=== PATIENT | male | born 1955 | race Caucasian/White ===

== ENCOUNTER → 2024-06-14 08:42 | Outpatient (BNVA) | payer MEDICARE, SELFPAY | PROVIDERS: PCP Nurse Practitioner Family; Visit Provider Nurse Practitioner Family | DX: Z13.6 Encounter for screening for cardiovascular disorders (principal); Z12.5 Encounter for screening for malignant neoplasm of prostate; E55.9 Vitamin D deficiency, unspecified; Z79.899 Other long term (current) drug therapy | CPT/HCPCS: 80053; 80061; 81003; 82306; 83036; 84443; 85025; G0103 ==

== ENCOUNTER → 2024-12-07 09:17 | Outpatient (BNVA) | payer MEDICARE, SELFPAY | PROVIDERS: PCP Nurse Practitioner Family; Visit Provider Nurse Practitioner Family | DX: L20.89 Other atopic dermatitis (principal); D22.39 Melanocytic nevi of other parts of face; D22.5 Melanocytic nevi of trunk; L57.8 Other skin changes due to chronic exposure to nonionizing radiation; L57.0 Actinic keratosis; X32.XXXA Exposure to sunlight, initial encounter; Z08 Encounter for follow-up examination after completed treatment for malignant neoplasm; Z85.820 Personal history of malignant melanoma of skin | CPT/HCPCS: 99204 ==

== ENCOUNTER 2025-02-22 12:14 | Emergency (ER) | payer MEDICARE, SELFPAY ==
--- OUTSIDE RECORDS SUMMARY | 2025-02-15 06:16 | XMS_ITS | Encounter Summary ---
Author Organization [facility] Address 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 Emergency Medicine [address] [facility] [address] [place] [address] Flako Bryant MD [address] [place] [phone] Billy Merritt MD [address] [place] [address] [place] [address] Acute bronchitis, unspecified organism (Primary Dx); Dysuria; Leukocytosis, unspecified type Discharge Disposition: Home or Self Care Social History Tobacco Use Types Packs/Day Years Used Date Smoking Tobacco: Never Smokeless Tobacco: Former Alcohol Use Standard Drinks/Week Comments Not Currently 0 (1 standard drink = 0.6 oz pure alcohol) Patient says he quit alcohol completely November 2022 Food Insecurity Answer Date Recorded Do you find you are eating l ess than you should because you can t pay for food? No 02/15/2025 Transportation Needs Answer Date Record ed Have you gone without health care because you didn t have a way to get there? Or worry about transportation for future doctor visits, knot picker cloth medication, etc.? No 2024 Housing Stability Answer Date Recorded Do you worry you won t have a steady place to sleep or struggle to pay rent or mortgage? No 02/15/2025 Utility Needs Answer Date Recorded Do you have difficulty payin g for utility costs (electric, water or gas bills)? No 02/15/2025 Medication Needs Answer Date Recorded Have you skipped taking medi cation due to cost or worry you can t afford new medications? No 02/15/2025 Feeling Safe Answer Date Recorded Are you in a relationship wi th someone who hurts you emotionally and/or physically? 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 Gender Identity Not on file Sexual Orientation Not on file documented as of this encounter Last Filed Vital Signs Vital Sign Reading Time Taken Comments Blood Pressure 113/64 02/15/2025 8:30 AM CDT Pulse 70 02/15/2025 8:30 AM CDT Temperature 36.1 C (97 F) 02/15/2025 6:20 AM CDT Respiratory Rate 15 02/15/2025 8:30 AM CDT Oxygen Saturation 99% 02/15/2025 8:30 AM CDT Inhaled Oxygen Concentration - - Weight 76.5 kg (168 lb 9.6 oz) 02/15/2025 6:20 A M CDT Height 182.9 cm (6') 02/15/2025 6:20 AM CDT Body Mass Index 22.87 02/15/2025 6:20 AM CDT documented in this encounter Discharge Instructions * Attachments The following attachments cannot be sent through Care Everywhere. * WBC: Elevated: General Info (Citizen Of [place]) * Dysuria ([place]izen [place]) * Bronchitis ([place]izen [place]) * Levofloxacin (Citizen [place]) documented in this encounter Medications at Time of Discharge omeprazole (PriLOSEC) 10 mg Capsule, Delayed Release(E.C.) Take 20 mg by mouth daily. levoFLOXacin (LEVAQUIN) 500 mg tablet Take 1 Tablet (500 mg) by mouth daily for 7 days. 7 Tablet 02/15/2025 02/22/2025 prednisoLONE 5 mg tablet Take 10 mg by mouth daily. ALPRAZolam (XANAX) 1 mg tablet Take 1 mg by mouth 3 times daily as needed. 10/27/2022 lovastatin (MEVACOR) 40 mg tablet Take 40 mg by mouth daily. 10/13/2022 famotidine (PEPCID) 20 mg tablet Take 20 mg by mouth daily. 10/27/2022 clonazePAM (KlonoPIN) 1 mg tabletIndications :MIGUEL A (generalized anxiety disorder) Take 1 Tablet (1 mg) by mouth 2 times daily as needed for Anxiety. 60 Tablet 5 07/15/2017 documented as of this encounter ED Notes * Elicia Phillips RN - 02/15/2025 6:27 AM CDT Srini Garcia is a 69 y.o. male who arrives to the Emergency Department by private car. Chief Complaint Patient presents with general weakness Cough Shortness of Breath Urinary Pain Patient states he feels like his blood levels are low again . Patient states he is having the samesymptoms as previously when he needed a blood transfusion. Patient is having general weakness, shortness of breath and dry cough. Patient also complains of burning with urination. Pain is 0/10. VSS, aaox4, behavior appropriate to circumstance, no acute distress at this time. Airway patent, self-maintained with even, non-labored respirations. Perfusion within normal limits for age. Skin color normal for ethnicity, warm, dry and intact. ID band present. Patient in bed in low position with wheels locked. Patient informed of plan of care. Patient verbalized understanding and in agreement with plan of care, all questions answered. Comfort measures offered. Monitors on and audible. Patient placed on continuous pulse ox and blood pressure monitoring. Call light at bedside. Patient encouraged to call with needs. Will continue to monitor. Weapons assessment performed. Education provided regarding facility weapon storage and securement policy. Srini Garcia denied possession of any weapons or firearms at this time * Billy Merritt MD - 02/15/2025 6:11 AM CDT 02/15/25 6:45 AM HISTORY OF PRESENT ILLNESS History of Present Illness This is a 69-year-old male with a history of watermelon stomach presenting to the ER feeling likehe is anemic. The patient reports feeling weak and fatigued for the past 3 days, similar to his condition 3 to 4 weeks ago when he experienced blood loss. He has not noticed any coffee ground stools, vomiting blood, or passing blood by rectum. He also reports no fevers or chills. He has been experiencing a dry cough for the past 3 to 4 days, which had previously subsided. He maintains hydration by consuming Sprite and water but experiences extreme thirst at night. He was diagnosed with watermelon stomach following 3 biopsies and was prescribed Prilosec, which has been effective in managing his stomach pain. He has been mindful of his diet, avoiding overeating and consuming Yakut yogurt. He occasionally takes Mylanta. He reports no current abdominal pain. The patient reports a burning sensation during urination but has no concerns about sexually transmitted diseases as he has had the same partner for a long time. PAST MEDICAL HISTORY REVIEWED MEDICAL: Patient has a past medical history of Anxiety, Hypercholesterolemia, Inflammatory arthritis, Joint pain, Malignant neoplasm of skin, and Prostatitis. SURGICAL: Patient has a past surgical history that includes pr colonoscopy flx dx w/collj spec when pfrmd (N/A, 03/04/2016); vasectomy; circumcision revision; skin cancer excision; and colonoscopy (N/A, 01/23/2023). ALLERGIES Patient has no known allergies. PHYSICAL EXAM INITIAL VS BP: 101/70 (02/15/25619), Heart Rate: 76 bpm (02/15/25619), Resp: 15 (02/15/25619), Pulse: 76(02/15/25619), Temp: 97 ??F (36.1 ??C) (02/15/25619), Temp src: Tympanic (02/15/25619), SpO2:96 % (02/15/25619), Height: 6' (182.9 cm) (02/15/25619), Weight: 76.5 kg (168 lb 9.6 oz) (02/15/25619), BMI (Calculated): 22.87 (02/15/25619) No LMP for male patient. Blood pressure 113/64, pulse 70, temperature 97 ??F (36.1 ??C), temperature source Tympanic, resp. rate 15, height 6' (1.829 m), weight 76.5 kg (168 lb 9.6 oz), SpO2 99%. Physical Exam Constitutional: General: He is not in acute distress. Appearance: He is well-developed and normal weight. He is not ill-appearing, toxic-appearing or diaphoretic. Cardiovascular: Rate and Rhythm: Normal rate and regular rhythm. Heart sounds: No murmur heard. No friction rub. No gallop. Pulmonary: Effort: Pulmonary effort is normal. Breath sounds: Normal breath sounds. No decreased breath sounds, wheezing, rhonchi or rales. Abdominal: Palpations: Abdomen is soft. There is no mass. Tenderness: There is no abdominal tenderness. There is no guarding or rebound. Musculoskeletal: General: Normal range of motion. Cervical back: Normal range of motion. Skin: General: Skin is warm and dry. Capillary Refill: Capillary refill takes less than 2 seconds. Neurological: General: No focal deficit present. Mental Status: He is alert and oriented to person, place, and time. Psychiatric: Mood and Affect: Mood normal. Behavior: Behavior normal. Physical Exam Constitutional: No acute distress Respiratory: Dry cough noted Gastrointestinal: No abdominal pain Genitourinary: Burning sensation during urination DIAGNOSTICS LAB: CBC WITH DIFFERENTIAL - Abnormal Result Value WBC 34.1 (*) RBC 2.53 (*) HEMOGLOBIN 9.0 (*) HEMATOCRIT 26.7 (*) MCV 105.5 (*) MCH 35.6 (*) MCHC 33.7 RDW 17.2 (*) RDW-STDEV 66.1 (*) PLATELETS 136 MPV 9.7 (*) NEUTROPHILS 28 (*) LYMPHOCYTES 20 (*) MONOCYTES 52 (*) EOSINOPHILS 0 (*) BASOPHILS 0 IMMATURE GRANULOCYTES 0 NEUTROPHIL ABSOLUTE 9.50 (*) LYMPHOCYTE ABSOLUTE 6.83 (*) MONOCYTE ABSOLUTE 17.54 (*) EOSINOPHIL ABSOLUTE 0.14 BASOPHILS ABSOLUTE 0.07 IMMATURE GRANULOCYTES ABSOLUTE 0.00 COMPREHENSIVE METABOLIC PANEL - Abnormal SODIUM 138 POTASSIUM 3.8 CHLORIDE 102 CO2 24 CALCIUM 8.8 BUN 16 CREATININE 1.13 GLUCOSE 109 (*) TOTAL PROTEIN 7.2 ALBUMIN 3.7 BILIRUBIN TOTAL 0.6 ALKALINE PHOSPHATASE 67 AST 15 ALT 12 GFR >60 ANION GAP 12 URINALYSIS WITH REFLEX MICROSCOPIC - Abnormal COLOR UA Yellow CLARITY UA Slightly Cloudy (*) SPECIFIC GRAVITY UA 1.015 PH UA 5.5 LEUKOCYTE ESTERASE UA Trace (*) NITRITE UA Negative PROTEIN UA Trace (*) GLUCOSE UA Negative KETONES UA Trace (*) UROBILINOGEN UA 0.2 BILIRUBIN UA Negative BLOOD UA Negative PROTIME-INR - Abnormal PROTIME 15.4 (*) INR 1.2 (*) INFLUENZA VIRUS A AND B, ANTIGEN DETECTION - Normal INFLUENZA A AG Not Detected INFLUENZA B AG Not Detected COVID-19 ANTIGEN - Normal COVID-19 ANTIGEN Presumptive Negative LACTIC ACID - Normal LACTIC ACID 1.1 BLOOD CULTURE BLOOD CULTURE BLOOD CULTURE BLOOD CULTURE MANUAL DIFFERENTIAL PLATELET EST. Consistent w Count RBC MORPHOLOGY Normal RADIOLOGY: XR CHEST PA OR AP 1 VW Radiologist Impression IMPRESSION: Please see below. Exam: XR CHEST PA OR AP 1 VW Date/Time of Exam: 02/15/2025 8:17 AM REASON FOR EXAM: Cough. DIAGNOSIS: See Reason for Exam. Findings: Comparison is made to the prior examination from 07/14/2017. There is some minimal infrahilar peribronchial thickening seen bilaterally. There is no peripheral consolidation, pneumothorax, or pleural effusion. The cardiac mediastinal silhouette is stable in appearance. Old healed left-sided rib fractures are again noted. There is a central mixed densities lesion in the proximal left humerus which is unchanged since 2018, likely representing a benign process such as bone infarct or enchondroma. IMPRESSION: Minimal infrahilar peribronchial thickening which could indicate bronchitis in the proper clinical setting. EKG: Results Laboratory Studies Hemoglobin is 8.9. Results independently interpreted by Billy Merritt MD PROCEDURES Procedures MEDICAL DECISION MAKING AND PLAN OF CARE Assessment & Plan Initial Assessment: 69-year-old male with a history of watermelon stomach presenting with symptoms of fatigue and weakness, suspecting anemia. Differential Diagnosis: - Anemia: Hemoglobin level 8.9, previously 6.5. Positive response to Prilosec. Fatigue likely not due to anemia. Administer liter of fluid. - Urinary Tract Infection (UTI): Reports burning during urination. Urine test to check for bacterial infection. ED Course: - Hemoglobin level obtained, 8.9 - Liter of fluid administered Final Assessment: Hemoglobin level increased to 8.9, indicating improvement. Fatigue likely not due to anemia. Administered liter of fluid. Urine test to check for UTI due to burning during urination. Clinical Impression: - Anemia - Urinary Tract Infection (UTI) Disposition: - Follow-Up: Urine test results pending Medical Decision Making I assumed care of this patient at shift change. Some of the labs were pending. I did interview and examine the patient. Patient has been fatigued for the past 3 days with a nonproductive cough as well. Some dysuria. No fever. He is not having any abdominal pain. Has not noticed any blood in his stools. States he had an EGD done with biopsies 2 weeks ago and has been diagnosed with watermelon stomach. His white count today is 34.1. Hemoglobin 9.0. CMP was normal. Urinalysis within normal limits. Lactic acid 1.1. Influenza and COVID-negative. Chest x-ray did not reveal any infiltrates. I discussed patient's lab results with him. He is somewhat anemic but not to the point where he needs another blood transfusion. He does have significant leukocytosis. Discussed whether or not he is currently on steroids. He had been prescribed prednisolone but he states he never did start taking that. Was alsoprescribed an antibiotic for bronchitis but had not started taking that either. At this point not sure what is causing that severe leukocytosis but he does not appear to be septic or toxic. I did place him on Levaquin to treat bronchitis as well as possible mild urinary tract and infection and/or prostatitis with the dysuria he is having. That should cover both. Recommended he follow-up with his primary care provider in 1 week for recheck of his CBC. If he continues to have a severe leukocytosis will need referral to hematology for further workup. He was discharged in stable condition. Amount and/or Complexity of Data Reviewed Labs: ordered. Radiology: ordered. Risk Prescription drug management. Clinical Scoring & Consults Medications Administered During the ED Stay from 02/15/2025 0611 to 02/16/2025 1038 Date/Time Order Dose Route Action 02/15/2025 0807 CDT sodium chloride 0.9 % bolus solution 1,000 mL 0 mL IV Stopped 02/15/2025 0737 CDT sodium chloride 0.9 % bolus solution 1,000 mL 1,000 mL IV New Bag Discharge Medication List as of 02/15/2025 8:41 AM START taking these medications Details levoFLOXacin (LEVAQUIN) 500 mg tablet Take 1 Tablet (500 mg) by mouth daily for 7 days., Disp-7 Tablet, R-0 CONTINUE these medications which have NOT CHANGED Details omeprazole (PriLOSEC) 10 mg Capsule, Delayed Release(E.C.) Take 20 mg by mouth daily. prednisoLONE 5 mg tablet Take 10 mg by mouth daily. ALPRAZolam (XANAX) 1 mg tablet Take 1 mg by mouth 3 times daily as needed. lovastatin (MEVACOR) 40 mg tablet Take 40 mg by mouth daily. famotidine (PEPCID) 20 mg tablet Take 20 mg by mouth daily. clonazePAM (KlonoPIN) 1 mg tablet Take 1 Tablet (1 mg) by mouth 2 times daily as needed for Anxiety., Disp-60 Tablet, R-5 STOP taking these medications meloxicam (MOBIC) 15 mg tablet Comments: Reason for Stopping: LAST VS BP: 113/64 (02/15/25829), Heart Rate: 76 bpm (02/15/25619), Resp: 15 (02/15/25829), Pulse: 70(02/15/25829), Temp: 97 ??F (36.1 ??C) (02/15/25619), Temp src: Tympanic (02/15/25619), SpO2:99 % (02/15/25829) CLINICAL IMPRESSION Diagnoses Diagnosis Comment Added By Time Added Acute bronchitis, unspecified organism [J20.9] Billy Merritt MD 02/15/2025 8:38 AM Dysuria [R30.0] Billy Merritt MD 02/15/2025 8:38 AM Leukocytosis, unspecified type [D72.829] Billy Merritt MD 02/15/2025 8:38 AM DISPOSITION, EDUCATION AND MEDICATION RECONCILIATION Medications reconciled. See after visit summary for patient education on discharged patients. ED Disposition ED Disposition Discharge Condition Stable User Billy Merritt MD Date/Time ThuFeb 15, 2025 8:37 AM Comment -- documented in this encounter Miscellaneous Notes * Gen AI YNOI - GENERATIVE AI HANDOFF NOTE - 02/16/2025 11:43 PM CDT ## ER_course: ## # DIAGNOSIS: Acute bronchitis, dysuria, and leukocytosis. # Srini Garcia, a 69-year-old male with a history of watermelon stomach, presented to the ER with symptoms of general weakness, shortness of breath, dry cough, and burning sensation during urination. He suspected anemia due to similar symptoms experienced previously when he required a blood transfusion. # Abnormal findings included a hemoglobin level of 8.9, indicating mild anemia, and significant leukocytosis with a white blood cell count of 34.1. The chest X-ray showed minimal infrahilar peribronchial thickening, suggestive of bronchitis. Urinalysis showed trace leukocyte esterase and protein, with slightly cloudy urine. # During the ER visit, the patient received a liter of IV fluid. Levofloxacin (Levaquin) was administered to treat suspected bronchitis and possible mild urinary tract infection or prostatitis. The patient was not in acute distress and was discharged in stable condition. ## Follow_up_orders: ## # The patient was started on a new prescription of levofloxacin (Levaquin) 500 mg daily for 7 days. # The patient is advised to follow up with his primary care provider in one week for a recheck of his CBC. If severe leukocytosis persists, a referral to hematology for further workup is recommended. # Urine test results are pending at discharge. # The patient was instructed to stop taking meloxicam (Mobic). ## Home_Situation: ## # No specific factors potentially impairing follow-up care were noted in the ER notes. documented in this encounter Plan of Treatment Not on file documented as of this encounter Procedures Procedure Name Priority Date/Time Associated Diagnosis Comments XR CHEST PA OR AP 1 VW Stat 8:17 AM CDT URINALYSIS W/REFLEX MICROSCOPIC Stat 02/15/2025 7:40 AM CDT COVID-19 ANTIGEN Stat 02/15/2025 7:38 AM CDT INFLUENZA VIRUS A AND B, ANTIGEN DETECTION Stat 02/15/2025 7:38 AM CDT BLOOD CULTURE Stat 02/15/2025 7:35 AM CDT BLOOD CULTURE Stat 02/15/2025 7:35 AM CDT BLOOD CULTURE Stat 02/15/2025 7:30 AM CDT BLOOD CULTURE Stat 02/15/2025 7:30 AM CDT DIFFERENTIAL, MANUAL Stat 02/15/2025 6:28 AM CDT LACTIC ACID Stat 02/15/2025 6:28 AM CDT CBC WITH DIFFERENTIAL Stat 02/15/2025 6:28 AM CDT PROTIME-INR Stat 02/15/2025 6:28 AM CDT COMPREHENSIVE METABOLIC PANEL Stat 02/15/2025 6:28 AM CDT documented in this encounter Results * XR CHEST PA OR AP 1 VW (02/15/2025 8:17 AM CDT) Anatomical Region Laterality Modality Chest Computed Radiogr aphy 02/15/2025 8:17 AM CDT Impressions 02/15/2025 8:31 AM CDT IMPRESSION: Please see below. Exam: XR CHEST PA OR AP 1 VW Date/Time of Exam: 02/15/2025 8:17 AM REASON FOR EXAM: Cough. DIAGNOSIS: See Reason for Exam. Findings: Comparison is made to the prior examination from 07/14/2017. There is some minimal infrahilar peribronchial thickening seen bilaterally. There is no peripheral consolidation, pneumothorax, or pleural effusion. The cardiac mediastinal silhouette is stable in appearance. Old healed left-sided rib fractures are again noted. There is a central mixed densities lesion in the proximal left humerus which is unchanged since 2018, likely representing a benign process such as bone infarct or enchondroma. IMPRESSION: Minimal infrahilar peribronchial thickening which could indicate bronchitis in the proper clinical setting. Narrative Procedure Note Gus Sargent MD - 02/15/2025 IMPRESSION: Please see below. Exam: XR CHEST PA OR AP 1 VW Date/Time of Exam: 02/15/2025 8:17 AM REASON FOR EXAM: Cough. DIAGNOSIS: See Reason for Exam. Findings: Comparison is made to the prior examination from 07/14/2017. There is some minimal infrahilar peribronchial thickening seen bilaterally. There is no peripheral consolidation, pneumothorax, or pleural effusion. The cardiac mediastinal silhouette is stable in appearance. Old healed left-sided rib fractures are again noted. There is a central mixed densities lesion in the proximal left humerus which is unchanged since 2018, likely representing a benign process such as bone infarct or enchondroma. IMPRESSION: Minimal infrahilar peribronchial thickening which could indicate bronchitis in the proper clinical setting. us Billy Merritt MD DIAGNOSTIC IMAGING ORDER LUIS E Final Result * (ABNORMAL) URINALYSIS WITH REFLEX MICROSCOPIC (02/15/2025 7:40 AM CDT) COLOR UA Yellow Pale to Dark Yellow 02/15/2025 7:51 AM [facility] CLARITY UA Slightly Cloudy(A) Clear 02/15/2025 7:51 AM [facility] SPECIFIC GRAVITY UA 1.015 1.003 - 1.035 02/15/2025 7:51 AM T [facility] PH UA 5.5 5.0 - 8.0 02/15/2025 7:51 AM [facility] LEUKOCYTE ESTERASE UA Trace(A) Negative 02/15/2025 7:51 AM T [facility] NITRITE UA Negative Negative 02/15/2025 7:51 AM T [facility] PROTEIN UA Trace(A) Negative 02/15/2025 7:51 AM T [facility] GLUCOSE UA Negative Negative 02/15/2025 7:51 AM T [facility] KETONES UA Trace(A) Negative 02/15/2025 7:51 AM CDT [facility] UROBILINOGEN UA 0.2 <2.0 mg/dL 7:51 AM CDT [facility] BILIRUBIN UA Negative Negative 02/15/2025 7:51 AM CDT [facility] BLOOD UA Negative Negative 02/15/2025 7:51 AM CDT [facility] Urine URINE SPECIMEN OBTAINED BY CLEAN CATCH PROCEDURE / Unknown Collection / Unknown 02/15/2025 7:40 AM CDT 02/15/2025 7:47 AM CDT us Flako Bryant MD URINE ORDERABLES Carmela l Result Performing Organization Address City/[facility]/ZIP Co de Phone Number [facility] CLIA # [id number] [address] [place] [id number] * INFLUENZA VIRUS A AND B, ANTIGEN DETECTION (02/15/2025 7:38 AM CDT) Pathologist [facility] INFLUENZA A AG NOT DETECTED Not Detected 02/15/2025 8:08 AM CDT [facility] INFLUENZA B AG NOT DETECTED Not Detected 02/15/2025 8:08 AM CDT [facility] Upper Respiratory ENTIRE NASOPHARYNX / Unknown Collection / Unknown 02/15/2025 7:38 AM CDT 02/15/2025 7:47 AM CDT Narrative [facility] - 02/15/2025 8:08 AM CDT Negative results do not rule out infection. If clinically indicated, consider PCR testing which is more sensitive than antigen testing. If PCR testing is desired, consult with your local laboratory as sample recollection may be required. us Billy Merritt MD MICROBIOLOGY - GENERAL O RDERABLES Final Result Performing Organization Address City/[facility]/ZIP Co de Phone Number [facility] CLIA # [id number] [address] [place] [id number] * COVID-19 ANTIGEN (02/15/2025 7:38 AM CDT) COVID-19 ANTIGEN Presumptive Negative Presumptive Negative 02/15/2025 8:08 AM CDT [facility] Upper Respiratory ANTERIOR NARES SWAB / Unknown Collection / Unknown 02/15/2025 7:38 AM CDT 02/15/2025 7:47 AM CDT Narrative [facility] - 02/15/2025 8:08 AM CDT Jaida SARS antigen test has been authorized by FDA under an emergency use authorization (EUA) and has been authorized only for the detection of proteins from SARS-CoV-2 and influenza, not for any other viruses or pathogens. Jaida SARS Antigen JES is intended for the simultaneous qualitative detection and differentiation of nucleocapsid protein antigen from SARS-CoV-2 directly from nasopharyngeal (SALES OPERATIONS MANAGER) and nasal (NS) swab specimens collected from individuals who are suspected of respiratory viral infection consistent with COVID-19 by their healthcare provider within the first five (5) days of symptom onset when tested at least twice over three days with at least 48 hours between tests, or from individuals without symptoms or other epidemiological reasons to suspect COVID-19 when tested at least three times over five days with at least 48 hours between tests. This test is only authorized for the duration of the declaration that circumstances exist justifying the authorization of emergency use of in vitro diagnostics for detection and/or diagnosis of the virus that causes COVID-19 under Section 564(b)(1) of the Act, 21 U.S.C. 360bbb-3(b)(1), unless the authorization is terminated or revoked sooner. Negative results should be treated as presumptive and confirmed with a molecular assay, if necessary for patient care. Serial testing should be performed in individuals with negative results at least twice over three days (with 48 hours between tests) for symptomatic individuals or from individuals without symptoms or other epidemiological reasons to suspect COVID-19 when tested at least three times over five days with at least 48 hours between tests. Billy Merritt MD MICROBIOLOGY - GENERAL O RDERABLES Final Result [facility] CLIA # [id number] [address] [address] * BLOOD CULTURE (02/15/2025 7:35 AM CDT) BLOOD CULTURE No growth 02/20/2025 5:57 PM CDT [facility] Blood (Peripheral) Collection / Unknown 02/15/2025 7:35 AM CDT 02/15/2025 8:09 AM CDT Billy Merritt MD MICROBIOLOGY - GENERAL O RDERABLES Final Result [facility] CLIA # [id number] [facility] [address] * BLOOD CULTURE (02/15/2025 7:30 AM CDT) BLOOD CULTURE No growth 02/20/2025 5:57 PM CDT [facility] Blood (Peripheral) Collection / Unknown 02/15/2025 7:30 AM CDT 02/15/2025 8:09 AM CDT Billy Merritt MD MICROBIOLOGY - GENERAL O RDERABLES Final Result [facility] CLIA # [id number] [address] [place] [address] * LACTIC ACID (02/15/2025 6:28 AM CDT) LACTIC ACID 1.1 <=2.0 mmol/L 02/15/2025 8:18 AM CDT [facility] Blood BLOOD SPECIMEN / Unknown Collection / Unknown 02/15/2025 6:28 AM CDT 02/15/2025 7:59 AM CDT Billy Merritt MD CHEMISTRY ORDERABLES Fin al Result Performing Organization Address [facility]/ZIP Co de Phone Number [id number] [address] [place] [phone] * MANUAL DIFFERENTIAL (02/15/2025 6:28 AM CDT) [facility] PLATELET EST. Consistent w Count 02/15/2025 6:52 AM CDT [facility] RBC MORPHOLOGY Normal 02/15/2025 6:52 AM CDT [facility] Blood BLOOD SPECIMEN / Unknown Collection / Unknown 02/15/2025 6:28 AM CDT 02/15/2025 6:44 AM CDT Flako Bryant MD HEMATOLOGY ORDERABLES COM Final Result Performing Organization Address [facility] Co de Phone Number [facility] [id number] [address] [place] [address] * (ABNORMAL) PROTIME-INR (02/15/2025 6:28 AM CDT) [facility] PROTIME 15.4(H) 12.1 - 14.3 Seconds 02/15/2025 7:02 AM CDT [facility] INR 1.2(H) 0.9 - 1.1 02/15/2025 7:02 AM CDT [facility] Blood BLOOD SPECIMEN / Unknown Collection / Unknown 02/15/2025 6:28 AM CDT 02/15/2025 6:54 AM CDT us Flako Bryant MD HEMATOLOGY ORDERABLES Final Result Performing Organization Address [facility]/ZIP Co de Phone Number [facility] [id number] [address] [place] [address] * (ABNORMAL) COMPREHENSIVE METABOLIC PANEL (02/15/2025 6:28 AM CDT) [facility] SODIUM 138 136 - 145 mmol/L 02/15/2025 6:59 AM [facility] POTASSIUM 3.8 3.5 - 5.1 mmol/L 02/15/2025 6:59 AM [facility] CHLORIDE 102 98 - 107 mmol/L 02/15/2025 6:59 AM [facility] CO2 24 22 - 29 mmol/L 02/15/2025 6:59 AM [facility] CALCIUM 8.8 8.8 - 10.2 mg/dL 02/15/2025 6:59 AM [facility] BUN 16 8 - 23 mg/dL 02/15/2025 6:59 AM [facility] CREATININE 1.13 0.67 - 1.17 mg/dL 02/15/2025 6:59 AM [facility] GLUCOSE 109(H) 74 - 99 mg/dL 02/15/2025 6:59 AM [facility] TOTAL PROTEIN 7.2 6.6 - 8.7 g/dL 02/15/2025 6:59 AM [facility] ALBUMIN 3.7 3.5 - 5.2 g/dL 02/15/2025 6:59 AM [facility] BILIRUBIN TOTAL 0.6 0.0 - 1.2 mg/dL 02/15/2025 6:59 AM [facility] ALKALINE PHOSPHATASE 67 40 - 129 U/L 02/15/2025 6:59 AM [facility] AST 15 0 - 50 U/L 02/15/2025 6:59 AM [facility] ALT 12 0 - 50 U/L 02/15/2025 6:59 AM [facility] GFR >60 >=60 mL/min/1.7 3 sq meter 02/15/2025 6:59 AM [facility] Comment:eGFR calculated with 2020 CKD-EPI equation. Vegetarian diet, extremely high or low muscle mass, and may affect results. Cystatin C with Glomerular Filtration Rate is a suitable alternative for these patients. ANION GAP 12 5 - 20 mmol/L 02/15/2025 6:59 AM [facility] Blood BLOOD SPECIMEN / Unknown Collection / Unknown 02/15/2025 6:28 AM CDT 02/15/2025 6:44 AM CDT Flako Bryant MD CHEMISTRY ORDERABLES Final Result [facility] CLIA # [id number] [address] [place] [address] * (ABNORMAL) CBC WITH DIFFERENTIAL (02/15/2025 6:28 AM CDT) WBC 34.1(H) 4.2 - 9.1 K/uL 02/15/2025 6:52 AM [facility] RBC 2.53(L) 4.63 - 6.08 M/uL 02/15/2025 6:52 AM [facility] HEMOGLOBIN 9.0(L) 13.7 - 17.5 g/dL 02/15/2025 6:52 AM [facility] HEMATOCRIT 26.7(L) 40.1 - 51.0 % 02/15/2025 6:52 AM [facility] MCV 105.5(H) 79.0 - 92.2 fL 02/15/2025 6:52 AM [facility] MCH 35.6(H) 25.7 - 32.2 pg 02/15/2025 6:52 AM [facility] MCHC 33.7 32.3 - 36.5 g/dL 02/15/2025 6:52 AM [facility] RDW 17.2(H) 11.0 - 14.5 % 02/15/2025 6:52 AM [facility] RDW-STDEV 66.1(H) 36.9 - 56.9 fL 02/15/2025 6:52 AM [facility] PLATELETS 136 130 - 400 K/uL 02/15/2025 6:52 AM [facility] MPV 9.7(L) 10.0 - 14.8 fL 02/15/2025 6:52 AM [facility] NEUTROPHILS 28(L) 34 - 68 % 02/15/2025 6:52 AM [facility] LYMPHOCYTES 20(L) 22 - 53 % 02/15/2025 6:52 AM [facility] MONOCYTES 52(H) 5 - 12 % 02/15/2025 6:52 AM [facility] EOSINOPHILS 0(L) 1 - 7 % 02/15/2025 6:52 AM [facility] BASOPHILS 0 0 - 1 % 02/15/2025 6:52 AM [facility] IMMATURE GRANULOCYTES 0 % 02/15/2025 6:52 AM [facility] NEUTROPHIL ABSOLUTE 9.50(H) 1.78 - 5.38 K/uL 02/15/2025 6:52 AM [facility] LYMPHOCYTE ABSOLUTE 6.83(H) 1.20 - 3.40 K/uL 02/15/2025 6:52 AM [facility] MONOCYTE ABSOLUTE 17.54(H) 0.30 - 0.82 K/uL 02/15/2025 6:52 AM [facility] EOSINOPHIL ABSOLUTE 0.14 0.04 - 0.54 K/uL 02/15/2025 6:52 AM [facility] BASOPHILS ABSOLUTE 0.07 0.01 - 0.08 K/uL 02/15/2025 6:52 AM [facility] IMMATURE GRANULOCYTES ABSOLUTE 0.00 K/uL 02/15/2025 6:52 AM [facility] Blood BLOOD SPECIMEN / Unknown Collection / Unknown 02/15/2025 6:28 AM CDT 02/15/2025 6:44 AM CDT us Flako Bryant MD HEMATOLOGY ORDERABLES Final Result [facility] CLIA # [id number] [address] [place] [address] documented in this encounter Visit Diagnoses Diagnosis Acute bronchitis, unspecified organism- Primary Dysuria Leukocytosis, unspecified type documented in this encounter Administered Medications Inactive Administered Medications - up to 3 most recent administrations Medication Order MAR Action Action Date Dose Rate Site sodium chloride 0.9 % bolus solution 1,000 mL 1,000 mL, IV, ONE TIME ONLY, 1 dose, On Thu02/15/25 at 0730, at 2,000 mL/hr, Administer over 30 Minutes, Routine New Bag 02/15/2025 7:37 AM CDT 1,000 mL 2000 mL/hr documented in this encounter Active and Recently Administered Medications Times are shown in CDT. Scheduled Medication Order 02/13/2025 02/14/2025 02/15/2025 sodium chloride 0.9 % bolus solution 1,000 mL (COMPLETED) 1,000 mL, IV, ONE TIME ONLY, 1 dose, On Thu02/15/25 at 0730, at 2,000 mL/hr, Administer over 30 Minutes, Routine 0737 (New Bag - Prov ider: Alan Best RN)0807 (Stopped - Provider: Alan Best RN) documented in this encounter Additional Health Concerns Infection Onset Date Last Indicated Resolved Time R/O COVID-19 02/15/2025 02/15/2025 02/15/2025 8:08 AM CDT documented as of this encounter Care Teams Golf Cart Repairer Relationship Specialty Start Date End Date Mayelin Alfaro MD [address] [facility] [address] [place] [address] PCP - General Family Practice 07/14/17 documented as of this encounter
--- OUTSIDE RECORDS SUMMARY | 2025-02-22 12:26 | XMS_ITS | Encounter Summary ---
Author Organization [facility] Address [address] [place] [address] Care Team Providers Care Fancy Needleworker Name Role Phone Mayelin Alfaro MD Primary Care Provider [phone] Encounter Details Date Type Department Care Team (Late st Contact Info) Description 02/16/2025 External Device Data [facility] Medicine Chris [address] [facility] [address] Alla Mai MD [address] [facility] [place] [address] Social History Tobacco Use Types Packs/Day Years [...] worry about transportation for future doctor visits, case picker medication, etc.? 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
--- OUTSIDE RECORDS SUMMARY | 2025-02-22 12:26 | XMS_ITS | Encounter Summary ---
Author Organization [facility] Address [address] [place] [address] Care Team Providers Care Sheet Heater Name Role Phone Mayelin Alfaro MD Primary Care Provider [phone] Encounter Details Date Type Department Care Team (Late st Contact Info) Description 02/17/2025 Results Follow-Up [facility] Emergency Medicine [address] [address] Vanessa Salguero, MATTRESS RENOVATOR [address] [address] BLOOD CULTURE, BLOOD CULTURE Social History Tobacco Use Types Packs/Day Years [...] worry about transportation for future doctor visits, seed cone picker medication, etc.? 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
--- OUTSIDE RECORDS SUMMARY | 2025-02-22 12:26 | XMS_ITS | Encounter Summary ---
Author Organization [facility] Address [address] [place] [address] Care Team Providers Care Excellence Coach Name Role Phone Mayelin Alfaro MD Primary Care Provider [phone] Encounter Details Date Type Department Care Team (Late st Contact Info) Description 02/08/2025 Results Follow-Up [facility] Hospitalists [address] [address] Veena Jules FNP [address] [address] IRON, TIBC, AND PERCENT SATURATION, VITAMIN B12 LEVEL, FERRITIN Social History Tobacco Use Types Packs/Day Years Used Date Smoking Tobacco: Never Smokeless Tobacco: Former Alcohol Use Standard Drinks/Week Comments Not Currently 0 (1 standard drink = 0.6 oz pure alcohol) Patient says he quit alcohol completely November 2022 Feeling Safe Answer Date Recorded Are you in a relationship wi th someone who hurts you emotionally and/or physically? 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
--- OUTSIDE RECORDS SUMMARY | 2025-02-22 12:26 | XMS_ITS | Encounter Summary ---
Author Organization [facility] Address [address] [place] [address] Care Team Providers Care Property Claim Rep Name Role Phone Mayelin Alfaro MD Primary Care Provider [phone] Encounter Details Date Type Department Care Team (Late st Contact Info) Description 02/21/2025 External Device Data [facility] Provider, Abstract NO ADDRESS ON FILE Social History Tobacco Use Types Packs/Day Years [...] worry about transportation for future doctor visits, picker machine operator medication, etc.? 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
--- OUTSIDE RECORDS SUMMARY | 2025-02-22 12:26 | XMS_ITS | Clinical Summary ---
Author Organization [facility] Address [address] 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 60 Tablet 5 07/15/2017 Active lovastatin (MEVACOR) 40 mg tablet Take 40 mg by mouth daily. 10/13/2022 Active famotidine (PEPCID) 20 mg tablet Take 20 mg by mouth daily. 10/27/2022 Active ALPRAZolam (XANAX) 1 mg tablet Take 1 mg by mouth 3 times daily as needed. 10/27/2022 Active prednisoLONE 5 mg tablet Take 10 mg by mouth daily. Active omeprazole (PriLOSEC) 10 mg Capsule, Delayed Release(E.C.) Take 20 mg by mouth daily. Active levoFLOXacin (LEVAQUIN) 500 mg tablet Take 1 Tablet (500 mg) by mouth daily for 7 days. 7 Tablet 02/15/2025 Active Active Problems Problem Noted Date Diagnosed Date Osteoarthritis of multiple joints 07/15/2017 Chronic pain syndrome 07/15/2017 MIGUEL A (generalized anxiety disorder) 07/15/2017 Internal hemorrhoids 03/04/2016 Resolved Problems Problem Noted Date Diagnosed Date Resolved Date Screening for colon cancer 03/04/2016 1 Encounters Date Type Department Care Team Description 02/21/2025 External Device Data [facility] ABSTRACTION Provider, Abstract 02/21/2025 External Device Data [facility] ABSTRACTION Provider, Abstract 02/17/2025 Results Follow-Up [facility] [address] [facility] [address] [place] [address] Vanessa Salguero APRN BLOOD CULTURE, BLOOD CULTURE 02/16/2025 External Device Data [facility] [place] [address] [place] [id number] Alla Mai MD 02/15/2025 6:16 AM CDT - 02/15/2025 8:43 AM CDT [facility] [address] [facility] [address] [place] [address] Flako Bryant MD Sindlinger, Timothy S, MD Acute bronchitis, unspecified organism (Primary Dx); Dysuria; Leukocytosis, unspecified type Discharge Disposition: Home or Self Care 02/14/2025 External Device Data [facility] ABSTRACTION Provider, Abstract 02/08/2025 Results [facility] [address] [facility] [address] [place] [address] Veena Jules FNP IRON, TIBC, AND PERCENT SATURATION, VITAMIN B12 LEVEL, FERRITIN 02/07/2025 External Device Data [facility] Provider, Abstract 02/07/2025 External Device Data [facility] ABSTRACTION Provider, Abstract 02/07/2025 External Device Data [facility] ABSTRACTION Provider, Abstract 02/06/2025 5:13 PM CDT - 02/07/2025 2:00 AM CDT [facility] [address] [facility] [address] [place] [address] Christina Clark MD Sindlinger, Billy Berger MD Anemia, unspecified type (Primary Dx) Discharge Disposition: Home or Self Care 02/06/2025 Travel 02/06/2025 - 02/06/2025 4:31 PM CDT [facility] [address] [facility] [address] [place] [address] Discharge Disposition: Home or Self Care from Last 3 Months Family History Medical History Relation Name Comments Drug Abuse Brother at age 38 Alzheimer's Disease Father COPD Mother Diabetes Mother Sudden Sister at age 42 Suicide Colon Cancer Neg Hx Relation Name Status Comments Brother Father Mother Sister Social History Tobacco Use Types Packs/Day Years Used Date Smoking Tobacco: Never Smokeless Tobacco: Former Tobacco Cessation:Counseling Given: Not Answered Alcohol Use Standard Drinks/Week Comments Not Currently [...] worry about transportation for future doctor visits, medicinal plant picker medication, etc.? 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 Gender Identity Not on file Sexual Orientation Not on file Last Filed Vital Signs Vital Sign Reading [...] Mass Index 22.87 02/15/2025 6:20 AM CDT Plan of Treatment Health Maintenance Due Date Last Done Comments FIT/ DNA Q 3 YEARS (AUTO ORDER) 02/27/1974 FIT/FOBT Q 1 YEAR (AUTO ORDER) 02/27/1974 FLEX SIG/CT COLONOGRAPHY Q 5 YEARS (AUTO ORDER) 02/27/1974 FIT-DNA Q 3 years 02/27/2001 FIT/FOBT Q 1 year 02/27/2001 Flex Sig/CT Colonography Q 5 years 02/27/2001 PNEUMOCOCCAL VACCINE 50+ YEA RS (1 of 1 - PCV) 02/27/2006 ZOSTER VACCINE (1 of 2) 02/27/2006 Medicare Advantage ([place]) Prev entative Visit/Annual Wellness Visit 05/11/2024 INFLUENZA VACCINE (#1) 2024 03/25/2023 DTAP/TDAP/TD VACCINES (2 - T d or Tdap) 05/28/2030 05/28/2020 RSV VACCINE (60+ or ) (1 - 1-dose 75+ series) 02/27/2031 COLORECTAL CANCER SCREENING (AUTO ORDER) 01/23/2033 01/23/2023, 03/04/2016, 03/04/2016 COLORECTAL SCREENING 01/23/2033 01/23/2023, 03/04/2016, 03/04/2016 Colorectal Cancer Screening (AUTO ORDER) 01/23/2033 Colorectal Cancer Screening 01/23/2033 Procedures Procedure Name Priority Date/Time Associated Diagnosis [...] BLOOD CULTURE Stat 02/15/2025 7:30 AM CDT LACTIC ACID Stat 02/15/2025 6:28 AM CDT DIFFERENTIAL, MANUAL Stat 02/15/2025 6:28 AM CDT PROTIME-INR Stat 02/15/2025 6:28 AM CDT COMPREHENSIVE METABOLIC PANEL Stat 02/15/2025 6:28 AM CDT CBC WITH DIFFERENTIAL Stat 02/15/2025 6:28 AM CDT HEMOGLOBIN AND HEMATOCRIT Stat 02/07/2025 1:20 AM CDT TRANSFUSE PACKED RED BLOOD CELLS Routine 02/06/2025 7:37 PM CDT EKG 12-LEAD Stat 02/06/2025 6:[address] CHEST ABDOMEN PELVIS W CONT Stat 02/06/2025 6:31 PM CDT PREPARE RED BLOOD CELLS Stat 02/06/2025 6:03 PM CDT VERIFICATION BLOOD GROUP Stat 02/06/2025 5:28 PM CDT FERRITIN Stat 02/06/2025 5:28 PM CDT VITAMIN B12 LEVEL Stat 02/06/2025 5:2 8 PM CDT IRON, TIBC, AND PERCENT SATURATION Stat 02/06/2025 5:28 PM CDT TYPE AND SCREEN Stat 02/06/2025 5:25 PM CDT DIFFERENTIAL, MANUAL Stat 02/06/2025 5:25 PM CDT C-REACTIVE PROTEIN Stat 02/06/2025 5: 25 PM CDT BRAIN NATRIURETIC PEPTIDE, BNP OR PROBNP Stat 02/06/2025 5:25 PM CDT COMPREHENSIVE METABOLIC PANEL Stat 02/06/2025 5:25 PM CDT PTT Stat 02/06/2025 5:25 PM CDT PROTIME-INR Stat 02/06/2025 5:25 PM CDT CBC WITH DIFFERENTIAL Stat 02/06/2025 5:25 PM CDT from Last 3 Months Results * XR CHEST PA OR AP [...] Pale to Dark Yellow 02/15/2025 7:51 AM [facility] CLARITY UA Slightly Cloudy(A) Clear 02/15/2025 7:51 AM [facility] SPECIFIC GRAVITY UA 1.015 1.003 - 1.035 02/15/2025 7:51 AM [facility] PH UA 5.5 5.0 - 8.0 02/15/2025 7:51 AM [facility] LEUKOCYTE ESTERASE UA Trace(A) Negative 02/15/2025 7:51 AM [facility] NITRITE UA Negative Negative 02/15/2025 7:51 AM [facility] PROTEIN UA Trace(A) Negative 02/15/2025 7:51 AM [facility] GLUCOSE UA Negative Negative 02/15/2025 7:51 AM [facility] KETONES UA Trace(A) Negative 02/15/2025 7:51 AM [facility] UROBILINOGEN UA 0.2 <2.0 mg/dL 7:51 AM [facility] BILIRUBIN UA Negative Negative 02/15/2025 7:51 AM [facility] BLOOD UA Negative Negative 02/15/2025 7:51 AM [facility] Urine URINE SPECIMEN OBTAINED BY CLEAN CATCH PROCEDURE / Unknown Collection / Unknown 02/15/2025 7:40 AM CDT 02/15/2025 7:47 AM CDT Flako Bryant MD URINE ORDERABLES Carmela estrella Result [facility] CLIA # [id number] [address] [place] [phone] * COVID-19 ANTIGEN (02/15/2025 7:38 AM CDT) COVID-19 ANTIGEN Presumptive Negative Presumptive Negative 02/15/2025 8:08 AM CDT [facility] Upper Respiratory ANTERIOR NARES SWAB / Unknown Collection / Unknown 02/15/2025 7:38 AM CDT 02/15/2025 7:47 AM CDT Narrative [facility] - 02/15/2025 8:08 AM CDT Jaida SARS antigen test has been authorized by FDA under an emergency use authorization (EUA) and has been authorized only for the detection of proteins from SARS-CoV-2 and influenza, not for any other viruses or pathogens. Jaida SARS Antigen JES is intended for the simultaneous qualitative detection and differentiation of nucleocapsid protein antigen from SARS-CoV-2 directly from nasopharyngeal (HOLLOW WARE MAKER) and nasal (NS) swab specimens collected from [...] O RDERABLES Final Result Performing Organization Address City/[facility]/ZIP Co de Phone Number [facility] CLIA # [id number] [address] [place] [phone] * INFLUENZA VIRUS A AND B, ANTIGEN DETECTION (02/15/2025 7:38 AM CDT) [facility] INFLUENZA A AG NOT DETECTED Not Detected 02/15/2025 8:08 AM CDT [facility] INFLUENZA B AG NOT DETECTED Not Detected 02/15/2025 8:08 AM CDT [facility] Upper Respiratory ENTIRE NASOPHARYNX / Unknown Collection / Unknown 02/15/2025 7:38 AM CDT 02/15/2025 7:47 AM CDT [facility] - 02/15/2025 8:08 AM CDT Negative results do not rule out infection. If clinically indicated, consider PCR testing which is more sensitive than antigen testing. If PCR testing is desired, consult with your local laboratory as sample recollection may be required. Billy Merritt MD MICROBIOLOGY - GENERAL O RDERABLES Final Result Performing Organization Address City/[facility] Co de Phone Number [facility] CLIA # [id number] [address] [place] [id number] * BLOOD CULTURE (02/15/2025 7:35 AM CDT) Only the most recent of2 resultswithin the time period is included. [facility] BLOOD CULTURE No growth 02/20/2025 5:57 PM CDT [facility] Blood (Peripheral) Collection / Unknown 02/15/2025 7:35 AM CDT 02/15/2025 8:09 AM CDT Billy Merritt MD MICROBIOLOGY - GENERAL O RDERABLES Final Result Performing Organization Address City/[facility]/ZIP Co de Phone Number [facility] CLIA # [id number] [id number] [place] [address] * MANUAL DIFFERENTIAL (02/15/2025 6:28 AM CDT) Only the most recent of2 resultswithin the time period is included. PLATELET EST. Consistent w Count 02/15/2025 6:52 AM CDT [facility] RBC MORPHOLOGY Normal 02/15/2025 6:52 AM CDT [facility] Blood BLOOD SPECIMEN / Unknown Collection / Unknown 02/15/2025 6:28 AM CDT 02/15/2025 6:44 AM CDT us Flako Bryant MD HEMATOLOGY ORDERABLES COM Final Result Performing Organization Address [facility]/ZIP Co de Phone Number [facility] CLIA # [id number] [address] [place] [address] [phone] * LACTIC ACID (02/15/2025 6:28 AM CDT) LACTIC ACID 1.1 <=2.0 mmol/L 02/15/2025 8:18 AM CDT [facility] Blood BLOOD SPECIMEN / Unknown Collection / Unknown 02/15/2025 6:28 AM CDT 02/15/2025 7:59 AM CDT us Billy Merritt MD CHEMISTRY ORDERABLES Fin al Result Performing Organization Address City/[facility]/ZIP Co de Phone Number [facility] CLIA # [id number] [address] [place] [phone] * (ABNORMAL) CBC WITH DIFFERENTIAL (02/15/2025 6:28 AM CDT) Only the most recent of2 resultswithin the time period is included. WBC 34.1(H) 4.2 - 9.1 K/uL 02/15/2025 6:52 AM [facility] RBC 2.53(L) 4.63 - 6.08 M/uL 02/15/2025 6:52 AM [facility] HEMOGLOBIN 9.0(L) 13.7 - 17.5 g/dL 02/15/2025 6:52 AM [facility] HEMATOCRIT 26.7(L) 40.1 - 51.0 % 02/15/2025 6:52 AM [facility] MCV 105.5(H) 79.0 - 92.2 fL 02/15/2025 6:52 AM [facility] MCH 35.6(H) 25.7 - 32.2 pg 02/15/2025 6:52 AM [facility] MCHC 33.7 32.3 - 36.5 g/dL 02/15/2025 6:52 AM [facility] RDW 17.2(H) 11.0 - 14.5 % 02/15/2025 6:52 AM [facility] RDW-STDEV 66.1(H) 36.9 - 56.9 fL 02/15/2025 6:52 AM [facility] PLATELETS 136 130 - 400 K/uL 02/15/2025 6:52 AM [facility] MPV 9.7(L) 10.0 - 14.8 fL 02/15/2025 6:52 AM [facility] NEUTROPHILS 28(L) 34 - 68 % 02/15/2025 6:52 AM [facility] LYMPHOCYTES 20(L) 22 - 53 % 02/15/2025 6:52 AM [facility] MONOCYTES 52(H) 5 - 12 % 02/15/2025 6:52 AM [facility] EOSINOPHILS 0(L) 1 - 7 % 02/15/2025 6:52 AM CDT [facility] BASOPHILS 0 0 - 1 % 02/15/2025 6:52 AM T [facility] IMMATURE GRANULOCYTES 0 % 02/15/2025 6:52 AM [facility] NEUTROPHIL ABSOLUTE 9.50(H) 1.78 - 5.38 K/uL 02/15/2025 6:52 AM T [facility] LYMPHOCYTE ABSOLUTE 6.83(H) 1.20 - 3.40 K/uL 02/15/2025 6:52 AM T [facility] MONOCYTE ABSOLUTE 17.54(H) 0.30 - 0.82 K/uL 02/15/2025 6:52 AM [facility] EOSINOPHIL ABSOLUTE 0.14 0.04 - 0.54 K/uL 02/15/2025 6:52 AM [facility] BASOPHILS ABSOLUTE 0.07 0.01 - 0.08 K/uL 02/15/2025 6:52 AM [facility] IMMATURE GRANULOCYTES ABSOLUTE 0.00 K/uL 02/15/2025 6:52 AM [facility] Blood BLOOD SPECIMEN / Unknown Collection / Unknown 02/15/2025 6:28 AM CDT 02/15/2025 6:44 AM CDT us Flako Bryant MD HEMATOLOGY ORDERABLES Final Result [id number] [address] [place] [id number] * (ABNORMAL) PROTIME-INR (02/15/2025 6:28 AM CDT) Only the most recent of2 resultswithin the time period is included. PROTIME 15.4(H) 12.1 - 14.3 Seconds 02/15/2025 7:02 AM CDT [facility] INR 1.2(H) 0.9 - 1.1 02/15/2025 7:02 AM T [facility] Blood BLOOD SPECIMEN / Unknown Collection / Unknown 02/15/2025 6:28 AM CDT 02/15/2025 6:54 AM CDT Flako Bryant MD HEMATOLOGY ORDERABLES Final Result [facility] CLIA # [id number] [address] [place] [address] * (ABNORMAL) COMPREHENSIVE METABOLIC PANEL (02/15/2025 6:28 AM CDT) Only the most recent of2 resultswithin the time period is included. SODIUM 138 136 - 145 mmol/L 02/15/2025 6:59 AM [facility] POTASSIUM 3.8 3.5 - 5.1 mmol/L 02/15/2025 6:59 AM [facility] CHLORIDE 102 98 - 107 mmol/L 02/15/2025 6:59 AM [facility] CO2 24 22 - 29 mmol/L 02/15/2025 6:59 AM [facility] CALCIUM 8.8 8.8 - 10.2 mg/dL 02/15/2025 6:59 AM [facility] BUN 16 8 - 23 mg/dL 02/15/2025 6:59 AM [facility] CREATININE 1.13 0.67 - 1.17 mg/dL 02/15/2025 6:59 AM [facility] GLUCOSE 109(H) 74 - 99 mg/dL 02/15/2025 6:59 AM [facility] TOTAL PROTEIN 7.2 6.6 - 8.7 g/dL 02/15/2025 6:59 AM [facility] ALBUMIN 3.7 3.5 - 5.2 g/dL 02/15/2025 6:59 AM [facility] BILIRUBIN TOTAL 0.6 0.0 - 1.2 mg/dL 02/15/2025 6:59 AM [facility] ALKALINE PHOSPHATASE 67 40 - 129 U/L 02/15/2025 6:59 AM [facility] AST 15 0 - 50 U/L 02/15/2025 6:59 AM CDT [facility] ALT 12 0 - 50 U/L 02/15/2025 6:59 AM CDT [facility] GFR >60 >=60 mL/min/1.7 3 sq meter 02/15/2025 6:59 AM CDT [facility] Comment:eGFR calculated with 2020 CKD-EPI equation. Vegetarian diet, extremely high or low muscle mass, and may affect results. Cystatin C with Glomerular Filtration Rate is a suitable alternative for these patients. ANION GAP 12 5 - 20 mmol/L 02/15/2025 6:59 AM CDT [facility] Blood BLOOD SPECIMEN / Unknown Collection / Unknown 02/15/2025 6:28 AM CDT 02/15/2025 6:44 AM CDT Flako Bryant MD CHEMISTRY ORDERABLES Final Result [facility] CLIA # [id number] [address] [place] [address] * TRANSFUSE RED BLOOD CELLS (02/07/2025 1:50 AM CDT) Only the most recent of2 resultswithin the time period is included. Billy Merritt MD BLOOD TRANSFUSION ORDERA BLES Final Result * (ABNORMAL) HEMOGLOBIN AND HEMATOCRIT (02/07/2025 1:20 AM CDT) [facility] HEMOGLOBIN 7.6(L) 13.7 - 17.5 g/dL 02/07/2025 1:29 AM CDT [facility] HEMATOCRIT 22.2(L) 40.1 - 51.0 % 02/07/2025 1:29 AM CDT [facility] Blood BLOOD SPECIMEN / Unknown Collection / Unknown 02/07/2025 1:20 AM CDT 02/07/2025 1:24 AM CDT Billy Merritt MD HEMATOLOGY ORDERABLES Fi nal Result [facility] # [id number] [address] [place] [address] * EKG 12 lead (02/06/2025 6:35 PM CDT) Narrative Billy Merritt MD - 02/06/2025 6:35 PM CDT Billy Merritt MD 02/07/2025 6:47 AM EKG 12 lead Date/Time: 02/06/2025 6:35 PM Performed by: Christina Clark MD Authorized by: Christina Clark MD ECG interpreted by ED Physician in the absence of a raisin separator operator: yes Rate: ECG rate: 74 ECG rate assessment: age appropriate Blocks: AV: Incomplete RBBB. QRSTT: QRSTT changes: No Christina Clark MD ECG ORDERABLES Final Result * CT CHEST ABDOMEN PELVIS W CONT (02/06/2025 6:31 PM CDT) Anatomical Region Laterality Modality Chest Computed Tomogra phy 02/06/2025 6:06 PM CDT Impressions 02/06/2025 6:56 PM CDT IMPRESSION: Please see below. Exam: CT CHEST ABDOMEN PELVIS W CONT Date/Time of Exam: 02/06/2025 6:31 PM Reason For Exam: Metastatic disease evaluation. Diagnosis: See Reason for Exam. Technique: CT of the chest, abdomen, and pelvis was performed following the administration of intravenous contrast. Contrast: 100 mL Isovue-300 intravenously Findings: CHEST: No mediastinal mass, adenopathy, aortic aneurysm, pericardial effusion, pleural effusion, or pneumothorax. Minimal dependent atelectasis in the lungs. No lung consolidation or lung mass. No acute bone lesion. ABDOMEN AND PELVIS: There are several small nonspecific hypodensities within the liver, possibly small cysts. Unremarkable gallbladder, pancreas, spleen, adrenals, kidneys, stomach, small bowel, colon, appendix. Small bladder diverticulum anteriorly on the right. No free fluid. No pathologically enlarged lymph nodes. No aortic aneurysm. No acute bone lesion. IMPRESSION: 1. No acute abnormality identified. No definite findings to suggest metastatic disease within the chest, abdomen, and pelvis. 2. Several small nonspecific hypodensities in the liver, possibly small cysts. Narrative Procedure Note Darin Yung MD - 02/06/2025 IMPRESSION: Please see below. Exam: CT CHEST ABDOMEN PELVIS W CONT Date/Time of Exam: 02/06/2025 6:31 PM Reason For Exam: Metastatic disease evaluation. Diagnosis: See Reason for Exam. Technique: CT of the chest, abdomen, and pelvis was performed following the administration of intravenous contrast. Contrast: 100 mL Isovue-300 intravenously Findings: CHEST: No mediastinal mass, adenopathy, aortic aneurysm, pericardial effusion, pleural effusion, or pneumothorax. Minimal dependent atelectasis in the lungs. No lung consolidation or lung mass. No acute bone lesion. ABDOMEN AND PELVIS: There are several small nonspecific hypodensities within the liver, possibly small cysts. Unremarkable gallbladder, pancreas, spleen, adrenals, kidneys, stomach, small bowel, colon, appendix. Small bladder diverticulum anteriorly on the right. No free fluid. No pathologically enlarged lymph nodes. No aortic aneurysm. No acute bone lesion. IMPRESSION: 1. No acute abnormality identified. No definite findings to suggest metastatic disease within the chest, abdomen, and pelvis. 2. Several small nonspecific hypodensities in the liver, possibly small cysts. us Christina Clark MD CT ORDERABLES Final Result * PREPARE RED BLOOD CELLS (02/06/2025 6:03 PM CDT) CROSSMATCH COMPATIBLE Compatible 02/06/2025 6:52 PM CDT [facility] NUMBER OF UNITS 2 02/06/2025 6:52 PM CDT [facility] PACKED RED BLOOD CELLS [id number] 02/06/2025 6:52 PM CDT [facility] BLOOD BANK PRODUCT [id number] 02/06/2025 6:52 PM CDT [facility] PRBC #1 - DONOR UNIT EXPIRATION 02/27/2025 02/06/2025 6:52 PM CDT [facility] PRBC #1 - DONOR UNIT TYPE A POS 02/06/2025 6:52 PM CDT [facility] PACKED RED BLOOD CELLS #2 [id number] 02/06/2025 6:52 PM CDT [facility] BLOOD BANK PRODUCT #2 [id number] 02/06/2025 6:52 PM CDT [facility] PRBC #2 - DONOR UNIT EXPIRATION 02/27/2025 02/06/2025 6:52 PM CDT [facility] PRBC #2 - DONOR UNIT TYPE A POS 02/06/2025 6:52 PM CDT [facility] POSITIVE AB SCREEN OR HISTORY? No 02/06/2025 6:52 PM CDT [facility] Other, specify 02/06/2025 6: 03 PM CDT 02/06/2025 6:03 PM CDT Christina Clark MD LAB TRANSFUSION ORDERABLES Carmela l Result [facility] CLIA # [id number] [address] [place] [phone] * VERIFICATION BLOOD GROUP (02/06/2025 5:28 PM CDT) ABO/RH TYPE A POS 02/06/2025 6:53 PM CDT [facility] Blood BLOOD SPECIMEN / Unknown Venipuncture / Unknown 02/06/2025 5:28 PM CDT 02/06/2025 6:22 PM CDT us Christnia Clark MD BLOOD BANK ORDERABLES Final Res ult [facility] CLIA # [id number] [address] [place] [phone] * (ABNORMAL) IRON, TIBC, AND PERCENT SATURATION (02/06/2025 5:28 PM CDT) IRON 90 59 - 158 ug/dL 02/07/2025 5:43 PM CDT [facility] TIBC 161(L) 250 - 450 ug/dL 02/07/2025 5:43 PM CDT [facility] IRON % SATURATION 56 15 - 60 % 02/07/2025 5:43 PM CDT [facility] Blood BLOOD SPECIMEN / Unknown Venipuncture / Unknown 02/06/2025 5:28 PM CDT 02/06/2025 6:17 PM CDT us Christina Clark MD CHEMISTRY ORDERABLES Final Resu lt Performing Organization Address City/[facility]/ZIP Co de Phone Number [facility] CLIA # [id number] [address] [address] * (ABNORMAL) FERRITIN (02/06/2025 5:28 PM CDT) FERRITIN 1,040.0(H) 30.0 - 400.0 ng/mL 02/07/2025 5:43 PM CDT [facility] Blood BLOOD SPECIMEN / Unknown Venipuncture / Unknown 02/06/2025 5:28 PM CDT 02/06/2025 6:17 PM CDT us Christina Clark MD CHEMISTRY ORDERABLES Final Resu lt Performing Organization Address [facility]/ZIP Co de Phone Number [facility] CLIA # [id number] [address] [address] * VITAMIN B12 LEVEL (02/06/2025 5:28 PM CDT) VITAMIN B12 904 211 - 946 pg/mL 02/07/2025 5:56 PM CDT [facility] Blood BLOOD SPECIMEN / Unknown Venipuncture / Unknown 02/06/2025 5:28 PM CDT 02/06/2025 6:17 PM CDT us Christina Clark MD CHEMISTRY ORDERABLES Final Resu lt Performing Organization Address City/[facility]/ZIP Co de Phone Number [facility] CLIA # [id number] [address] [facility] [place] [address] * PTT (02/06/2025 5:25 PM CDT) PTT 30.3 25.1 - 35.4 seconds 02/06/2025 5:52 PM CDT [facility] Blood BLOOD SPECIMEN / Unknown Venipuncture / Unknown 02/06/2025 5:25 PM CDT 02/06/2025 5:36 PM CDT us Christina Clark MD HEMATOLOGY ORDERABLES Final Res ult Performing Organization Address City/[facility]/ZIP Co de Phone Number [facility] CLIA # [id number] [address] [place] [id number] * TYPE AND SCREEN (02/06/2025 5:25 PM CDT) Pathologist [facility] ABO/RH TYPE A POS 02/06/2025 6:30 PM CDT [facility] ANTIBODY SCREEN Negative 02/06/2025 6:30 PM CDT [facility] Blood BLOOD SPECIMEN / Unknown Venipuncture / Unknown 02/06/2025 5:25 PM CDT 02/06/2025 5:36 PM CDT us Christina Clark MD BLOOD BANK ORDERABLES Final Res ult Performing Organization Address City/[facility]/ZIP Co de Phone Number [facility] CLIA # [id number] [address] [place] [id number] * (ABNORMAL) C-REACTIVE PROTEIN (02/06/2025 5:25 PM CDT) CRP 41.3(H) <5.0 mg/L 02/06/2025 6:03 PM CDT [facility] Blood BLOOD SPECIMEN / Unknown Venipuncture / Unknown 02/06/2025 5:25 PM CDT 02/06/2025 5:36 PM CDT us Christina Clark MD CHEMISTRY ORDERABLES Final Resu lt [facility] [facility] CLIA # [id number] [address] [place] [id number] * (ABNORMAL) BRAIN NATRIURETIC PEPTIDE, BNP OR PROBNP (02/06/2025 5:25 PM CDT) PROBNP, N TERMINAL 260(H) 0 - 125 pg/mL 02/06/2025 6:03 PM CDT [facility] Comment: INTERPRETIVE COMMENT based on diagnosis: Diagnostic NT pro-BNP cutoffs for Heart Failure in the absence of renal failure is suggested for the following ranges <75 years: <125 pg/mL >=75 years: <450 pg/mL Exclusionary rule out cut-point for Acute Decompensated Heart Failure(ADHF) All ages: <300 pg/mL Diagnostic NT pro-BNP cutoffs for Acute Decompensated Heart Failure(ADHF) in the absence of renal failure is suggested for the following ages <50 years: > 450 pg/mL 50-75 years: > 900 pg/mL >75 years: >1800 pg/mL Blood BLOOD SPECIMEN / Unknown Venipuncture / Unknown 02/06/2025 5:25 PM CDT 02/06/2025 5:36 PM CDT us Christina Clark MD CHEMISTRY ORDERABLES Final Resu lt [facility] CLIA # [id number] [address] [place] [address] [id number] from Last 3 Months Insurance BCBS MEDICARE HMO Care Teams Coffee Roaster Helper Relationship Specialty Start Date End Date Mayelin Alfaro MD [address] [phone] PCP - General Family Practice 07/14/17
--- OUTSIDE RECORDS SUMMARY | 2025-02-22 12:26 | XMS_ITS | Clinical Summary ---
Author Organization [facility] Address [address] [place] [address] Care Team Providers Care Vehicle Mechanic Name Role Phone Mayelin Alfaro MD Primary Care Provider [phone] Allergies No known active allergies Medications clonazePAM (KlonoPIN) 1 mg tabletIndication s:MIGUEL A (generalized anxiety disorder) Take 1 Tablet (1 mg) by mouth 2 times daily as needed for Anxiety. 60 Tablet 5 07/15/2017 Active meloxicam (MOBIC) 15 mg tablet Take 1 Tablet (15 mg) by mouth daily. 30 Tablet 1 08/25/2017 Active Active Problems Problem Noted Date Diagnosed Date Osteoarthritis of multiple joints 07/15/2017 Chronic pain syndrome 07/15/2017 MIGUEL A (generalized anxiety disorder) 07/15/2017 Internal hemorrhoids 03/04/2016 Resolved Problems Problem Noted Date Diagnosed Date Resolved Date Screening for colon cancer 03/04/2016 1 Family History Medical History Relation Name Comments Drug Abuse Brother at age 38 Alzheimer's Disease Father COPD Mother Diabetes Mother Sudden Sister at age 42 Suicide Relation Name Status Comments Brother Father Mother Sister Social History Tobacco Use Types Packs/Day Years Used Date Smoking Tobacco: Never Smokeless Tobacco: Former Alcohol Use Standard Drinks/Week Comments Yes 0 (1 standard drink = 0.6 oz pur e alcohol) case a beer per week Sex and Gender Information Value Date Recorded Sex Assigned at Not on file Legal Sex Male 11:25 AM CDT Gender Identity Not on file Sexual Orientation Not on file Last Filed Vital Signs Vital Sign Reading Time Taken Comments Blood Pressure 113/76 08/25/2017 10:20 AM CDT Pulse 61 08/25/2017 10:20 AM CDT Temperature 36.4 C (97.6 F) 08/05/2017 11:21 AM CDT Respiratory Rate 20 08/05/2017 11:21 AM CDT Oxygen Saturation 93% 08/05/2017 11:21 AM CDT Inhaled Oxygen Concentration - - Weight 78.9 kg (174 lb) 08/25/2017 10:20 AM CDT Height 182.9 cm (6') 08/25/2017 10:20 AM CDT Body Mass Index 23.6 08/25/2017 10:20 AM CDT Plan of Treatment Health Maintenance Due Date Last Done Comments DTAP/TDAP/TD VACCINES (1 - Tdap) 02/27/1975 FIT-DNA Q 3 years 02/27/2001 FIT/FOBT Q 1 year 02/27/2001 Flex Sig/CT Colonography Q 5 years 02/27/2001 PNEUMOCOCCAL VACCINE 50+ YEARS (1 of 1 - PCV) 02/28/20 06 ZOSTER VACCINE (1 of 2) 02/27/2006 Preventative Visit- Commercial 05/11/2024 INFLUENZA VACCINE (#1) 2024 COLORECTAL SCREENING 03/04/2026 03/04/2016 Colorectal Cancer Screening 03/04/2026 RSV VACCINE (60+ or ) (1 - 1-dose 75+ series) 02/27/[address] [place] [address] Care Teams Vehicle Mechanic Relationship Specialty Start Date End Date Mayelin Alfaro MD [address] [phone] PCP - General Family Practice 07/14/17
--- OUTSIDE RECORDS SUMMARY | 2025-02-22 12:26 | XMS_ITS | Encounter Summary ---
Author Organization [facility] Address [address] [place] [address] Care Team Providers Care Cost Specialist Name Role Phone Mayelin Alfaro MD Primary Care Provider [phone] Encounter Details Date Type Department Care Team [...] worry about transportation for future doctor visits, continuous pickling line pickler helper medication, etc.? 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
--- OUTSIDE RECORDS SUMMARY | 2025-02-22 12:26 | XMS_ITS | Encounter Summary ---
Author Organization [facility] Address [address] [place] [address] Care Team Providers Care Reading Efficiency Course Director Name Role Phone Mayelin Alfaro MD Primary Care Provider [phone] Encounter Details Date Type Department Care Team (Late st Contact Info) Description 02/14/2025 External Device Data STL ABSTRACTION Provider, [...] worry about transportation for future doctor visits, burr picker medication, etc.? No 2024 Housing Stability [...] on file Legal Sex Male 1:[address] JUDGE Gender Identity Not on file Sexual Orientation Not on file documented as of this encounter Plan of Treatment Not on file documented as of this encounter Visit Diagnoses Not on filedocumented in this encounter Care Teams Reading Efficiency Course Director Relationship Specialty Start Date End Date Mayelin Alfaro MD [address] [phone] PCP - General Family Practice 07/14/17 documented as of this encounter
--- OUTSIDE RECORDS SUMMARY | 2025-02-22 12:26 | XMS_ITS | Encounter Summary ---
Author Organization [facility] Address [address] [place] [address] Care Team Providers Care Bracelet Former Name Role Phone Mayelin Alfaro MD Primary Care Provider [phone] Encounter Details Date Type Department Care Team (Late st Contact Info) Description 07/14/[address] [facility] [address] [place] [address] Claudia Chester, TECHNICIAN HELPER INSTRUMENT [address] [place] [address] Left hand pain Social History Tobacco Use Types Packs/Day Years [...] on file documented as of this encounter Results * XR HAND 3+ VW LEFT (07/14/2017 11:09 AM ACOUSTIC SENSOR OPERATOR) Anatomical Region Laterality Modality Wrist / Hand Computed Radiogr aphy 07/14/2017 11:0 9 AM ACOUSTIC SENSOR OPERATOR Impressions 07/14/2017 11:43 AM ACOUSTIC SENSOR OPERATOR IMPRESSION: See below. Exam: XR HAND 3+ VW LEFT Date/Time of Exam: 07/14/2017 11:09 AM Reason For Exam: Left hand pain. Findings: There is a small ossific density within the soft tissues adjacent to the distal phalanx of the middle digit. This is likely chronic in nature. There is no acute fracture or dislocation identified. No focal bone lesion identified. [id number] Narrative Procedure Note Darin Yung MD - 07/14/2017 IMPRESSION: See below. Exam: XR HAND 3+ VW LEFT Date/Time of Exam: 07/14/2017 11:09 AM Reason For Exam: Left hand pain. Findings: There is a small ossific density within the soft tissues adjacent to the distal phalanx of the middle digit. This is likely chronic in nature. There is no acute fracture or dislocation identified. No focal bone lesion identified. [id number] Claudia Chester TECHNICIAN HELPER INSTRUMENT DIAGNOSTIC IMAGING ORDERABL ES Final Result documented in this encounter Visit Diagnoses Diagnosis Left hand pain Pain in limb Left hand pain Pain in limb documented in this encounter Care Teams Bracelet Former Relationship Specialty Start Date End Date Mayelin Alfaro MD [address] [phone] PCP - General Family Practice 07/14/17 documented as of this encounter
[2025-02-22 12:34] VITALS: BP 121/68; PULSE 77; TEMP 36.9; O2SAT 97
[2025-02-22 13:03] LABS: Hematocrit 22.8 % (37-53); Hemoglobin 7.30 g/dL (11.27-16.99); Mean Corpuscular HGB Conc 32.0 g/dL (30-55); Mean Corpuscular Hemoglobin 36.3 pg (27-33); Mean Corpuscular Volume 113.4 fl (82-101); Nucleated Red Blood Cells % 0.4 %; Platelet Count 125 10^3/cmm (157-399); Red Blood Count 2.01 10^6/uL (3.85-5.65)
[2025-02-22 13:16] LABS: Alanine Aminotransferase 11 U/L (0-41); Albumin Level 3.8 g/dL (3.5-5.2); Alkaline Phosphatase 64 U/L (40-130); Anion Gap 16.8 (5-19); Aspartate Amino Transferase 11 U/L (0-40); Blood Urea Nitrogen 12 mg/dL (8-23); Calcium 8.5 mg/dL (8.5-10.5); Carbon Dioxide 24 mmol/L (22-29); Chloride 98 mmol/L (98-107); Creatinine Clr Calc Pharmacy 69.8727; Globulin 3.3 g/dL (1.3-4.6); Glucose 145 mg/dL (65-115); Magnesium 2.3 mg/dL (1.7-2.3); Osmolality Calculated 282 mOsm/kg (285-295); Potassium 3.8 mmol/L (3.5-5.1); Sodium 135 mmol/L (136-145); Total Protein 7.1 g/dL (6.6-8.7)
[2025-02-22 13:32] VITALS: PULSE 80; O2SAT 96
[2025-02-22 13:36] LABS: Slide Review Slide Review Perform; White Blood Count 32.83 10^3/uL (3.29-11.43)
--- NOTE | 2025-02-22 14:03 | W.ED.RECABL ---
HPI - Recheck/Abnormal Lab/Rx General: Chief Complaint: Recheck/Abnormal Lab/Rx Stated Complaint: Adnormal Labs Time Seen by Provider: 02/22/25 12:53 History of Present Illness: 69-year-old male who is direct to the emergency room by oncology. He been being followed for what initially was a microcytic anemia has now become a macrocytic anemia rate routine labs today he has a leukocytosis with significant number of blasts he has thrombocytopenia as well. Will hide feels fine he denies any fever sweats chills no nausea vomiting diarrhea no chest pain or myalgias. Related Data Home Medications ?Medication ?Instructions ?Recorded ?Confirmed lovastatin 40 mg tablet 40 mg PO QPM 06/14/24 02/22/25 clobetasol 0.05 % topical cream See Rx Instructions .Route .COMPLEX 02/22/25 02/22/25 levofloxacin 500 mg tablet 500 mg PO DAILY 02/22/25 02/22/25 omeprazole 40 mg capsule,delayed 40 mg PO DAILY 02/22/25 02/22/25 release Previous Rx's ?Medication ?Instructions ?Recorded fluticasone propionate 50 2 spray intranasal DAILY PRN 10/10/24 mcg/actuation nasal allergy symptoms #16 grams spray,suspension alprazolam 1 mg tablet 1 mg PO DAILY PRN anxiety 90 days 01/25/25 #30 tabs Allergies Allergy/AdvReac Type Severity Reaction Status Date / Time No Known Allergies Allergy Verified 02/22/25 12:37 Review of Systems Const: Denies: fever(s) or chills Card: Denies: chest pain Resp: Denies: dyspnea GI: Denies: abdominal pain : Denies: dysuria, urinary frequency or urinary urgency Musc: Denies: neck pain or back pain Skin/Breast: Denies: rash PFSH ED PFSH: Medical History (Updated 02/23/25 @ 07:08 by Bari Jeter DO) Urinary frequency Mixed hyperlipidemia Benign neoplasm of unknown origin Mole Eczema Facial lesion Environmental and seasonal allergies Other age-related cataract of both eyes Anxiety Encounter to establish care Prostate cancer screening Vitamin D deficiency Surgical History H/O colonoscopy History of melanoma excision Social History Smoking and tobacco/nicotine status: former use of tobacco/nicotine Physical Exam Const: COMMON NORMALS: no acute distress GENERAL APPEARANCE: cooperative and comfortable ORIENTATION/CONSCIOUSNESS: Yes awake, Yes oriented to person, Yes oriented to place and Yes oriented to time HENMT: COMMON NORMALS: normocephalic, atraumatic and hearing grossly normal bilaterally HEAD & SCALP: normocephalic and atraumatic Resp: COMMON NORMALS: normal respiratory effort, No retractions, No use of accessory muscles and clear to auscultation bilaterally AUSCULTATION: clear to auscultation bilaterally Cardio: COMMON NORMALS: regular rate, regular rhythm and No murmurs present (Cardio) RATE: regular rate RHYTHM: regular rhythm GI: COMMON NORMALS: Soft to palpation and No hepatosplenomegaly present AUSCULTATION: Yes normoactive bowel sounds PALPATION: Yes Soft to palpation, No Tenderness to palpation present (GI), No Guarding due to palpation present (GI) and Yes No hepatosplenomegaly present Extremity: COMMON NORMALS: normal to inspection, capillary refill normal, no clubbing, cyanosis or edema, no calf tenderness and no pedal edema Neuro: SENSORIUM/ORIENTATION: Yes oriented to person, Yes oriented to place and Yes oriented to time Skin: COMMON NORMALS: no rashes or lesions noted GENERAL SKIN EXAM: no rashes or lesions noted Course Vital Signs: Vital signs: Vital Signs Temperature 98.4 F 02/22/25 12:34 Pulse Rate 78 02/22/25 15:12 Blood Pressure 97/55 02/22/25 16:39 Pulse Oximetry 97 02/22/25 15:12 Oxygen Delivery Me thod Room Air 02/22/25 15:12 MDM - Recheck/Abnormal Lab/Rx Medical Decision Making Patient is being followed by hematology for anemia and now has leukocytosis with developing thrombocytopenia and macrocytic anemia. 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 Discussed with Dr. Martinez. He recommends transfer to [place] at [facility]. I contacted [facility] and discussed with oncology. LDH was normal uric acid not significantly elevated fibrinogen is elevated. Patient is stable at this time is been given IV fluids. They have excepted as an emergent transfer. Family wishes to drive himself his vital signs have been stable he was given the appropriate paperwork by staff and directed to proceed directly to [facility]. Medical Records I reviewed the patient's medical records. Lab Data I reviewed the patient's lab results. 02/22/25 12:45 02/22/25 12:45 Radiology Impressions Chest X-Ray 02/22/25 14:37 IMPRESSION: No acute chest abnormality. Laboratory Results WBC 32.83 10^3/uL (3.29-11.43) H* 02/22/25 12:45 RBC 2.01 10^6/uL (3.85-5.65) L 02/22/25 12:45 Hgb 7.30 g/dL (11.27-16.99) L 02/22/25 12:45 Hct 22.8 % (37-53) L 02/22/25 12:45 MCV 113.4 fl (82-101) H 02/22/25 12:45 MCH 36.3 pg (27-33) H 02/22/25 12:45 MCHC 32.0 g/dL (30-55) 02/22/25 12:45 RDW 17.9 % (12.1-15.1) H 02/22/25 12:45 Plt Count 125 10^3/cmm (157-399) L 02/22/25 12:45 MPV 9.4 fL (7.4-10.4) 02/22/25 12:45 Neut % (Auto) 34.4 % 02/22/25 12:45 Lymph % (Auto) 16.5 % 02/22/25 12:45 Conway % (Auto) 48.9 % 02/22/25 12:45 Eos % (Auto) 0.0 % 02/22/25 12:45 Baso % (Auto) 0.2 % 02/22/25 12:45 Neut # (Auto) 11.30 10^3/uL (1.8-7.7) H 02/22/25 12:45 Lymph # (Auto) 5.4 10^3/uL (0.8-4.8) H 02/22/25 12:45 Conway # (Auto) 16.1 10^3/uL (0.2-0.9) H 02/22/25 12:45 Eos # (Auto) 0.0 10^3/uL (0.0-0.8) 02/22/25 12:45 Baso # (Auto) 0.1 10^3/uL (0.0-0.1) 02/22/25 12:45 Nucleated RBC % (auto) 0.4 % 02/22/25 12:45 Nucleated RBCs # 0.1 /100WBC 02/22/25 12:45 Fibrinogen 636 mg/dL (174-498) H 02/22/25 12:45 Sodium 135 mmol/L (136-145) L 02/22/25 12:45 Potassium 3.8 mmol/L (3.5-5.1) 02/22/25 12:45 Chloride 98 mmol/L (98-107) 02/22/25 12:45 Carbon Dioxide 24 mmol/L (22-29) 02/22/25 12:45 Anion Gap 16.8 (5-19) 02/22/25 12:45 BUN 12 mg/dL (8-23) 02/22/25 12:45 Creatinine 1.1 mg/dL (0.7-1.2) 02/22/25 12:45 GFR Calculation 66.6 mL/min (90-130) L 02/22/25 12:45 Glucose 145 mg/dL (65-115) H 02/22/25 12:45 Calculated Osmolality 282 mOsm/kg (285-295) L 02/22/25 12:45 Uric Acid 6.7 mg/dL (3.4-7.0) 02/22/25 12:45 Calcium 8.5 mg/dL (8.5-10.5) 02/22/25 12:45 Magnesium 2.3 mg/dL (1.7-2.3) 02/22/25 12:45 Total Bilirubin 0.3 mg/dL (0.15-1.2) 02/22/25 12:45 AST 11 U/L (0-40) 02/22/25 12:45 ALT 11 U/L (0-41) 02/22/25 12:45 Alkaline Phosphatase 64 U/L (40-130) 02/22/25 12:45 Lactate Dehydrogenase 210 U/L (135-225) 02/22/25 12:45 Total Protein 7.1 g/dL (6.6-8.7) 02/22/25 12:45 Albumin 3.8 g/dL (3.5-5.2) 02/22/25 12:45 Globulin 3.3 g/dL (1.3-4.6) 02/22/25 12:45 All radiology interpretation(s) finalized by discharge Discharge Plan Discharge Patient Disposition: Transfer to ED Clinical Impression: Leukocytosis, Cytopenia, Anemia, macrocytic Condition: Stable Prescriptions: No Action lovastatin 40 mg tablet 40 mg PO QPM Patient Comments: patient has not taken in over 4 weeks alprazolam 1 mg tablet 1 mg PO DAILY PRN (Reason: anxiety) 90 Days Qty: 30 0RF omeprazole 40 mg capsule,delayed release(DR/EC) 40 mg PO DAILY levofloxacin 500 mg tablet 500 mg PO DAILY fluticasone propionate 50 mcg/actuation spray,suspension 2 spray intranasal DAILY PRN (Reason: allergy symptoms) Qty: 16 2RF Rx Instructions: administer into each nostril clobetasol 0.05 % cream See Rx Instructions .ROUTE .COMPLEX Rx Instructions: APPLY TWICE DAILY TO RED, ITCHY AREAS NEEDED. USE NO MORE THAN 2 WEEKS PER MONTH. NOT FOR USE ON FACE, GROIN OR SKIN FOLDS Referrals: Stacey Lundy NP [Primary Care Provider, Nurse Practitioner] Print Language: Serbian Coding Level of Care Code ED Cloud Systems Administrator for Lauro Flores
[2025-02-22 14:27] VITALS: BP 110/58; PULSE 81; O2SAT 96
--- NOTE | 2025-02-22 14:37 | XR_ITS ---
WS: [id number] XR chest 1V portable [id number] REASON FOR EXAM: leukocytosis FINDINGS: Mild ectasia and tortuosity of the ascending aorta, arch, and thoracic aorta. The heart size is within normal limits. Calcified granulomatous disease bilaterally. Small area of atelectasis in the left costophrenic angle. No other significant pulmonary parenchymal or pleural abnormality. Multiple old healed left rib fractures. Mild degenerative spondylosis in the mid and lower thoracic spine. Calcification in the left humeral shaft which may indicate presence of benign enchondroma. XR/XR chest 1V portable [id number] IMPRESSION: No acute chest abnormality.
[2025-02-22 15:12] VITALS: BP 106/60; PULSE 78; O2SAT 97
[2025-02-22 15:17] LABS: Fibrinogen 636 mg/dL (174-498); Uric Acid 6.7 mg/dL (3.4-7.0)
[2025-02-22 16:39] VITALS: BP 97/55
== END 2025-02-22 17:32 ==
PROVIDERS: Emergency Provider Family Medicine; PCP Nurse Practitioner Family
DX: D72.829 Elevated white blood cell count, unspecified (principal); D75.9 Disease of blood and blood-forming organs, unspecified; D50.9 Iron deficiency anemia, unspecified; Z87.891 Personal history of nicotine dependence; E78.2 Mixed hyperlipidemia; Z85.828 Personal history of other malignant neoplasm of skin
CPT/HCPCS: 36415; 71045; 80053; 83615; 83735; 84550; 85025; 85384; 99284; J9999

== ENCOUNTER 2025-03-10 09:30 | Oncology outpatient (recurring) (ONCR) | payer MEDICARE, SELFPAY ==
[2025-02-22 10:55] LABS: Hematocrit 24.9 % (37-53); Hemoglobin 8.00 g/dL (11.27-16.99); Mean Corpuscular HGB Conc 32.1 g/dL (30-55); Mean Corpuscular Hemoglobin 36.4 pg (27-33); Mean Corpuscular Volume 113.2 fl (82-101); Platelet Count 135 10^3/cmm (157-399); Red Blood Count 2.20 10^6/uL (3.85-5.65)
[2025-02-22 11:10] LABS: INR 1.09 (0.8-1.2); Prothrombin Time 14.90 SECONDS (12.1-14.9)
[2025-02-22 11:13] LABS: White Blood Count 39.82 10^3/uL (3.29-11.43)
[2025-02-22 11:16] LABS: Alanine Aminotransferase 12 U/L (0-41); Albumin Level 3.9 g/dL (3.5-5.2); Alkaline Phosphatase 67 U/L (40-130); Anion Gap 16.1 (5-19); Aspartate Amino Transferase 12 U/L (0-40); Blood Urea Nitrogen 12 mg/dL (8-23); Calcium 8.8 mg/dL (8.5-10.5); Carbon Dioxide 25 mmol/L (22-29); Chloride 99 mmol/L (98-107); Creatinine Clr Calc Pharmacy 70.0378; Globulin 4.0 g/dL (1.3-4.6); Glucose 101 mg/dL (65-115); Iron 84 ug/dL (59-158); Osmolality Calculated 282 mOsm/kg (285-295); Potassium 4.1 mmol/L (3.5-5.1); Sodium 136 mmol/L (136-145); Total Iron Binding Capacity 152 mcg/dl; Total Protein 7.9 g/dL (6.6-8.7); Unsaturated Iron Binding 68 ug/dL (112-347)
[2025-02-22 11:32] LABS: Ferritin 2460 ng/mL (30-400)
[2025-02-22 11:45] LABS: Slide Review Slide Review Perform
[2025-02-22 11:47] LABS: Absolute Segmented Neutrophil 12.7 10/cmm (1.6-7.1); Atypical Lymphs 17.0 % (0-5); Band Neutrophils Absolute 2.0 10^3/cmm (0.0-1.2); Total Cells Counted 100 (0-100)
[2025-02-22 11:49] LABS: Pathology Refferal Yes
[2025-03-10 10:09] LABS: Hematocrit 25.1 % (37-53); Hemoglobin 8.30 g/dL (11.27-16.99); Mean Corpuscular HGB Conc 33.1 g/dL (30-55); Mean Corpuscular Hemoglobin 32.7 pg (27-33); Mean Corpuscular Volume 98.8 fl (82-101); Nucleated Red Blood Cells % 0 %; Platelet Count 44 10^3/cmm (157-399); Red Blood Count 2.54 10^6/uL (3.85-5.65); White Blood Count 2.89 10^3/uL (3.29-11.43)
[2025-03-10 10:26] LABS: Alanine Aminotransferase 14 U/L (0-41); Albumin Level 3.8 g/dL (3.5-5.2); Alkaline Phosphatase 62 U/L (40-130); Anion Gap 14.9 (5-19); Aspartate Amino Transferase 11 U/L (0-40); Blood Urea Nitrogen 15 mg/dL (8-23); Calcium 8.7 mg/dL (8.5-10.5); Carbon Dioxide 27 mmol/L (22-29); Chloride 97 mmol/L (98-107); Creatinine Clr Calc Pharmacy 94.9645; Globulin 3.6 g/dL (1.3-4.6); Glucose 119 mg/dL (65-115); Osmolality Calculated 282 mOsm/kg (285-295); Potassium 3.9 mmol/L (3.5-5.1); Sodium 135 mmol/L (136-145); Total Protein 7.4 g/dL (6.6-8.7)
--- NOTE | 2025-03-10 10:41 | PC.NURSE ---
Called pt's son per pt request and let him know that he would not be getting a blood transfusion today but that we did need him to come in on Thursday to be drawn again. Asked pt to be here at 7:30am but he said the earliest would be 9am.
== END 2025-03-10 23:59 | disposition home or self-care (01) ==
PROVIDERS: Internal Medicine Medical Oncology; PCP Nurse Practitioner Family; Visit Provider Internal Medicine
DX: D46.9 Myelodysplastic syndrome, unspecified; Z53.9 Procedure and treatment not carried out, unspecified reason
CPT/HCPCS: 36415; 80053; 80503; 82728; 83010; 83540; 83550; 83615; 85007; 85025; 85045; 85610; 86850; 86900; 99204

== ENCOUNTER 2025-03-13 08:38 | Oncology outpatient (recurring) (ONCR) | payer MEDICARE, SELFPAY ==
[2025-03-13] VITALS (7 sets, daily range): BP systolic 106–122; BP diastolic 54–83; PULSE 88–97; RESP 17; TEMP 37.8–38.6; O2SAT 94–97
[2025-03-13 09:14] LABS: Hematocrit 21.5 % (37-53); Hemoglobin 7.10 g/dL (11.27-16.99); Mean Corpuscular HGB Conc 33.0 g/dL (30-55); Mean Corpuscular Hemoglobin 32.9 pg (27-33); Mean Corpuscular Volume 99.5 fl (82-101); Nucleated Red Blood Cells % 0 %; Platelet Count 32 10^3/cmm (157-399); Red Blood Count 2.16 10^6/uL (3.85-5.65); White Blood Count 1.16 10^3/uL (3.29-11.43)
--- NOTE | 2025-03-13 09:48 | PC.NURSE ---
Patient came in for Type and screen and possible transfusion per orders of [facility], Dr. Coburn orders. The order states anything less that 7.0 Hgb will require two units of RBC's. Patient's Hgb is a 7.1. I called and spoke with Dr. Coburn's nurse who gave us the verbal order to tranfuse two units of RBC's.
[2025-03-13 09:55] LABS: Alanine Aminotransferase 13 U/L (0-41); Albumin Level 3.6 g/dL (3.5-5.2); Alkaline Phosphatase 57 U/L (40-130); Anion Gap 13.5 (5-19); Aspartate Amino Transferase 11 U/L (0-40); Blood Urea Nitrogen 17 mg/dL (8-23); Calcium 8.4 mg/dL (8.5-10.5); Carbon Dioxide 26 mmol/L (22-29); Chloride 100 mmol/L (98-107); Globulin 3.1 g/dL (1.3-4.6); Glucose 112 mg/dL (65-115); Osmolality Calculated 284 mOsm/kg (285-295); Potassium 3.5 mmol/L (3.5-5.1); Sodium 136 mmol/L (136-145); Total Protein 6.7 g/dL (6.6-8.7)
[2025-03-13 10:31] LABS: Slide Review Slide Review Perform
--- NOTE | 2025-03-13 15:02 | PC.NURSE ---
Patient presented to the infusion clinic for a blood transfusion per Dr. Coburn's orders. (See previous note). Patient presented to the infusion services department with an elevated temperature of 100.2. Patient was within Dr. Coburn's transfusion parameters. The first unit of blood transfused without issue. Patient's temperature fluctuated during the transfusion. Once the second unit of blood was started, patient's temperature elevated to 101.[address] Coburn's transfusion parameters. Dr. Coburn's office was then contacted again. I spoke with her nurse, Rhona, who had been made aware by the patient's significant other that he had stopped taking his oral chemotherapy medications and post-procedure antibiotics on 03/08/2025 and has been having fevers and excessive shaking since 03/11/2025. Rhona advised Mr. Garcia to seek emergency medical attention for infection. Mr. Garcia was originally refusing emergency medical attention. Mr. Garcia wanted to continue the blood transfusion with infusion services. After speaking with his significant other, Mr. Garcia agreed to stopping the blood transfusion and going to the Emergency Department for possible infection and growing medical concerns from stopping his medication. Patient was transferred to the Emergency Department triage office via wheelchair by myself. I stayed with patient through his Emergency Department registration and to his intake triage due to my concern of leaving him as his nurse in infusion services and due to being accessed with a 20g intravenous line in the right forearm. His significant other was also present. He is scheduled again with the infusion clinic for , 03/16/2025 for another possible transfusion via orders from Dr. Coburn.
== END 2025-04-09 23:59 | disposition home or self-care (01) ==
PROVIDERS: Internal Medicine Medical Oncology; PCP Nurse Practitioner Family; Visit Provider Internal Medicine
DX: Z12.5 Encounter for screening for malignant neoplasm of prostate (principal); D46.9 Myelodysplastic syndrome, unspecified; Z79.899 Other long term (current) drug therapy
CPT/HCPCS: 36430; 80053; 83615; 85025; 86850; 86900; 86920; J7050; P9016

== ENCOUNTER 2025-03-13 14:41 | Inpatient (IN) | payer MEDICARE, SELFPAY ==
[2025-03-13 14:47] VITALS: BP 123/76; PULSE 88; TEMP 37.9; O2SAT 96; BMI 21.8
--- NOTE | 2025-03-13 15:00 | ECG_ITS ---
[facility] 2025-[facility]13 Pat Name: Srini Garcia Department: Room: Gender: Male Ware Dresser: : 1955 Requested By: Jody Bailey Order Number: [id number] Satya MD: Kobe Angeles M.D. Measurements Intervals [place] Rate: 94 P: 52 GA: 151 QRS: 7 QRSD: 95 T: 48 QT: 332 QTc: 416 Interpretive Statements SINUS RHYTHM POSSIBLE LEFT ATRIAL ENLARGEMENT [-0.1mV P-WAVE IN V1/V2] INCOMPLETE RIGHT BUNDLE BRANCH BLOCK [90+ ms QRS DURATION, TERMINAL R IN V1/V2, 40+ ms S IN I/aVL/V4/V5/V6] NONSPECIFIC T-WAVE ABNORMALITY No previous ECG available for comparison Electronically Signed On 03-14-2025 22:05:52 INDUSTRIAL PSYCHOLOGY PROFESSOR by Kobe Angeles M.D. [id number]
--- OUTSIDE RECORDS SUMMARY | 2025-03-13 15:06 | XMS_ITS | Encounter Summary ---
Author Organization [facility] Address 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
--- OUTSIDE RECORDS SUMMARY | 2025-03-13 15:06 | XMS_ITS | Encounter Summary ---
Author Organization [facility] Address [address] [place] [address] Care Team Providers Care Lmft Name Role Phone Mayelin Alfaro MD Primary Care Provider [phone] Encounter Details Date Type Department Care Team (Late st Contact Info) Description 07/14/2017 Ancillary Orders [facility] [address] [place] [address] Claudia Chester, DIRECTOR LEARNING SERVICES [address] [place] [address] Left hand pain Social History [...] HAND 3+ VW LEFT (07/14/2017 11:09 AM RETAIL BRANCH MANAGER) Anatomical Region Laterality Modality Wrist / Hand Computed Radiogr aphy 07/14/2017 11:0 9 AM RETAIL BRANCH MANAGER Impressions 07/14/2017 11:43 AM RETAIL BRANCH MANAGER IMPRESSION: See below. Exam: XR HAND 3+ VW LEFT Date/Time of Exam: 07/14/2017 11:09 AM Reason For Exam: Left hand pain. Findings: There is a small ossific density within the soft tissues adjacent to the distal phalanx of the middle digit. This is likely chronic in nature. There is no acute fracture or dislocation identified. No focal bone lesion identified. [id number] Narrative Procedure Note Darin Yung MD - [...] dislocation identified. No focal bone lesion identified. [id number] Claudia Chester DIRECTOR LEARNING SERVICES DIAGNOSTIC IMAGING ORDERABL ES Final Result documented in this encounter Visit Diagnoses Diagnosis Left hand pain Pain in limb Left hand pain Pain in limb documented in this encounter Care Teams Lmft Relationship Specialty Start Date End Date Mayelin Alfaro MD [address] [phone] PCP - General Family Practice 07/14/17 documented as of this encounter
--- OUTSIDE RECORDS SUMMARY | 2025-03-13 15:06 | XMS_ITS | Encounter Summary ---
Author Organization [facility] Address [address] [place] [address] Care Team Providers Care Family Living Educator Name Role Phone Mayelin Alfaro MD Primary Care Provider [phone] Encounter Details Date Type Department Care Team (Late st Contact Info) Description 02/17/2025 Results Follow-Up [facility] Emergency Medicine [address] [address] Vanessa Salguero, DIORAMA MODEL MAKER [address] [address] BLOOD CULTURE, BLOOD CULTURE Social [...] worry about transportation for future doctor visits, shrimp picker medication, etc.? 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
--- OUTSIDE RECORDS SUMMARY | 2025-03-13 15:06 | XMS_ITS | Clinical Summary ---
Author Organization [facility] Address [address] [place] [address] Care Team Providers Care Power Ballast Machine Operator Name Role Phone Mayelin Alfaro MD Primary Care Provider [phone] Allergies No known active allergies Medications clonazePAM [...] (1 - 1-dose 75+ series) 02/27/[address] [place] [address] [address] Care Teams Power Ballast Machine Operator Relationship Specialty Start Date End Date Mayelin Alfaro MD [address] [address] PCP - General Family Practice 07/14/17
--- OUTSIDE RECORDS SUMMARY | 2025-03-13 15:06 | XMS_ITS | Clinical Summary ---
Author Organization [facility] Address [address] Alan: Epic Prelude ADT MARIA T [place]CAD[place] [address] Care Team Providers Care Radio Antenna Installer Name Role Phone Mayelin Alfaro MD Primary Care Provider Allergies No known active allergies Medications clonazePAM (KlonoPIN) 1 mg tabletIndicatio ns:MIGUEL A (generalized anxiety disorder) Take 1 Tablet [...] for 7 days. 7 Tablet 02/15/2025 Active Problems Problem Noted Date Diagnosed Date [...] STL ABSTRACTION Provider, Abstract 02/17/2025 Results Follow-Up [facility] [address] [facility] [address] [place] [address] Vanessa Salguero APRN BLOOD CULTURE, BLOOD CULTURE 02/16/2025 External Device Data [facility] Medicine Stephane [address] [place] [address] Alla Mai MD 02/15/2025 6:16 AM CDT - 02/15/2025 8:43 AM CDT [facility] [address] [facility] [address] [place] [address] Flako Bryant MD Sindlinger, Timothy S, MD Acute bronchitis, unspecified organism (Primary Dx); Dysuria; Leukocytosis, unspecified type Discharge Disposition: Home or Self Care 02/14/2025 External Device Data ST[place] ABSTRACTION Provider, Abstract 02/08/2025 Results [facility] [address] [facility] [address] [place] [address] Veena Jules FNP IRON, TIBC, AND PERCENT SATURATION, VITAMIN B12 LEVEL, FERRITIN 02/07/2025 External Device Data [place] ABSTRACTION Provider, Abstract 02/07/2025 External Device Data [place] ABSTRACTION Provider, Abstract 02/07/2025 External Device Data [place] ABSTRACTION Provider, Abstract 02/06/2025 5:13 PM CDT - 02/07/2025 2:00 AM CDT [facility] [address] [facility] [address] [place] [address] Christina Clark MD Sindlinger, Billy Berger MD Anemia, unspecified type (Primary Dx) Discharge Disposition: Home or Self Care 02/06/2025 Travel 02/06/2025 - 02/06/2025 4:31 PM CDT [facility] [address] [facility] [address] [place] [address] Discharge Disposition: Home or Self Care from [...] worry about transportation for future doctor visits, 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 Gender Identity Not on file Sexual Orientation [...] VACCINE (1 of 2) 02/27/2006 [place] Prev entative Visit/Annual Wellness Visit 05/11/2024 INFLUENZA [...] Pale to Dark Yellow 02/15/2025 7:51 AM [facility] CLARITY UA Slightly Cloudy(A) Clear 02/15/2025 7:51 AM [facility] SPECIFIC GRAVITY UA 1.015 1.003 - 1.035 02/15/2025 7:51 AM [facility] PH UA 5.5 5.0 - 8.0 02/15/2025 7:51 AM [facility] LEUKOCYTE ESTERASE UA Trace(A) Negative 02/15/2025 7:51 AM [facility] NITRITE UA Negative Negative 02/15/2025 7:51 AM [facility] PROTEIN UA Trace(A) Negative 02/15/2025 7:51 AM [facility] GLUCOSE UA Negative Negative 02/15/2025 7:51 AM [facility] KETONES UA Trace(A) Negative 02/15/2025 7:51 AM [facility] UROBILINOGEN UA 0.2 <2.0 mg/dL 7:51 AM [facility] BILIRUBIN UA Negative Negative 02/15/2025 7:51 AM [facility] BLOOD UA Negative Negative 02/15/2025 7:51 AM [facility] Urine URINE SPECIMEN OBTAINED BY CLEAN CATCH PROCEDURE / Unknown Collection / Unknown 02/15/2025 7:40 AM CDT 02/15/2025 7:47 AM CDT Flako Bryant MD URINE ORDERABLES Carmela estrella Result [facility] CLIA # [id number] [address] [place] [address] * COVID-19 ANTIGEN (02/15/2025 7:38 AM CDT) COVID-19 ANTIGEN Presumptive Negative Presumptive Negative 02/15/2025 8:08 AM CDT [facility] Upper Respiratory ANTERIOR NARES SWAB / Unknown Collection / Unknown 02/15/2025 7:38 AM CDT 02/15/2025 7:47 AM CDT Narrative [facility] - 02/15/2025 8:08 AM CDT Jaida SARS antigen test has been authorized by FDA under an emergency use authorization (EUA) and has been authorized only for the detection of proteins from SARS-CoV-2 and influenza, not for any other viruses or pathogens. Jaida SARS Antigen JES is intended for the simultaneous qualitative detection and differentiation of nucleocapsid protein antigen from SARS-CoV-2 directly from nasopharyngeal (FRENCH EDGE OPERATOR) and nasal (NS) swab specimens collected from [...] O RDERABLES Final Result Performing Organization Address City/[facility] Co de Phone Number [facility] CLIA # [id number] [address] [place] [address] * INFLUENZA VIRUS A AND B, ANTIGEN DETECTION (02/15/2025 7:38 AM CDT) [facility] INFLUENZA A AG NOT DETECTED Not Detected 02/15/2025 8:08 AM CDT [facility] INFLUENZA B AG NOT DETECTED Not Detected 02/15/2025 8:08 AM CDT [facility] Upper Respiratory ENTIRE NASOPHARYNX / Unknown Collection / Unknown 02/15/2025 7:38 AM CDT 02/15/2025 7:47 AM CDT [facility] - 02/15/2025 8:08 AM CDT Negative results do not rule out infection. If clinically indicated, consider PCR testing which is more sensitive than antigen testing. If PCR testing is desired, consult with your local laboratory as sample recollection may be required. Billy Merritt MD MICROBIOLOGY - GENERAL O RDERABLES Final Result Performing Organization Address City/[facility] Co de Phone Number [facility] CLIA # [id number] [address] [place] [address] * BLOOD CULTURE (02/15/2025 7:35 AM CDT) Only the most recent of2 resultswithin the time period is included. [facility] BLOOD CULTURE No growth 02/20/2025 5:57 PM CDT [facility] Blood (Peripheral) Collection / Unknown 02/15/2025 7:35 AM CDT 02/15/2025 8:09 AM CDT us Billy Merritt MD MICROBIOLOGY - GENERAL O RDERABLES Final Result [facility] CLIA # [id number] [address] [facility] [place] [address] * MANUAL DIFFERENTIAL (02/15/2025 6:28 AM CDT) Only the most recent of2 resultswithin the time period is included. PLATELET EST. Consistent w Count 02/15/2025 6:52 AM CDT [facility] RBC MORPHOLOGY Normal 02/15/2025 6:52 AM CDT [facility] Blood BLOOD SPECIMEN / Unknown Collection / Unknown 02/15/2025 6:28 AM CDT 02/15/2025 6:44 AM CDT us Flako Bryant MD HEMATOLOGY ORDERABLES COM Final Result Performing Organization Address City/[facility]/ZIP Co de Phone Number [facility] CLIA # [id number] [address] [place] [address] [phone] * LACTIC ACID (02/15/2025 6:28 AM CDT) LACTIC ACID 1.1 <=2.0 mmol/L 02/15/2025 8:18 AM CDT [facility] Blood BLOOD SPECIMEN / Unknown Collection / Unknown 02/15/2025 6:28 AM CDT 02/15/2025 7:59 AM CDT us Billy Merritt MD CHEMISTRY ORDERABLES Fin al Result [facility] CLIA # [id number] [address] [place] [address] [phone] * (ABNORMAL) CBC WITH DIFFERENTIAL (02/15/2025 6:28 AM CDT) Only the most recent of2 resultswithin the time period is included. WBC 34.1(H) 4.2 - 9.1 K/uL 02/15/2025 6:52 AM [facility] RBC 2.53(L) 4.63 - 6.08 M/uL 02/15/2025 6:52 AM [facility] HEMOGLOBIN 9.0(L) 13.7 - 17.5 g/dL 02/15/2025 6:52 AM [facility] HEMATOCRIT 26.7(L) 40.1 - 51.0 % 02/15/2025 6:52 AM [facility] MCV 105.5(H) 79.0 - 92.2 fL 02/15/2025 6:52 AM [facility] MCH 35.6(H) 25.7 - 32.2 pg 02/15/2025 6:52 AM [facility] MCHC 33.7 32.3 - 36.5 g/dL 02/15/2025 6:52 AM [facility] RDW 17.2(H) 11.0 - 14.5 % 02/15/2025 6:52 AM [facility] RDW-STDEV 66.1(H) 36.9 - 56.9 fL 02/15/2025 6:52 AM [facility] PLATELETS 136 130 - 400 K/uL 02/15/2025 6:52 AM [facility] MPV 9.7(L) 10.0 - 14.8 fL 02/15/2025 6:52 AM [facility] NEUTROPHILS 28(L) 34 - 68 % 02/15/2025 6:52 AM [facility] LYMPHOCYTES 20(L) 22 - 53 % 02/15/2025 6:52 AM [facility] MONOCYTES 52(H) 5 - 12 % 02/15/2025 6:52 AM [facility] EOSINOPHILS 0(L) 1 - 7 % 02/15/2025 6:52 AM CDT [facility] BASOPHILS 0 0 - 1 % 02/15/2025 6:52 AM CDT [facility] IMMATURE GRANULOCYTES 0 % 02/15/2025 6:52 AM T [facility] NEUTROPHIL ABSOLUTE 9.50(H) 1.78 - 5.38 K/uL 02/15/2025 6:52 AM T [facility] LYMPHOCYTE ABSOLUTE 6.83(H) 1.20 - 3.40 K/uL 02/15/2025 6:52 AM T [facility] MONOCYTE ABSOLUTE 17.54(H) 0.30 - 0.82 K/uL 02/15/2025 6:52 AM [facility] EOSINOPHIL ABSOLUTE 0.14 0.04 - 0.54 K/uL 02/15/2025 6:52 AM [facility] BASOPHILS ABSOLUTE 0.07 0.01 - 0.08 K/uL 02/15/2025 6:52 AM [facility] IMMATURE GRANULOCYTES ABSOLUTE 0.00 K/uL 02/15/2025 6:52 AM [facility] Blood BLOOD SPECIMEN / Unknown Collection / Unknown 02/15/2025 6:28 AM CDT 02/15/2025 6:44 AM CDT us Flako Bryant MD HEMATOLOGY ORDERABLES Final [id number] [address] [place] [address] * (ABNORMAL) PROTIME-INR (02/15/2025 6:28 AM CDT) Only the most recent of2 resultswithin the time period is included. PROTIME 15.4(H) 12.1 - 14.3 Seconds 02/15/2025 7:02 AM CDT [facility] INR 1.2(H) 0.9 - 1.1 02/15/2025 7:02 AM T [facility] Blood BLOOD SPECIMEN / Unknown Collection / Unknown 02/15/2025 6:28 AM CDT 02/15/2025 6:54 AM CDT Flako Bryant MD HEMATOLOGY ORDERABLES Final Result [facility] CLIA # [id number] [address] [place] [address] * (ABNORMAL) COMPREHENSIVE METABOLIC PANEL (02/15/2025 6:28 AM CDT) Only the most recent of2 resultswithin the time period is included. SODIUM 138 136 - 145 mmol/L 02/15/2025 6:59 AM [facility] POTASSIUM 3.8 3.5 - 5.1 mmol/L 02/15/2025 6:59 AM [facility] CHLORIDE 102 98 - 107 mmol/L 02/15/2025 6:59 AM [facility] CO2 24 22 - 29 mmol/L 02/15/2025 6:59 AM [facility] CALCIUM 8.8 8.8 - 10.2 mg/dL 02/15/2025 6:59 AM [facility] BUN 16 8 - 23 mg/dL 02/15/2025 6:59 AM [facility] CREATININE 1.13 0.67 - 1.17 mg/dL 02/15/2025 6:59 AM [facility] GLUCOSE 109(H) 74 - 99 mg/dL 02/15/2025 6:59 AM [facility] TOTAL PROTEIN 7.2 6.6 - 8.7 g/dL 02/15/2025 6:59 AM [facility] ALBUMIN 3.7 3.5 - 5.2 g/dL 02/15/2025 6:59 AM [facility] BILIRUBIN TOTAL 0.6 0.0 - 1.2 mg/dL 02/15/2025 6:59 AM [facility] ALKALINE PHOSPHATASE 67 40 - 129 U/L 02/15/2025 6:59 AM CDT [facility] AST 15 0 - 50 U/L 02/15/2025 6:59 AM CDT [facility] ALT 12 0 - 50 U/L 02/15/2025 6:59 AM CDT [facility] GFR >60 >=60 mL/min/1.7 3 sq meter 02/15/2025 6:59 AM CDT [facility] Comment:eGFR calculated with 2020 CKD-EPI equation. Vegetarian diet, extremely high or low muscle mass, and may affect results. Cystatin C with Glomerular Filtration Rate is a suitable alternative for these patients. ANION GAP 12 5 - 20 mmol/L 02/15/2025 6:59 AM CDT [facility] Blood BLOOD SPECIMEN / Unknown Collection / Unknown 02/15/2025 6:28 AM CDT 02/15/2025 6:44 AM CDT Flako Bryant MD CHEMISTRY ORDERABLES Final Result [facility] CLIA # [id number] [address] [place] [address] [phone] * TRANSFUSE RED BLOOD CELLS (02/07/2025 1:50 AM CDT) Only the most recent of2 resultswithin the time period is included. Billy Merritt MD BLOOD TRANSFUSION ORDERA BLES Final Result * (ABNORMAL) HEMOGLOBIN AND HEMATOCRIT (02/07/2025 1:20 AM CDT) HEMOGLOBIN 7.6(L) 13.7 - 17.5 g/dL 02/07/2025 1:29 AM CDT [facility] HEMATOCRIT 22.2(L) 40.1 - 51.0 % 02/07/2025 1:29 AM CDT [facility] Blood BLOOD SPECIMEN / Unknown Collection / Unknown 02/07/2025 1:20 AM CDT 02/07/2025 1:24 AM CDT us Billy Merritt MD HEMATOLOGY ORDERABLES Fi nal Result [facility] # [id number] [address] [place] [address] * EKG 12 lead (02/06/2025 6:35 PM CDT) Narrative Billy Merritt MD - 02/06/2025 6:35 PM CDT Billy Merritt MD 02/07/2025 6:47 AM EKG 12 lead Date/Time: 02/06/2025 6:35 PM Performed by: Christina Clark MD Authorized by: Christina Clark MD ECG interpreted by ED Physician in the absence of a letterset press set up operator: yes Rate: ECG rate: 74 ECG rate assessment: age appropriate Blocks: AV: Incomplete RBBB. QRSTT: QRSTT changes: No us Christina Clark MD ECG ORDERABLES Final Result [...] CROSSMATCH COMPATIBLE Compatible 02/06/2025 6:52 PM CDT [facility] NUMBER OF UNITS 2 02/06/2025 6:52 PM CDT [facility] PACKED RED BLOOD CELLS [id number] 02/06/2025 6:52 PM CDT [facility] BLOOD BANK PRODUCT [id number] 02/06/2025 6:52 PM CDT [facility] PRBC #1 - DONOR UNIT EXPIRATION 02/27/2025 02/06/2025 6:52 PM CDT [facility] PRBC #1 - DONOR UNIT TYPE A POS 02/06/2025 6:52 PM CDT [facility] PACKED RED BLOOD CELLS #2 [id number] 02/06/2025 6:52 PM CDT [facility] BLOOD BANK PRODUCT #2 [id number] 02/06/2025 6:52 PM CDT [facility] PRBC #2 - DONOR UNIT EXPIRATION 02/27/2025 02/06/2025 6:52 PM CDT [facility] PRBC #2 - DONOR UNIT TYPE A POS 02/06/2025 6:52 PM CDT [facility] POSITIVE AB SCREEN OR HISTORY? No 02/06/2025 6:52 PM CDT [facility] Other, specify 02/06/2025 6: 03 PM CDT 02/06/2025 6:03 PM CDT Christina Clark MD LAB TRANSFUSION ORDERABLES Carmela l Result [facility] CLIA # [id number] [address] [place] [address] * VERIFICATION BLOOD GROUP (02/06/2025 5:28 PM CDT) ABO/RH TYPE A POS 02/06/2025 6:53 PM CDT [facility] Blood BLOOD SPECIMEN / Unknown Venipuncture / Unknown 02/06/2025 5:28 PM CDT 02/06/2025 6:22 PM CDT Christina Clark MD BLOOD BANK ORDERABLES Final Res ult [facility] CLIA # [id number] [address] [place] [address] * (ABNORMAL) IRON, TIBC, AND PERCENT SATURATION (02/06/2025 5:28 PM CDT) IRON 90 59 - 158 ug/dL 02/07/2025 5:43 PM CDT [facility] TIBC 161(L) 250 - 450 ug/dL 02/07/2025 5:43 PM CDT [facility] IRON % SATURATION 56 15 - 60 % 02/07/2025 5:43 PM CDT [facility] Blood BLOOD SPECIMEN / Unknown Venipuncture / Unknown 02/06/2025 5:28 PM CDT 02/06/2025 6:17 PM CDT us Christina Clark MD CHEMISTRY ORDERABLES Final Resu lt Performing Organization Address [facility]/ZIP Co de Phone Number [facility] CLIA # [id number] [address] [address] * (ABNORMAL) FERRITIN (02/06/2025 5:28 PM CDT) FERRITIN 1,040.0(H) 30.0 - 400.0 ng/mL 02/07/2025 5:43 PM CDT [facility] Blood BLOOD SPECIMEN / Unknown Venipuncture / Unknown 02/06/2025 5:28 PM CDT 02/06/2025 6:17 PM CDT us Christina Clark MD CHEMISTRY ORDERABLES Final Resu lt Performing Organization Address City/[facility]/ZIP Co de Phone Number [facility] CLIA # [id number] [address] [address] * VITAMIN B12 LEVEL (02/06/2025 5:28 PM CDT) VITAMIN B12 904 211 - 946 pg/mL 02/07/2025 5:56 PM CDT [facility] Blood BLOOD SPECIMEN / Unknown Venipuncture / Unknown 02/06/2025 5:28 PM CDT 02/06/2025 6:17 PM CDT us Christina Clark MD CHEMISTRY ORDERABLES Final Resu lt Performing Organization Address City/[facility]/ZIP Co de Phone Number [facility] CLIA # [id number] [address] [facility] [place] [address] * PTT (02/06/2025 5:25 PM CDT) PTT 30.3 25.1 - 35.4 seconds 02/06/2025 5:52 PM CDT [facility] Blood BLOOD SPECIMEN / Unknown Venipuncture / Unknown 02/06/2025 5:25 PM CDT 02/06/2025 5:36 PM CDT us Christina Clark MD HEMATOLOGY ORDERABLES Final Res ult Performing Organization Address City/[facility]/ZIP Co de Phone Number [facility] CLIA # [id number] [address] [place] [address] * TYPE AND SCREEN (02/06/2025 5:25 PM CDT) Pathologist [facility] ABO/RH TYPE A POS 02/06/2025 6:30 PM CDT [facility] ANTIBODY SCREEN Negative 02/06/2025 6:30 PM CDT [facility] Blood BLOOD SPECIMEN / Unknown Venipuncture / Unknown 02/06/2025 5:25 PM CDT 02/06/2025 5:36 PM CDT us Christina Clark MD BLOOD BANK ORDERABLES Final Res ult [facility] CLIA # [id number] [address] [place] [address] * (ABNORMAL) C-REACTIVE PROTEIN (02/06/2025 5:25 PM CDT) CRP 41.3(H) <5.0 mg/L 02/06/2025 6:03 PM CDT [facility] Blood BLOOD SPECIMEN / Unknown Venipuncture / Unknown 02/06/2025 5:25 PM CDT 02/06/2025 5:36 PM CDT us Christina Clark MD CHEMISTRY ORDERABLES Final Resu lt [facility] CLIA # [id number] [address] [place] [address] * (ABNORMAL) BRAIN NATRIURETIC PEPTIDE, BNP OR PROBNP (02/06/2025 5:25 PM CDT) PROBNP, N TERMINAL 260(H) 0 - 125 pg/mL 02/06/2025 6:03 PM CDT [facility] Comment: INTERPRETIVE COMMENT based on diagnosis: Diagnostic [...] Clark MD CHEMISTRY ORDERABLES Final Resu lt [facility] CLIA # [id number] [address] [place] [address] from Last 3 Months Insurance [employer] MEDICARE HMO Care Teams Radio Antenna Installer Relationship Specialty Start Date End Date Mayelin Alfaro MD [facility] [address] [address] PCP - General Family Practice 07/14/17
[2025-03-13 15:49] LABS: Hematocrit 27.0 % (37-53); Hemoglobin 8.90 g/dL (11.27-16.99); Mean Corpuscular HGB Conc 33.0 g/dL (30-55); Mean Corpuscular Hemoglobin 32.1 pg (27-33); Mean Corpuscular Volume 97.5 fl (82-101); Nucleated Red Blood Cells % 0 %; Platelet Count 32 10^3/cmm (157-399); Red Blood Count 2.77 10^6/uL (3.85-5.65)
[2025-03-13 16:06] LABS: Troponin(5th) Baseline 8 ng/L (0-15)
--- NOTE | 2025-03-13 16:07 | W.ED.FEVER ---
HPI - Fever General: Chief Complaint: Fever Stated Complaint: Fever 100.4-102.6 tired Time Seen by Provider: 03/13/25 16:07 History of Present Illness: 70-year-old man with a history of recently diagnosed AML with blast crisis for which he was sent by Dr. Fairchild to [facility] for treatment who presents emergency room today with neutropenia and fever. Apparently he had done a 14-day treatment rather than the traditional 4-week treatment. He developed fevers since Thursday. He is had a dry cough for some time now. He has had some chills and sweats. No altered mental status. No focal motor deficits. Related Data Home Medications ?Medication ?Instructions ?Recorded ?Confirmed lovastatin 40 mg tablet 40 mg PO QPM 06/14/24 02/22/25 clobetasol 0.05 % topical cream See Rx Instructions .Route .COMPLEX 02/22/25 02/22/25 levofloxacin 500 mg tablet 500 mg PO DAILY 02/22/25 02/22/25 omeprazole 40 mg capsule,delayed 40 mg PO DAILY 02/22/25 02/22/25 release Previous Rx's ?Medication ?Instructions ?Recorded fluticasone propionate 50 2 spray intranasal DAILY PRN 10/10/24 mcg/actuation nasal allergy symptoms #16 grams spray,suspension alprazolam 1 mg tablet 1 mg PO DAILY PRN anxiety 90 days 01/25/25 #30 tabs Allergies Allergy/AdvReac Type Severity Reaction Status Date / Time No Known Allergies Allergy Verified 03/13/25 14:55 Review of Systems Narrative: Constitutional symptoms: Negative except as documented in HPI. Skin symptoms: Negative except as documented in HPI. Eye symptoms: Negative except as documented in HPI. ENMT symptoms: Negative except as documented in HPI. Respiratory symptoms: Negative except as documented in HPI. Cardiovascular symptoms: Negative except as documented in HPI. Gastrointestinal symptoms: Negative except as documented in HPI. Genitourinary symptoms: Negative except as documented in HPI. Musculoskeletal symptoms: Negative except as documented in HPI. Neurologic symptoms: Negative except as documented in HPI. Psychiatric symptoms: Negative except as documented in HPI. Endocrine symptoms: Negative except as documented in HPI. PFSH ED PFSH: Medical History (Updated 03/13/25 @ 17:51 by Jody Hand MD) Urinary frequency Mixed hyperlipidemia Benign neoplasm of unknown origin Mole Eczema Facial lesion Environmental and seasonal allergies Other age-related cataract of both eyes Anxiety Encounter to establish care Prostate cancer screening Vitamin D deficiency Surgical History H/O colonoscopy History of melanoma excision Social History Smoking and tobacco/nicotine status: former use of tobacco/nicotine Physical Exam Narrative: EXAM NARRATIVE: General: Alert, no acute distress. Skin: Warm, dry. Head: Normocephalic, atraumatic. Neck: Supple, trachea midline. Eye: Extraocular movements are intact. Ears, nose, mouth and throat: Tacky oral mucosa Cardiovascular: Regular, Normal peripheral perfusion. Respiratory: Lungs are clear to auscultation, respirations are non-labored, breath sounds are equal, Symmetrical chest wall expansion. Gastrointestinal: Soft, Nontender, Non distended Musculoskeletal: Normal ROM, no deformity. Neurological: Alert and oriented, No focal neurological deficit observed. Psychiatric: Cooperative, appropriate mood & affect. Course Vital Signs: Vital signs: Vital Signs Temperature 100.3 F H 03/13/25 14:47 Pulse Rate 104 H 03/13/25 16:48 Blood Pressure 116/74 03/13/25 16:48 Pulse Oximetry 96 03/13/25 16:48 Oxygen Delivery Me thod Room Air 03/13/25 14:47 MDM - Fever Medical Decision Making Medical decision making: Patient's reason for coming to the emergency room: Neutropenic fever Social determinants: This patient does not want further treatment and does not want bone marrow transplant. He says he wants hospice if that is necessary and refuses to be transferred to [place]. I reviewed the patient's medical record. 70-year-old man with a history of recently diagnosed AML with blast crisis for which he was sent by Dr. Fairchild to [facility] for treatment I reviewed the patient's current home meds Alternate historians: gave some history as well. I also spoke with oncology on-call at [facility]. Differential diagnosis: including but not limited to and based on the above HPI, review of systems and physical exam: In this patient with neutropenia and fever concern for sepsis and bacteremia. Pneumonia, urinary tract infection or viral illnesses such as flu COVID and RSV. Blood cultures and lactate sent. Orders placed to evaluate differential diagnosis based on the above differential, HPI and physical exam EKG: Time 1500. Rate 94. Normal sinus rhythm, No ST-T changes, no ectopy, incomplete right bundle branch block, This was reviewed and interpreted by myself the ER physician at 1505 Repeat EKG: Time 1657. Rate 103. Sinus tachycardia, nonspecific ST changes, no ectopy, incomplete right bundle branch block, this was reviewed and interpreted by myself the ER physician at 1701. Rate has increased some from earlier. Now with some nonspecific ST changes. Chest x-ray: No acute process. No infiltrate. No pneumothorax. This was reviewed and interpreted by myself the emergency room physician. I also reviewed the radiology report. Lab Review: Laboratory results were reviewed and interpreted by myself the emergency room physician. Patient is neutropenic. Leukopenic. Anemic with a hemoglobin of 8.9. Thrombocytopenic with a platelet count of 32. No renal failure. Liver enzymes are normal. Procalcitonin is mildly elevated at 0.65. Lactic acid was not elevated Assessment of risk: Level of risk: High risk Hospitalization considerations: Patient is being admitted for neutropenic fever. Cultures been sent. He will be treated with IV antibiotics at least until these come back negative Reexamination: Patient remained stable. No increased work of breathing. No altered mental status. No focal motor deficits. Consultation: I spoke with Dr. Martinez who initially saw the patient and sent them to [facility]. He states that usually this is a 4-week treatment and he is concerned about what happened. Consultation: I spoke with oncology on-call at [facility]. They reviewed the chart and discussed that he was treated with 7 days of azacitidine and 14 days of venetoclax. He also reported that he stated he was not interested in having bone marrow transplant and he would go on hospice if this did not work. Consultation: I spoke with Dr. Shaffer who is on-call for hospitalist service and she agrees to admission. Assessment and plan: Neutropenic fever -2.5 L normal saline bolus. Fluid volumes based on ideal body weight. -Broad-spectrum antibiotics were administered. Cefepime and Zyvox. Presumed sepsis in this neutropenic febrile patient. -Sepsis quality measures. -Lactic acid with a reflex was ordered. -Blood cultures were ordered. ?I reevaluated the patient's volume status after sepsis fluids were given. -I discussed the patient with the hospitalist on-call who is admitting the patient. - Discussed findings and plan with patient. Answered any questions. - All laboratory values were reviewed and interpreted personally by myself, the ER physician - All imaging was reviewed and interpreted personally by myself, the ER physician. - Evaluation and treatment of this problem were appropriate in the emergency setting Critical Care: -I spent a total of 36 minutes of critical care time managing the patient, independent of any other practitioner. -The time involved in the performance of separately reportable procedures was not counted towards critical care time. Lab Data 03/13/25 15:29 03/13/25 15: Radiology Impressions Chest X-Ray 03/13/25 16:09 IMPRESSION: 1. No acute cardiopulmonary pathology. 2. No significant change from the prior study is appreciated. 3. 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 Laboratory Results WBC 0.70 10^3/uL (3.29-11.43) L* 03/13/25 15: RBC 2.77 10^6/uL (3.85-5.65) L 03/13/25 15: Hgb 8.90 g/dL (11.27-16.99) L 03/13/25 15: Hct 27.0 % (37-53) L 03/13/25 15: MCV 97.5 fl (82-101) 03/13/25 15: MCH 32.1 pg (27-33) 03/13/25 15: MCHC 33.0 g/dL (30-55) 03/13/25 15: RDW 16.8 % (12.1-15.1) H 03/13/25 15: Plt Count 32 10^3/cmm (157-399) L 03/13/25 15: MPV 11.5 fL (7.4-10.4) H 03/13/25 15: Neut % (Auto) 21.5 % 03/13/25: Lymph % (Auto) 57.1 % 03/13/25: Valley % (Auto) 20.0 % 03/13/25: Eos % (Auto) 0.0 % 03/13/25: Baso % (Auto) 0.0 % 03/13/25 15: Neut # (Auto) 0.15 10^3/uL (1.8-7.7) L* 03/13/25 15: Lymph # (Auto) 0.4 10^3/uL (0.8-4.8) L 03/13/25 15: Valley # (Auto) 0.1 10^3/uL (0.2-0.9) L 03/13/25: Eos # (Auto) 0.0 10^3/uL (0.0-0.8) 03/13/25 15: Baso # (Auto) 0.0 10^3/uL (0.0-0.1) 03/13/25: Nucleated RBC % (auto) 0 % 03/13/25: Nucleated RBCs # 0.0 /100WBC 03/13/25 15: Sodium 134 mmol/L (136-145) L 03/13/25 15: Potassium 3.6 mmol/L (3.5-5.1) 03/13/25 15: Chloride 97 mmol/L (98-107) L 03/13/25 15: Carbon Dioxide 25 mmol/L (22-29) 03/13/25 15: Anion Gap 15.6 (5-19) 03/13/25 15: BUN 17 mg/dL (8-23) 03/13/25 15: Creatinine 0.8 mg/dL (0.7-1.2) 03/13/25 15: GFR Calculation 95.8 mL/min (90-130) 03/13/25 15: Glucose 120 mg/dL (65-115) H 03/13/25 15: Calculated Osmolality 281 mOsm/kg (285-295) L 03/13/25 15: Lactic Acid 0.9 mmol/L (0.5-2.2) 03/13/25 15: Calcium 8.3 mg/dL (8.5-10.5) L 03/13/25 15: Total Bilirubin 1.3 mg/dL (0.15-1.2) H 03/13/25 15: AST 11 U/L (0-40) 03/13/25 15: ALT 14 U/L (0-41) 03/13/25 15:29 Alkaline Phosphatase 61 U/L (40-130) 03/13/25 15:29 Troponin T Baseline 8 ng/L (0-15) 03/13/25 15:29 C-Reactive Protein 71.3 mg/L (0.0-4.9) H 03/13/25 15:29 Total Protein 7.1 g/dL (6.6-8.7) 03/13/25 15:29 Albumin 3.8 g/dL (3.5-5.2) 03/13/25 15:29 Globulin 3.3 g/dL (1.3-4.6) 03/13/25 15:29 Procalcitonin 0.65 ng/mL (0-0.5) H 03/13/25 15:29 All radiology interpretation(s) finalized by discharge Discharge Plan Discharge Patient Disposition: Admitted As Inpatient Clinical Impression: Neutropenic fever, AML (acute myeloblastic leukemia) Condition: Stable Coding Level of Care Code ED Merchant Miller for Lauro Flores
[2025-03-13 16:09] LABS: Lactic Sepsis W/Reflex 0.9 mmol/L (0.5-2.2)
--- NOTE | 2025-03-13 16:09 | XRR_ITS ---
PROCEDURE INFORMATION: Exam: XR Chest Exam date and time: 03/13/2025 4:10 PM Age: 70 years old Clinical indication: Fever; Additional info: Fever, neutropenic TECHNIQUE: Imaging protocol: Radiologic exam of the chest. Views: 1 view. COMPARISON: CR XR chest 1V portable [id number] 02/22/2025 2:42 PM FINDINGS: Lungs: Unremarkable. No consolidation. Pleural spaces: Unremarkable. No pleural effusion. No pneumothorax. Heart/Mediastinum: Stable mild cardiomegaly. Bones/joints: Medullary sclerosis in the left humeral shaft, unchanged from prior study and most consistent with prior bone infarct. XR/XR chest 1V portable [id number] IMPRESSION: 1. No acute cardiopulmonary pathology. 2. No significant change from the prior study is appreciated. 3. 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
[2025-03-13 16:10] LABS: Alanine Aminotransferase 14 U/L (0-41); Albumin Level 3.8 g/dL (3.5-5.2); Alkaline Phosphatase 61 U/L (40-130); Anion Gap 15.6 (5-19); Aspartate Amino Transferase 11 U/L (0-40); Blood Urea Nitrogen 17 mg/dL (8-23); Calcium 8.3 mg/dL (8.5-10.5); Carbon Dioxide 25 mmol/L (22-29); Chloride 97 mmol/L (98-107); Creatinine Clr Calc Pharmacy 93.3985; Globulin 3.3 g/dL (1.3-4.6); Glucose 120 mg/dL (65-115); Osmolality Calculated 281 mOsm/kg (285-295); Potassium 3.6 mmol/L (3.5-5.1); Sodium 134 mmol/L (136-145); Total Protein 7.1 g/dL (6.6-8.7)
[2025-03-13 16:14] LABS: White Blood Count 0.70 10^3/uL (3.29-11.43)
[2025-03-13 16:17] LABS: Procalcitonin 0.65 ng/mL (0-0.5)
[2025-03-13] MEDS: linezolid premix 600 MG/300 ML PREMIX 300 MG IV (16:33)
[2025-03-13] MEDS: cefepime 2,000 mg SDV 2000 MG IVP (16:33)
[2025-03-13 16:48] VITALS: BP 116/74; PULSE 104; O2SAT 96
--- NOTE | 2025-03-13 16:49 | ECG_ITS ---
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 Measurements Intervals [place] Rate: 103 P: 37 LA: 124 QRS: 11 QRSD: 102 T: 40 QT: 370 QTc: 485 Interpretive Statements Possible SINUS TACHYCARDIA INCOMPLETE RIGHT BUNDLE BRANCH BLOCK [90+ ms QRS DURATION, TERMINAL R IN V1/V2, 40+ ms S IN I/aVL/V4/V5/V6] NONSPECIFIC T-WAVE ABNORMALITY ABNORMAL RHYTHM ECG Compared to ECG 03/13/2025 15:00:01 Sinus rhythm no longer present T-wave abnormality still present Baseline artifacts, need to repeat Electronically Signed On 03-14-2025 22:24:21 PROGRAM MANAGER by Kobe Angeles M.D. [email or web address]
[2025-03-13 17:55] LABS: Troponin 5 2HR 6.55 ng/L (0-15)
[2025-03-13 17:58] LABS: Troponin 5 2HR Delta -1.45 ABS# (0-10)
--- NOTE | 2025-03-13 18:21 | CTR_ITS ---
PROCEDURE INFORMATION: Exam: CT Chest Without Contrast; Diagnostic Exam date and time: 03/13/2025 7:15 PM Age: 70 years old Clinical indication: Other: Fever and neutropenia, assess for pneumonia, colitis; PT arrives from oncology with nurse C/O fever for the past few days. PT recently started oral chemo and has been getting transfusions. TECHNIQUE: Imaging protocol: Diagnostic computed tomography of the chest without contrast. Radiation optimization: All CT scans at this facility use at least one of these dose optimization techniques: automated exposure control; mA and/or kV adjustment per patient size (includes targeted exams where dose is matched to clinical indication); or iterative reconstruction. COMPARISON: CR XR chest 1V portable [id number] 03/13/2025 4:10 PM RADIATION DOSE METRICS: Total DLP (mGy-cm): 612.58 FINDINGS: Lungs: No consolidation. No masses. Pleural spaces: No pneumothorax. No pleural effusion. Heart: No cardiomegaly. No pericardial effusion. Lymph nodes: Unremarkable. No enlarged lymph nodes. Vasculature: Unremarkable. No aortic aneurysm. Bones/joints: Unremarkable. No acute fracture. Soft tissues: Unremarkable. PROCEDURE INFORMATION: Exam: CT Abdomen And Pelvis Without Contrast Exam date and time: 03/13/2025 7:15 PM Age: 70 years old Clinical indication: Other: Fever and neutropenia, assess for pneumonia, colitis; PT arrives from oncology with nurse C/O fever for the past few days. PT recently started oral chemo and has been getting transfusions. TECHNIQUE: Imaging protocol: Computed tomography of the abdomen and pelvis without contrast. Radiation optimization: All CT scans at this facility use at least one of these dose optimization techniques: automated exposure control; mA and/or kV adjustment per patient size (includes targeted exams where dose is matched to clinical indication); or iterative reconstruction. COMPARISON: CR XR chest 1V portable [id number] 03/13/2025 4:10 PM RADIATION DOSE METRICS: Total DLP (mGy-cm): 612.58 FINDINGS: Liver: Unremarkable. Gallbladder and biliary ducts: No calcified stones. No ductal dilation. Pancreas: No ductal dilation. Spleen: No splenomegaly. Adrenal glands: Normal. No mass. Kidneys and ureters: No hydronephrosis. Stomach and bowel: No obstruction. No mucosal thickening. Appendix: No evidence of appendicitis. Intraperitoneal space: No free air. No significant fluid collection. Vasculature: No abdominal aortic aneurysm. Lymph nodes: No enlarged lymph nodes. Urinary bladder: Unremarkable as visualized. Reproductive: Unremarkable. Bones/joints: Unremarkable. No acute fracture. Soft tissues: Unremarkable. CT/CT chest abdpel [id number] IMPRESSION: No acute findings. IMPRESSION: No acute findings.
--- NOTE | 2025-03-13 18:23 | PM.HP ---
Providers/Chief Complaint Admitting Physician: Faby Shaffer MD Primary Care Provider: Stacey Lundy NP Chief Complaint: Fever 100.4-102.6 tired has iv access R forarm 20g History of Present Illness Srini Garcia is a 70 year old male with a recent diagnosis of AML. He had presented to the emergency room on February 22, 2025 with a leukocytosis of 32,000 with blast cells and was transferred to [facility] for concern for acute myelo blastic leukemia. The diagnosis was confirmed after transfer there. I do not have the records available, however per his family at bedside he was diagnosed with an AML-MDS overlap. He started induction chemotherapy with as azacitidine and venetoclax and was discharged with oral chemo which he discontinued 3 days ago as he was feeling very weak and felt that the chemo was giving him side effects. He was planned to return to [facility] on 03/28/2025 for repeat bone marrow assessment and to follow-up on cytogenetic analysis to assess if he is a candidate for BMT. His hospital course that was complicated by anemia requiring packed red blood cell transfusion. He did not receive any platelets at that time. His other past history is notable for GAVE, he avoids all NSAIDs and p.o. Tylenol due to this reason. Patient is presenting today with fever and neutropenia. He is noted to have a WBC count of 0.7 with an ANC of only 150. He has thrombocytopenia with a platelet count of 32,000. Hemoglobin today is at 8.9. He has a fever of 102 Fahrenheit. Reports some dry cough. No significant expectoration. He had urinary burning before his admission at [place], however this has since resolved. He has some chronic abdominal pain related to GAVE, however more recently has had more abdominal discomfort than usual. He denies any diarrhea. Denies any URI type symptoms. He has been on prophylaxis with levofloxacin 500 mg as an outpatient since his chemo Patient was offered transfer to [facility] given recent induction chemo, unknown bone marrow status after chemo, however patient refused transfer. States he will not be going back to [place] for follow-up. He wants to transfer his care locally here. He has a history of melanoma in the past and states that he is not interested in any aggressive interventions going forward. States he is not interested in pursuing BMT even if results end up showing he may be a candidate. Review of Systems General: Reports: 10 or more systems reviewed and unremarkable except in HPI and below Const: Denies: fever(s), chills or body aches Eyes: Denies: change in vision, blurry vision or photophobia ENMT: Reports: hoarseness; Denies: throat pain, enlarged tonsils, odynophagia or nasal congestion Card: Denies: chest pain, palpitations, irregular heart rhythm, edema, swelling of feet/ankles, lightheadedness, pre-syncope, dyspnea on exertion or orthopnea Resp: Denies: dyspnea, productive cough, non-productive cough, wheezing, stridor, pain on inspiration, change in phlegm color, hemoptysis or chest congestion GI: Denies: abdominal pain, nausea, vomiting, hematemesis, coffee ground emesis, dysphagia, heartburn, diarrhea, constipation, GI cramping, change in stool character, hematochezia or melena : Denies: flank pain, dysuria, urinary frequency, urinary urgency, urinary hesitancy or hematuria Musc: Denies: neck pain, back pain, extremity pain, joint swelling, joint warmth or deformity Neuro: Denies: headache(s), numbness in extremities, weakness in extremities, sensory changes, difficulty walking, frequent falls, dizziness, vertigo, behavioral changes, Slurred speech present or seizure-like activity Psych: Denies: anxiety, depression, suicidal ideation or homicidal ideation Endo: Denies: polyuria, polydipsia, tired all the time, cold intolerance or hot flashes Lenard/Lymph: Denies: easy bruising or easy bleeding Medications/Allergies Home Medications ?Medication ?Instructions ?Recorded ?Confirmed ?Last Taken ?Type lovastatin 40 mg tablet 40 mg PO QPM 06/14/24 02/22/25 Unknown History fluticasone propionate 50 2 spray intranasal DAILY PRN 10/10/24 02/22/25 Unknown Rx mcg/actuation nasal allergy symptoms #16 grams spray,suspension alprazolam 1 mg tablet 1 mg PO DAILY PRN anxiety 90 days 01/25/25 02/22/25 02/21/25 20:00 Rx #30 tabs clobetasol 0.05 % topical cream See Rx Instructions .Route .COMPLEX 02/22/25 02/22/25 Unknown History levofloxacin 500 mg tablet 500 mg PO DAILY 02/22/25 02/22/25 02/21/25 History omeprazole 40 mg capsule,delayed 40 mg PO DAILY 02/22/25 02/22/25 02/21/25 20:00 History release Allergies Allergy/AdvReac Type Severity Reaction Status Date / Time No Known Allergies Allergy Verified 03/13/25 14:55 PFSH Acute PFSH: Medical History Urinary frequency Mixed hyperlipidemia Benign neoplasm of unknown origin Mole Eczema Facial lesion Environmental and seasonal allergies Other age-related cataract of both eyes Anxiety Encounter to establish care Prostate cancer screening Vitamin D deficiency Surgical History H/O colonoscopy History of melanoma excision Social History Smoking and tobacco/nicotine status: former use of tobacco/nicotine Vitals/I&O/Wt Last Vital Signs Temp 100.3 F H 03/13/25 14:47 Pulse 104 H 03/13/25 16:48 BP 116/74 03/13/25 16:48 Pulse Ox 96 03/13/25 16:48 O2 Del Method Room Air 03/13/25 14:47 Weight last 48 hrs Weight 73.028 kg Physical Exam Narrative: General: No acute distress, AO x3 HEENT: PERRLA, pupils bilaterally equal and reactive, pallors not present Chest: Normal vesicular breath sounds, no added sounds, equal good air entry bilaterally CVS: S1-S2 regular, no murmurs, no tachycardia, no gallops, no rubs Abdomen: Soft, nontender, no organomegaly, bowel sounds present Neuro: No focal deficits, no facial deformity, AO x3, power 5/5 in all limbs Data 03/13/25 15:29 03/13/25 15:29 Other Labs: Radiology Impressions Chest X-Ray 03/13/25 16:09 IMPRESSION: 1. No acute cardiopulmonary pathology. 2. No significant change from the prior study is appreciated. 3. 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 Laboratory Results WBC 0.70 10^3/uL (3.29-11.43) L* 03/13/25 15:29 RBC 2.77 10^6/uL (3.85-5.65) L 03/13/25 15: Hgb 8.90 g/dL (11.27-16.99) L 03/13/25 15: Hct 27.0 % (37-53) L 03/13/25 15: MCV 97.5 fl (82-101) 03/13/25 15: MCH 32.1 pg (27-33) 03/13/25 15: MCHC 33.0 g/dL (30-55) 03/13/25 15: RDW 16.8 % (12.1-15.1) H 03/13/25 15: Plt Count 32 10^3/cmm (157-399) L 03/13/25: MPV 11.5 fL (7.4-10.4) H 03/13/25 15: Neut % (Auto) 21.5 % 03/13/25: Lymph % (Auto) 57.1 % 03/13/25: [place] % (Auto) 20.0 % 03/13/25: Eos % (Auto) 0.0 % 03/13/25: Baso % (Auto) 0.0 % 03/13/25: Neut # (Auto) 0.15 10^3/uL (1.8-7.7) L* 03/13/25: Lymph # (Auto) 0.4 10^3/uL (0.8-4.8) L 03/13/25: [place] # (Auto) 0.1 10^3/uL (0.2-0.9) L 03/13/25: Eos # (Auto) 0.0 10^3/uL (0.0-0.8) 03/13/25: Baso # (Auto) 0.0 10^3/uL (0.0-0.1) 03/13/25: Nucleated RBC % (auto) 0 % 03/13/25: Nucleated RBCs # 0.0 /100WBC 03/13/25 15: Sodium 134 mmol/L (136-145) L 03/13/25: Potassium 3.6 mmol/L (3.5-5.1) 03/13/25 15:29 Chloride 97 mmol/L (98-107) L 03/13/25 15: Carbon Dioxide 25 mmol/L (22-29) 03/13/25 15: Anion Gap 15.6 (5-19) 03/13/25 15:29 BUN 17 mg/dL (8-23) 03/13/25 15: Creatinine 0.8 mg/dL (0.7-1.2) 03/13/25 15: GFR Calculation 95.8 mL/min (90-130) 03/13/25 15:29 Glucose 120 mg/dL (65-115) H 03/13/25 15:29 Calculated Osmolality 281 mOsm/kg (285-295) L 03/13/25 15: Lactic Acid 0.9 mmol/L (0.5-2.2) 03/13/25 15: Calcium 8.3 mg/dL (8.5-10.5) L 03/13/25 15: Total Bilirubin 1.3 mg/dL (0.15-1.2) H 03/13/25 15:29 AST 11 U/L (0-40) 03/13/25 15:29 ALT 14 U/L (0-41) 03/13/25 15: Alkaline Phosphatase 61 U/L (40-130) 03/13/25 15:29 Troponin T Baseline 8 ng/L (0-15) 03/13/25 15: Troponin T 120 Minute 6.55 ng/L (0-15) 03/13/25 17:09 Delta Troponin T -1.45 ABS# (0-10) L 03/13/25 17:09 C-Reactive Protein 71.3 mg/L (0.0-4.9) H 03/13/25 15: Total Protein 7.1 g/dL (6.6-8.7) 03/13/25 15: Albumin 3.8 g/dL (3.5-5.2) 03/13/25 15: Globulin 3.3 g/dL (1.3-4.6) 03/13/25 15: Procalcitonin 0.65 ng/mL (0-0.5) H 03/13/25 15: Micro: Microbiology 03/13/25 15:29 Blood Culture - Preliminary Blood SPECIMEN COLLECTED 03/13/25 15:29 Blood Culture - Preliminary Blood SPECIMEN COLLECTED A&P Assessment and plan 1. Neutropenic fever: 2. AML (acute myeloblastic leukemia): Plan: 70-year-old male with a recent diagnosis of AML, status post recent induction chemo at [facility], discharged 1 week ago from the hospital. Records requested from [facility] with regards to chemo regimen and hospital course. Currently presenting here with fever and neutropenia Declines transfer to [facility] understanding the risks. He has been on levofloxacin prophylaxis as an outpatient. Currently localizing symptoms include a dry cough, chest x-ray negative for pneumonia. Obtain blood cultures. Obtain UA and urine culture. Obtain CT of the chest abdomen and pelvis given that he does report somewhat worsening pain over his baseline. Concern for potential typhlitis versus colitis. Started on empiric antibiotic coverage with piperacillin/tazobactam and vancomycin while pending all culture results as above. Trial of Neupogen 480 mcg over 3 days to assess for improvement in neutropenia. Discussed with patient we do not have any current inpatient oncology service, however we will discuss case with outpatient oncology here and try to get him a follow-up as an outpatient shortly after discharge. Noted to have thrombocytopenia platelet count of 32,000. No bleeding at this time. Closely monitor for any bleeding. If platelets continue to drop below 20,000, will likely transfuse platelets regardless of active bleeding, with a history of GAVE, he may be at a higher risk of GI bleed. Reverse isolation precautions DVT prophylaxis: SCDs only. Anticoagulation contraindicated related to thrombocytopenia. DNR/DNI. Patient makes his wishes abundantly clear that he would not want any CPR intubation or mechanical ventilation. If he deteriorates during the course of his admission here, he would like to be transition to comfort care management PDMP PDMP Reviewed: Not Reviewed Attestations Medical Necessity Statement*: Greater than 2 midnight stay is anticipated Coding Level of Care Code Acute Code for [facility] Diagnoses Neutropenic fever D70.9; R50.81 AML (acute myeloblastic leukemia) C92.00
[2025-03-13 18:36] VITALS: BP 110/53; PULSE 104; O2SAT 94
[2025-03-13 18:52] LABS: Glucose Urine UA Negative (Normal); Nitrate Urine Negative (Negative); Specific Gravity, Urine 1.026 (1.005-1.030)
[2025-03-13 19:52] VITALS: BP 121/69; PULSE 98; RESP 16; O2SAT 93
[2025-03-13 20:02] LABS: Respiratory Syncytial Virus Ce NEGATIVE (Negative); SARS-CoV-2 PCR NEGATIVE (Negative)
[2025-03-13 20:30] VITALS: BP 99/54; PULSE 90; RESP 16; TEMP 36.9; O2SAT 93
[2025-03-13 20:39] LABS: MRSA PCR OZH (swab) NOT DETECTED (Negative)
--- NOTE | 2025-03-13 20:49 | ECG_ITS ---
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 Measurements Intervals [place] Rate: 91 P: 64 NV: 147 QRS: 26 QRSD: 109 T: 59 QT: 373 QTc: 461 Interpretive Statements SINUS RHYTHM WITH OCCASIONAL VENTRICULAR PREMATURE COMPLEXES LOW QRS VOLTAGE IN PRECORDIAL LEADS [QRS DEFLECTION < 1.0 mV IN CHEST LEADS] INCOMPLETE RIGHT BUNDLE BRANCH BLOCK [90+ ms QRS DURATION, TERMINAL R IN V1/V2, 40+ ms S IN I/aVL/V4/V5/V6] Compared to ECG 03/13/2025 16:57:45 Ventricular premature complex(es) now present Low QRS voltage now present Sinus tachycardia no longer present T-wave abnormality no longer present Electronically Signed On 03-14-2025 22:21:07 VICE PRESIDENT OF PRODUCT MARKETING by Kobe Angeles M.D. [email or web address]
[2025-03-13 20:54] VITALS: BMI 21.8
[2025-03-13] MEDS: acetaminophen 1,000 MG/100 ML PIGGYBACK 400 MG IV (21:33)
[2025-03-13 21:57] LABS: Troponin 5 6HR 9.68 ng/L (0-15); Troponin 5 6HR Delta 1.68 ng/L (0-12)
[2025-03-13 22:23] LABS: Coronavirus 229E,HKU1,NL63,OC4 Not Detected (NOT DETECT); Parainfluenza Virus Type 1 Not Detected (NOT DETECT); Parainfluenza Virus Type 2 Not Detected (NOT DETECT); Parainfluenza Virus Type 3 Not Detected (NOT DETECT); Parainfluenza Virus Type 4 Not Detected (NOT DETECT); SARS-COV-2 Not Detected (NOT DETECT)
[2025-03-13] MEDS: piperacillin-tazobactam 3.375 GM in sodium chloride 0.9% (plus) 50 ML IV (23:38)
[2025-03-14] VITALS (16 sets, daily range): BP systolic 92–116; BP diastolic 50–73; PULSE 65–106; RESP 15–20; TEMP 36.5–39.5; O2SAT 91–97
[2025-03-14] MEDS: acetaminophen 1,000 MG/100 ML PIGGYBACK 400 MG IV ×3 (04:50→19:18)
[2025-03-14] MEDS: ondansetron 2 mg/ML SDV 2 mL 4 MG IVP ×2 (06:02→17:28)
[2025-03-14 06:07] LABS: Hematocrit 22.0 % (37-53); Hemoglobin 7.40 g/dL (11.27-16.99); Mean Corpuscular HGB Conc 33.6 g/dL (30-55); Mean Corpuscular Hemoglobin 32.6 pg (27-33); Mean Corpuscular Volume 96.9 fl (82-101); Nucleated Red Blood Cells % 0 %; Red Blood Count 2.27 10^6/uL (3.85-5.65)
[2025-03-14 06:21] LABS: Alanine Aminotransferase 12 U/L (0-41); Albumin Level 2.9 g/dL (3.5-5.2); Alkaline Phosphatase 46 U/L (40-130); Anion Gap 12.8 (5-19); Aspartate Amino Transferase 8 U/L (0-40); Blood Urea Nitrogen 13 mg/dL (8-23); Calcium 7.6 mg/dL (8.5-10.5); Carbon Dioxide 24 mmol/L (22-29); Chloride 107 mmol/L (98-107); Creatinine Clr Calc Pharmacy 83.0209; Globulin 3.0 g/dL (1.3-4.6); Glucose 116 mg/dL (65-115); Osmolality Calculated 291 mOsm/kg (285-295); Potassium 3.8 mmol/L (3.5-5.1); Sodium 140 mmol/L (136-145); Total Protein 5.9 g/dL (6.6-8.7)
[2025-03-14 06:28] LABS: Platelet Count 23 10^3/cmm (157-399); White Blood Count 0.63 10^3/uL (3.29-11.43)
--- NOTE | 2025-03-14 07:20 | PHA.VACGOAL ---
Vancomycin Goal - Goal Vancomycin Goal:: 10-15 mg/L Vancomycin Indication:: Other - Therapy Current therapy:: Pip/Tazo Day of therpy:: Day []of [] . Actual body weight (kg): 161 lb - Data Labs: WBC 0.63 10^3/uL (3.29-11.43) L* 03/14/25 05:43 RBC 2.27 10^6/uL (3.85-5.65) L 03/14/25 05:43 Hgb 7.40 g/dL (11.27-16.99) L 03/14/25 05:43 Hct 22.0 % (37-53) L 03/14/25 05:43 MCV 96.9 fl (82-101) 03/14/25 05:43 MCH 32.6 pg (27-33) 03/14/25 05:43 MCHC 33.6 g/dL (30-55) 03/14/25 05:43 RDW 16.7 % (12.1-15.1) H 03/14/25 05:43 Sodium 140 mmol/L (136-145) 03/14/25 05:43 Potassium 3.8 mmol/L (3.5-5.1) 03/14/25 05:43 Chloride 107 mmol/L (98-107) 03/14/25 05:43 Carbon Dioxide 24 mmol/L (22-29) 03/14/25 05:43 Anion Gap 12.8 (5-19) 03/14/25 05:43 BUN 13 mg/dL (8-23) 03/14/25 05:43 Creatinine 0.9 mg/dL (0.7-1.2) 03/14/25 05:43 GFR Calculation 83.7 mL/min (90-130) L 03/14/25 05:43 Last dialysis session:: N/A Treatment plan:: new consult Regimen:: STARTED ON MAINTENANCE DOSE OF 1250 MG Q12H Follow up:: WILL CONTINUE TO MONITOR AND FOLLOW UP DAILY
[2025-03-14] MEDS: piperacillin-tazobactam 3.375 GM in sodium chloride 0.9% (plus) 50 ML IV ×2 (09:12→21:33)
--- NOTE | 2025-03-14 09:22 | PC.CHAP ---
Pastoral Care Encounter/Spiritual Assessment Type of Contact [] Declined firer watertender visit [] Patient/Family/Request visit [] Outpatient visit [] Follow-up visit [] Physician referral [] Code/Alert [] Routine visit [] Staff referral [] Actively dying [] Patient sleeping [] Family support [] [] Out of room [] Palliative care [] [] Receiving care in room [] Pre-surgical visit [] Trauma [] Long length of stay [] ICU visit [x] Other:Contact precautions. No visit. Relational/Emotional Strength [] Patient feels connected with others/family/visitors/staff [] Distress [] Loneliness/isolation [] Abandonment Spirituality of Patient [] Person of Ann [] Attends Restorationist of their Ann [] Believes in Prayer [] Reads Bible or Orthodox materials [] There are Spiritual issues to be addressed Meat Grinder Interventions [] Prayer [] Active listening [] Non-anxious presence [] Spiritual/emotional support [] Crisis/trauma care [] Spiritual counseling [] Bereavement support [] Provided bereavement packet [] Provided Bible/devotional materials [] Provided toy/stuffed animal, coloring book to patient or family member [] Provided Communion [] Anointing/Elizabeth [] Salvation [] Completed spiritual assessment [] Other: Impact on Illness or Injury [] Angry [] Fearful [] Anxious [] Often cries [] Exhaustion [] Unable to work [] Unable to attend anabaptism [] Unable to walk/stand [] Unable to read [] Unable to drive [] Unable to eat/drink [] Unable to sleep [] Unable to be with family [] Patient intubated [] Other: Summary Time spent with patient
--- NOTE | 2025-03-14 14:24 | PC.PHAR ---
Patient was prescribed medication and family member stated he took it on ThursdayMarch 06 and Thursday.Patient has not taken anything since.
--- NOTE | 2025-03-14 14:28 | PM.PN ---
Subjective Subjective: Patient complaining of nausea today. No diarrhea. WBC count morning further to 0.6. ANC of 200. Platelet count down to 23,000. Tmax 100.3 Fahrenheit last 24 hours. Patient has brought in his home medication list which shows that he was on doxycycline and ciprofloxacin prior to admission. Medications: Reviewed: Yes Vitals/I&O/Wt Last Vital Signs Temp 97.8 F 03/14/25 12:00 Pulse 69 03/14/25 12:00 Resp 16 03/14/25 12:00 BP 94/61 03/14/25 12:00 Pulse Ox 97 03/14/25 12:00 O2 Del Method Room Air 03/14/25 12:00 03/13/25 03/14/25 03/14/25 22:59 06:59 14:59 Intake Total 1400 / 1400 1900 / 3300 1020 / 1020 Output Total 600 / 600 775 / 1375 200 / 200 Balance 800 / 800 1125 / 1925 820 / 820 Weight last 48 hrs Weight 73.028 kg Weight 73.028 kg Physical Exam Narrative: General: No acute distress, AO x3 HEENT: PERRLA, pupils bilaterally equal and reactive, pallors not present Chest: Normal vesicular breath sounds, no added sounds, equal good air entry bilaterally CVS: S1-S2 regular, no murmurs, no tachycardia, no gallops, no rubs Abdomen: Soft, nontender, no organomegaly, bowel sounds present Neuro: No focal deficits, no facial deformity, AO x3, power 5/5 in all limbs Data 03/14/25 05:43 03/14/25 05:43 Micro: Microbiology 03/13/25 15:29 Blood Culture - Preliminary Blood SPECIMEN COLLECTED 03/13/25 15:29 Blood Culture - Preliminary Blood SPECIMEN COLLECTED A&P Assessment and plan 1. Neutropenic fever: 2. AML (acute myeloblastic leukemia): Plan: 70-year-old male with a recent diagnosis of AML, status post recent induction chemo at [facility], discharged 1 week ago from the hospital. Records requested from [facility] with regards to chemo regimen and hospital course. Currently presenting here with fever and neutropenia Declines transfer to [facility] understanding the risks. He has been on levofloxacin prophylaxis as an outpatient. Currently localizing symptoms include a dry cough, chest x-ray negative for pneumonia. Obtain blood cultures. Obtain UA and urine culture. Obtain CT of the chest abdomen and pelvis given that he does report somewhat worsening pain over his baseline. Concern for potential typhlitis versus colitis. Started on empiric antibiotic coverage with piperacillin/tazobactam and vancomycin while pending all culture results as above. Trial of Neupogen 480 mcg over 3 days to assess for improvement in neutropenia. Discussed with patient we do not have any current inpatient oncology service, however we will discuss case with outpatient oncology here and try to get him a follow-up as an outpatient shortly after discharge. Noted to have thrombocytopenia platelet count of 32,000. No bleeding at this time. Closely monitor for any bleeding. If platelets continue to drop below 20,000, will likely transfuse platelets regardless of active bleeding, with a history of GAVE, he may be at a higher risk of GI bleed. Reverse isolation precautions DVT prophylaxis: SCDs only. Anticoagulation contraindicated related to thrombocytopenia. DNR/DNI. Patient makes his wishes abundantly clear that he would not want any CPR intubation or mechanical ventilation. If he deteriorates during the course of his admission here, he would like to be transition to comfort care management March 14, 2025 Continues to be neutropenic. WBC is 0.6, ANC 200. Had Neupogen 480 mcg over 3 days, discussed with oncology yesterday. Platelet count dropping to 23,000 today. Transfuse platelets today, patient with a history of GAVE, and risk of GI bleed. Add Zofran 4 mg every [address] of chest abdomen and pelvis without any consolidation or other abdominal signs of infection. No colitis. Blood culture pending. Urine analysis without signs of UTI. If fever curve continues to improve, and all cultures remain negative at 48 hours, may be able to transition to oral antibiotics and discharge PDMP PDMP Reviewed: Not Reviewed Attestations Medical Necessity Statement*: fever and neutropenia, ANC < 500 , pending cultures Coding Level of Care Code Acute Code for [facility] Diagnoses Neutropenic fever D70.9; R50.81 AML (acute myeloblastic leukemia) C92.00
[2025-03-14] MEDS: ATORVASTATIN 20 MG TABLET PO (17:29)
[2025-03-14] MEDS: sodium chloride 0.9% (100 ml) 100 ML 30 ML IV (22:07)
[2025-03-15 03:53] VITALS: BP 98/56; PULSE 86; RESP 16; TEMP 36.7; O2SAT 100
[2025-03-15] MEDS: piperacillin-tazobactam 3.375 GM in sodium chloride 0.9% (plus) 50 ML IV ×3 (05:17→20:34)
[2025-03-15] MEDS: ondansetron 2 mg/ML SDV 2 mL 4 MG IVP ×2 (05:42→14:12)
[2025-03-15 07:26] VITALS: BP 102/56; PULSE 97; RESP 17; TEMP 37.1; O2SAT 90
[2025-03-15 11:33] VITALS: BP 101/64; PULSE 83; RESP 17; TEMP 36.8; O2SAT 96
[2025-03-15 14:17] LABS: Hematocrit 21.9 % (37-53); Hemoglobin 7.20 g/dL (11.27-16.99); Mean Corpuscular HGB Conc 32.9 g/dL (30-55); Mean Corpuscular Hemoglobin 32.6 pg (27-33); Mean Corpuscular Volume 99.1 fl (82-101); Platelet Count 76 10^3/cmm (157-399); Red Blood Count 2.21 10^6/uL (3.85-5.65); White Blood Count 1.25 10^3/uL (3.29-11.43)
[2025-03-15 14:35] LABS: Alanine Aminotransferase 11 U/L (0-41); Albumin Level 3.2 g/dL (3.5-5.2); Alkaline Phosphatase 49 U/L (40-130); Anion Gap 15.4 (5-19); Aspartate Amino Transferase 8 U/L (0-40); Blood Urea Nitrogen 16 mg/dL (8-23); Calcium 8.1 mg/dL (8.5-10.5); Carbon Dioxide 24 mmol/L (22-29); Chloride 103 mmol/L (98-107); Creatinine Clr Calc Pharmacy 90.7148; Globulin 3.2 g/dL (1.3-4.6); Glucose 110 mg/dL (65-115); Osmolality Calculated 290 mOsm/kg (285-295); Potassium 3.4 mmol/L (3.5-5.1); Sodium 139 mmol/L (136-145); Total Protein 6.4 g/dL (6.6-8.7)
[2025-03-15 14:57] LABS: Slide Review Slide Review Perform; Total Cells Counted 100 (0-100)
[2025-03-15 14:58] LABS: Absolute Segmented Neutrophil 0.4 10/cmm (1.6-7.1); Anisocytosis 2+; Band Neutrophils Absolute 0.1 10^3/cmm (0.0-1.2)
--- NOTE | 2025-03-15 15:33 | PC.SOCIAL ---
IMM UPDATED IMM dated and initialed, copy placed in chart and copy given to patient
--- NOTE | 2025-03-15 16:02 | PM.HP ---
Providers/Chief Complaint Admitting Physician: Faby Shaffer MD Primary Care Provider: Stacey Lundy NP Chief Complaint: Fever 100.4-102.6 tired has iv access R forarm 20g History of Present Illness Srini Garcia is a 70 year old male Medications/Allergies Home Medications ?Medication ?Instructions ?Recorded ?Confirmed ?Last Taken ?Type lovastatin 40 mg tablet 40 mg PO QPM 06/14/24 03/14/25 Unknown History alprazolam 1 mg tablet 1 mg PO DAILY PRN anxiety 90 days 01/25/25 03/14/25 02/21/25 20:00 Rx #30 tabs clobetasol 0.05 % topical cream See Rx Instructions .Route .COMPLEX 02/22/25 03/14/25 Unknown History omeprazole 40 mg capsule,delayed 40 mg PO DAILY 02/22/25 03/14/25 02/21/25 20:00 History release ciprofloxacin HCl 500 mg tablet 500 mg PO BID 03/14/25 03/14/25 03/08/25 History doxycycline monohydrate 100 mg 100 mg PO BID 03/14/25 03/14/25 03/08/25 History capsule fluconazole 200 mg tablet 200 mg PO BID 03/14/25 03/14/25 Unknown History ondansetron HCl 4 mg tablet See Rx Instructions .Route .COMPLEX 03/14/25 03/14/25 Unknown History pantoprazole 40 mg tablet,delayed 40 mg PO DAILY 03/14/25 03/14/25 03/08/25 History release valacyclovir 500 mg tablet 500 mg PO DAILY 03/14/25 03/14/25 Unknown History venetoclax 100 mg tablet 100 mg PO BID 03/14/25 03/14/25 03/08/25 History (Venclexta) Allergies Allergy/AdvReac Type Severity Reaction Status Date / Time No Known Allergies Allergy Verified 03/13/25 14:55 PFSH Acute PFSH: Medical History Urinary frequency Mixed hyperlipidemia Benign neoplasm of unknown origin Mole Eczema Facial lesion Environmental and seasonal allergies Other age-related cataract of both eyes Anxiety Encounter to establish care Prostate cancer screening Vitamin D deficiency Surgical History H/O colonoscopy History of melanoma excision Social History Smoking and tobacco/nicotine status: former use of tobacco/nicotine Vitals/I&O/Wt Last Vital Signs Temp 98.2 F 03/15/25 11:33 Pulse 83 03/15/25 11:33 Resp 17 03/15/25 11:33 BP 101/64 03/15/25 11:33 Pulse Ox 96 03/15/25 11:33 O2 Del Method Room Air 03/15/25 03:53 03/15/25 03/15/25 03/15/25 06:59 14:59 22:59 Intake Total 350 / 2617 660 / 660 Output Total 1000 / 1000 Balance 350 / 2217 -340 / -340 Weight last 48 hrs Weight 67.585 kg Weight 67.585 kg Weight 73.028 kg Data 03/15/25 14:12 03/15/25 14:12 Micro: Microbiology 03/13/25 17:36 Urine Culture - Preliminary Urine,Clean Catch 03/13/25 15:29 Blood Culture - Preliminary Blood NEGATIVE TO DATE 03/13/25 15:29 Blood Culture - Preliminary Blood NEGATIVE TO DATE A&P PDMP PDMP Reviewed: Not Reviewed Coding Level of Care Code Acute Code for [facility]
[2025-03-15 16:50] VITALS: BP 101/61; PULSE 90; RESP 17; TEMP 37.3; O2SAT 94
--- NOTE | 2025-03-15 17:35 | PM.PN ---
Subjective Subjective: Febrile to 103 Fahrenheit last evening. No fever since then. He received platelets yesterday, today platelet count is at 76,000. No signs of bleeding. Nausea is better. WBC count improving today at 1.25 ANC at 500. Hemoglobin 7.2. Medications: Reviewed: Yes Vitals/I&O/Wt Last Vital Signs Temp 99.1 F 03/15/25 16:50 Pulse 90 03/15/25 16:50 Resp 17 03/15/25 16:50 BP 101/61 03/15/25 16:50 Pulse Ox 94 03/15/25 16:50 O2 Del Method Room Air 03/15/25 03:53 03/15/25 03/15/25 03/15/25 06:59 14:59 22:59 Intake Total 350 / 2617 660 / 660 Output Total 1000 / 1000 Balance 350 / 2217 -340 / -340 Weight last 48 hrs Weight 67.585 kg Weight 67.585 kg Weight 73.028 kg Physical Exam Narrative: General: No acute distress, AO x3 HEENT: PERRLA, pupils bilaterally equal and reactive, pallors not present Chest: Normal vesicular breath sounds, no added sounds, equal good air entry bilaterally CVS: S1-S2 regular, no murmurs, no tachycardia, no gallops, no rubs Abdomen: Soft, nontender, no organomegaly, bowel sounds present Neuro: No focal deficits, no facial deformity, AO x3, power 5/5 in all limbs Data 03/15/25 14:12 03/15/25 14:12 Micro: Microbiology 03/13/25 17:36 Urine Culture - Preliminary Urine,Clean Catch 03/13/25 15:29 Blood Culture - Preliminary Blood NEGATIVE TO DATE 03/13/25 15:29 Blood Culture - Preliminary Blood NEGATIVE TO DATE A&P Assessment and plan 1. Neutropenic fever: 2. AML (acute myeloblastic leukemia): Plan: 70-year-old male with a recent diagnosis of AML, status post recent induction chemo at [facility], discharged 1 week ago from the hospital. Records requested from [facility] with regards to chemo regimen and hospital course. Currently presenting here with fever and neutropenia Declines transfer to [facility] understanding the risks. He has been on levofloxacin prophylaxis as an outpatient. Currently localizing symptoms include a dry cough, chest x-ray negative for pneumonia. Obtain blood cultures. Obtain UA and urine culture. Obtain CT of the chest abdomen and pelvis given that he does report somewhat worsening pain over his baseline. Concern for potential typhlitis versus colitis. Started on empiric antibiotic coverage with piperacillin/tazobactam and vancomycin while pending all culture results as above. Trial of Neupogen 480 mcg over 3 days to assess for improvement in neutropenia. Discussed with patient we do not have any current inpatient oncology service, however we will discuss case with outpatient oncology here and try to get him a follow-up as an outpatient shortly after discharge. Noted to have thrombocytopenia platelet count of 32,000. No bleeding at this time. Closely monitor for any bleeding. If platelets continue to drop below 20,000, will likely transfuse platelets regardless of active bleeding, with a history of GAVE, he may be at a higher risk of GI bleed. Reverse isolation precautions DVT prophylaxis: SCDs only. Anticoagulation contraindicated related to thrombocytopenia. DNR/DNI. Patient makes his wishes abundantly clear that he would not want any CPR intubation or mechanical ventilation. If he deteriorates during the course of his admission here, he would like to be transition to comfort care management March 14, 2025 Continues to be neutropenic. WBC is 0.6, ANC 200. Had Neupogen 480 mcg over 3 days, discussed with oncology yesterday. Platelet count dropping to 23,000 today. Transfuse platelets today, patient with a history of GAVE, and risk of GI bleed. Add Zofran 4 mg every [address] of chest abdomen and pelvis without any consolidation or other abdominal signs of infection. No colitis. Blood culture pending. Urine analysis without signs of UTI. If fever curve continues to improve, and all cultures remain negative at 48 hours, may be able to transition to oral antibiotics and discharge March ANC, WBc count improving. Hb 7.2, platelt improved post transfusion. febrile 103F last evening. No new symptoms otherwise PDMP PDMP Reviewed: Not Reviewed Attestations Medical Necessity Statement*: nees to be afberile x 24 hrs, WBC count improivng trend, all cx negative thus far ,monitor closely Coding Level of Care Code Acute Code for Chg Fwd Diagnoses Neutropenic fever D70.9; R50.81 AML (acute myeloblastic leukemia) C92.00
[2025-03-15] MEDS: saliva stimulant spray 30 mL Btl 1 SPRAY MUCOUS MEM (18:00)
[2025-03-15 19:29] VITALS: BP 102/56; PULSE 88; RESP 16; TEMP 37.4; O2SAT 94
[2025-03-16] VITALS (16 sets, daily range): BP systolic 92–127; BP diastolic 55–79; PULSE 59–95; RESP 15–18; TEMP 36.3–39.1; O2SAT 93–98
[2025-03-16] MEDS: piperacillin-tazobactam 3.375 GM in sodium chloride 0.9% (plus) 50 ML IV ×3 (04:59→22:47)
[2025-03-16 05:53] LABS: Mean Corpuscular HGB Conc 33.1 g/dL (30-55); Mean Corpuscular Hemoglobin 32.4 pg (27-33); Mean Corpuscular Volume 97.8 fl (82-101); Nucleated Red Blood Cells % 0 %; Platelet Count 66 10^3/cmm (157-399); Red Blood Count 1.82 10^6/uL (3.85-5.65); White Blood Count 1.11 10^3/uL (3.29-11.43)
[2025-03-16 06:14] LABS: Alanine Aminotransferase 9 U/L (0-41); Albumin Level 2.9 g/dL (3.5-5.2); Alkaline Phosphatase 47 U/L (40-130); Anion Gap 13.3 (5-19); Aspartate Amino Transferase 7 U/L (0-40); Blood Urea Nitrogen 12 mg/dL (8-23); Calcium 7.7 mg/dL (8.5-10.5); Carbon Dioxide 23 mmol/L (22-29); Chloride 104 mmol/L (98-107); Creatinine Clr Calc Pharmacy 90.7148; Globulin 2.6 g/dL (1.3-4.6); Glucose 103 mg/dL (65-115); Osmolality Calculated 284 mOsm/kg (285-295); Potassium 3.3 mmol/L (3.5-5.1); Sodium 137 mmol/L (136-145); Total Protein 5.5 g/dL (6.6-8.7)
[2025-03-16 06:30] LABS: Slide Review Slide Review Perform
[2025-03-16 06:32] LABS: Hematocrit 17.8 % (37-53); Hemoglobin 5.90 g/dL (11.27-16.99)
[2025-03-16] MEDS: ondansetron 2 mg/ML SDV 2 mL 4 MG IVP (06:43)
[2025-03-16 07:23] LABS: Mean Corpuscular HGB Conc 32.6 g/dL (30-55); Mean Corpuscular Hemoglobin 32.1 pg (27-33); Mean Corpuscular Volume 98.4 fl (82-101); Nucleated Red Blood Cells % 0 %; Platelet Count 66 10^3/cmm (157-399); Red Blood Count 1.93 10^6/uL (3.85-5.65); White Blood Count 1.09 10^3/uL (3.29-11.43)
[2025-03-16 07:48] LABS: Hemoglobin 6.20 g/dL (11.27-16.99)
[2025-03-16 07:49] LABS: Hematocrit 19.0 % (37-53)
[2025-03-16] MEDS: saliva stimulant spray 30 mL Btl 1 SPRAY MUCOUS MEM (11:48)
--- NOTE | 2025-03-16 13:09 | PC.NURSE ---
at approx. 1305 pts vitals signs were done, pt had 102.4 temp. stopped blood and notified , she ordered iv tylenol. will give and continue with blood infusion.
[2025-03-16] MEDS: acetaminophen 1,000 MG/100 ML PIGGYBACK 400 MG IV (13:50)
--- NOTE | 2025-03-16 14:01 | PM.PN ---
Subjective Subjective: Last febrile on 03/14/2025. WBC count improving at 1.09. ANC 520 Hemoglobin at 6.2. Medications: Reviewed: Yes Vitals/I&O/Wt Last Vital Signs Temp 99.4 F 03/16/25 11:40 Pulse 81 03/16/25 11:40 Resp 18 03/16/25 11:40 BP 115/66 03/16/25 11:40 Pulse Ox 98 03/16/25 11:40 O2 Del Method Room Air 03/16/25 11:02 03/15/25 03/16/25 03/16/25 22:59 06:59 14:59 Intake Total 490 / 1150 350 / 1500 220 / 220 Output Total 760 / 1760 Balance -270 / -610 350 / -260 220 / 220 Weight last 48 hrs Weight 67.585 kg Weight 67.585 kg Physical Exam Narrative: General: No acute distress, AO x3 HEENT: PERRLA, pupils bilaterally equal and reactive, pallors not present Chest: Normal vesicular breath sounds, no added sounds, equal good air entry bilaterally CVS: S1-S2 regular, no murmurs, no tachycardia, no gallops, no rubs Abdomen: Soft, nontender, no organomegaly, bowel sounds present Neuro: No focal deficits, no facial deformity, AO x3, power 5/5 in all limbs Data 03/16/25 07:14 03/16/25 05:25 Micro: Microbiology 03/13/25 17:36 Urine Culture - Final Urine,Clean Catch A&P Assessment and plan 1. Neutropenic fever: 2. AML (acute myeloblastic leukemia): Plan: 70-year-old male with a recent diagnosis of AML, status post recent induction chemo at [facility], discharged 1 week ago from the hospital. Records requested from [facility] with regards to chemo regimen and hospital course. Currently presenting here with fever and neutropenia Declines transfer to [facility] understanding the risks. He has been on levofloxacin prophylaxis as an outpatient. Currently localizing symptoms include a dry cough, chest x-ray negative for pneumonia. Obtain blood cultures. Obtain UA and urine culture. Obtain CT of the chest abdomen and pelvis given that he does report somewhat worsening pain over his baseline. Concern for potential typhlitis versus colitis. Started on empiric antibiotic coverage with piperacillin/tazobactam and vancomycin while pending all culture results as above. Trial of Neupogen 480 mcg over 3 days to assess for improvement in neutropenia. Discussed with patient we do not have any current inpatient oncology service, however we will discuss case with outpatient oncology here and try to get him a follow-up as an outpatient shortly after discharge. Noted to have thrombocytopenia platelet count of 32,000. No bleeding at this time. Closely monitor for any bleeding. If platelets continue to drop below 20,000, will likely transfuse platelets regardless of active bleeding, with a history of GAVE, he may be at a higher risk of GI bleed. Reverse isolation precautions DVT prophylaxis: SCDs only. Anticoagulation contraindicated related to thrombocytopenia. DNR/DNI. Patient makes his wishes abundantly clear that he would not want any CPR intubation or mechanical ventilation. If he deteriorates during the course of his admission here, he would like to be transition to comfort care management March 14, 2025 Continues to be neutropenic. WBC is 0.6, ANC 200. Had Neupogen 480 mcg over 3 days, discussed with oncology yesterday. Platelet count dropping to 23,000 today. Transfuse platelets today, patient with a history of GAVE, and risk of GI bleed. Add Zofran 4 mg every [address] of chest abdomen and pelvis without any consolidation or other abdominal signs of infection. No colitis. Blood culture pending. Urine analysis without signs of UTI. If fever curve continues to improve, and all cultures remain negative at 48 hours, may be able to transition to oral antibiotics and discharge March ANC, WBc count improving. Hb 7.2, platelt improved post transfusion. febrile 103F last evening. No new symptoms otherwise March 16, 2025 ANC improving at 520. WBC count 1.09. Hemoglobin falling to 6.2 today. Ordered for 2 units packed red blood cell. Platelet count remains stable. Afebrile last 24 hours. Continue piperacillin/tazobactam and vancomycin empirically. So far cultures are all negative. Continue fluconazole and Valtrex prophylaxis. Recheck H&H posttransfusion. Continue Neupogen. PDMP PDMP Reviewed: Not Reviewed Attestations Medical Necessity Statement*: Ongoing need for blood transfusion Coding Level of Care Code Acute Code for [facility] Fwd Diagnoses Neutropenic fever D70.9; R50.81 AML (acute myeloblastic leukemia) C92.00
[2025-03-16 23:32] LABS: Hematocrit 28.1 % (37-53); Hemoglobin 9.30 g/dL (11.27-16.99)
[2025-03-17] VITALS (7 sets, daily range): BP systolic 95–122; BP diastolic 57–69; PULSE 63–95; RESP 15–18; TEMP 36.6–39.3; O2SAT 90–100
[2025-03-17] MEDS: acetaminophen 1,000 MG/100 ML PIGGYBACK 400 MG IV ×2 (00:18→12:42)
[2025-03-17 06:02] LABS: Hematocrit 23.1 % (37-53); Hemoglobin 7.60 g/dL (11.27-16.99); Mean Corpuscular HGB Conc 32.9 g/dL (30-55); Mean Corpuscular Hemoglobin 32.2 pg (27-33); Mean Corpuscular Volume 97.9 fl (82-101); Nucleated Red Blood Cells % 0 %; Platelet Count 54 10^3/cmm (157-399); Red Blood Count 2.36 10^6/uL (3.85-5.65); White Blood Count 1.36 10^3/uL (3.29-11.43)
[2025-03-17 06:20] LABS: Alanine Aminotransferase 20 U/L (0-41); Albumin Level 2.9 g/dL (3.5-5.2); Alkaline Phosphatase 60 U/L (40-130); Anion Gap 12.6 (5-19); Aspartate Amino Transferase 17 U/L (0-40); Blood Urea Nitrogen 10 mg/dL (8-23); Calcium 7.9 mg/dL (8.5-10.5); Carbon Dioxide 24 mmol/L (22-29); Chloride 107 mmol/L (98-107); Creatinine Clr Calc Pharmacy 95.5907; Globulin 2.8 g/dL (1.3-4.6); Glucose 118 mg/dL (65-115); Osmolality Calculated 290 mOsm/kg (285-295); Potassium 3.6 mmol/L (3.5-5.1); Sodium 140 mmol/L (136-145); Total Protein 5.7 g/dL (6.6-8.7)
[2025-03-17] MEDS: piperacillin-tazobactam 3.375 GM in sodium chloride 0.9% (plus) 50 ML IV (06:47)
[2025-03-17 07:19] LABS: Slide Review Slide Review Perform
--- NOTE | 2025-03-17 08:30 | CT_ITS ---
WS: [id number] CT CHEST, ABDOMEN, AND PELVIS TECHNIQUE: Contrast-enhanced CT of the chest, abdomen, and pelvis with coronal and sagittal reformatted images. CLINICAL INFORMATION: persistent fever, neutropenia COMPARISON: None. DLP: 818.[address] scans at [facility] use at least one of these dose optimization techniques: automated exposure control; mA and/or kV adjustment per patient size (includes targeted exams where dose is matched to clinical indication); or iterative reconstruction. CT CHEST: Lungs are well aerated. No focal consolidation. Trace LEFT pleural fluid with slight LEFT basilar atelectasis. Aortic calcification. Normal caliber thoracic aorta. No mediastinal or hilar lymphadenopathy. No axillary lymphadenopathy. Mild thoracic curve and kyphosis. CT ABDOMEN AND PELVIS: A few incidental hepatic cysts. Gallbladder is contracted. Normal portal vein and splenic vein. Normal pancreatic parenchymal enhancement. Normal splenic enhancement. Small esophageal hiatal hernia. Air-fluid level in the stomach. Normal pancreatic parenchymal enhancement. Celiac and SMA are patent. Normal caliber abdominal aorta. Mild aortic calcification. Adrenal glands are normal. No hydronephrosis. Enlarged heterogeneously enhancing prostate measuring 5.1 cm. Recommend correlation PSA. Diffuse bladder wall thickening with enhancement can be seen with cystitis or bladder outlet obstruction. Small cystocele. Small amount of free fluid in the pelvis. No evidence of large or small bowel obstruction. A few air-fluid levels in normal caliber transverse colon. Mild enhancement of the distal small bowel can be seen with ileitis/small bowel enteritis. This is equivocal. Recommend correlation with clinical symptoms. Similar-appearing enhancement in the cecum and RIGHT colon. No other suspicious findings. Advanced disc narrowing L5-S1 with disc osteophyte complex. CT/CT chest abdpel w/*[id number] IMPRESSION: 1. Tiny LEFT pleural effusion with slight atelectasis LEFT lung base 2. Enlarged prostate. Recommend correlation PSA. 3. Diffuse bladder wall thickening with enhancement can be seen with cystitis and bladder outlet obstruction. Small cystocele. 4. Small moderate free fluid in the pelvis. 5. Slight enhancement involving the distal small bowel can be seen with small bowel enteritis or ileitis. Slight similar-appearing enhancement in the RIGHT c olon and cecum. Recommend correlation with clinical symptoms. 6. No other acute findings.
--- NOTE | 2025-03-17 08:32 | USCV_ITS ---
Srini Garcia Age: 70 Gender: M : 1955 Exam Date: 03/17/2025 13:21 Ordering Phys: Faby Shaffer MD Technologist: KUSUM Exam Location: [facility] [place] Indication: Assess for dvt HISTORY: Assess for dvt PROCEDURES: Venous duplex imaging was performed in only the left upper extremity. The following venous structures were evaluated: internal jugular vein, subclavian vein, axillary vein, and brachial veins. In addition, the basilic vein and cephalic vein. FINDINGS: No evidence of deep vein thrombosis or superficial thrombophlebitis in the left upper extremity. CONCLUSIONS No evidence of thrombus of the left upper extremity veins. Rojelio Anderson MD (Electronically Signed) Final Date: 17 March 2025 15:18 S
--- NOTE | 2025-03-17 08:33 | P.PN_ITS ---
Subjective 2 Subjective: Tmax 102F during blood transfusion yesterday afternoon and again last night at midnight (not during transfusion) . Medications: Reviewed: Yes Vitals/I&O/Wt Last Vital Signs Temp 98.3 F 03/17/25 07:25 Pulse 71 03/17/25 07:25 Resp 15 03/17/25 07:25 BP 116/69 03/17/25 07:25 Pulse Ox 95 03/17/25 07:25 O2 Del Method Room Air 03/17/25 07:25 03/16/25 03/17/25 03/17/25 22:59 06:59 14:59 Intake Total 470 / 1440 450 / 1890 Output Total 1500 / 1500 200 / 1700 Balance -1030 / -60 250 / 190 Weight last 48 hrs Weight 77.474 kg Weight 67.585 kg Physical Exam 2 Narrative: General: No acute distress, AO x3 HEENT: PERRLA, pupils bilaterally equal and reactive, pallors not present Chest: Normal vesicular breath sounds, no added sounds, equal good air entry bilaterally CVS: S1-S2 regular, no murmurs, no tachycardia, no gallops, no rubs Abdomen: Soft, nontender, no organomegaly, bowel sounds present Neuro: No focal deficits, no facial deformity, AO x3, power 5/5 in all limbs Data 03/17/25 05:22 03/17/25 05:22 Micro: Microbiology 03/13/25 17:36 Urine Culture - Final Urine,Clean Catch A&P Assessment and plan 1. Neutropenic fever: 2. AML (acute myeloblastic leukemia): Plan: 70-year-old male with a recent diagnosis of AML, status post recent induction chemo at [facility], discharged 1 week ago from the hospital. Records requested from [facility] with regards to chemo regimen and hospital course. Currently presenting here with fever and neutropenia Declines transfer to [facility] understanding the risks. He has been on levofloxacin prophylaxis as an outpatient. Currently localizing symptoms include a dry cough, chest x-ray negative for pneumonia. Obtain blood cultures. Obtain UA and urine culture. Obtain CT of the chest abdomen and pelvis given that he does report somewhat worsening pain over his baseline. Concern for potential typhlitis versus colitis. Started on empiric antibiotic coverage with piperacillin/tazobactam and vancomycin while pending all culture results as above. Trial of Neupogen 480 mcg over 3 days to assess for improvement in neutropenia. Discussed with patient we do not have any current inpatient oncology service, however we will discuss case with outpatient oncology here and try to get him a follow-up as an outpatient shortly after discharge. Noted to have thrombocytopenia platelet count of 32,000. No bleeding at this time. Closely monitor for any bleeding. If platelets continue to drop below 20,000, will likely transfuse platelets regardless of active bleeding, with a history of GAVE, he may be at a higher risk of GI bleed. Reverse isolation precautions DVT prophylaxis: SCDs only. Anticoagulation contraindicated related to thrombocytopenia. DNR/DNI. Patient makes his wishes abundantly clear that he would not want any CPR intubation or mechanical ventilation. If he deteriorates during the course of his admission here, he would like to be transition to comfort care management March 14, 2025 Continues to be neutropenic. WBC is 0.6, ANC 200. Had Neupogen 480 mcg over 3 days, discussed with oncology yesterday. Platelet count dropping to 23,000 today. Transfuse platelets today, patient with a history of GAVE, and risk of GI bleed. Add Zofran 4 mg every [address] of chest abdomen and pelvis without any consolidation or other abdominal signs of infection. No colitis. Blood culture pending. Urine analysis without signs of UTI. If fever curve continues to improve, and all cultures remain negative at 48 hours, may be able to transition to oral antibiotics and discharge March ANC, WBc count improving. Hb 7.2, platelt improved post transfusion. febrile 103F last evening. No new symptoms otherwise March 16, 2025 ANC improving at 520. WBC count 1.09. Hemoglobin falling to 6.2 today. Ordered for 2 units packed red blood cell. Platelet count remains stable. Afebrile last 24 hours. Continue piperacillin/tazobactam and vancomycin empirically. So far cultures are all negative. Continue fluconazole and Valtrex prophylaxis. Recheck H&H posttransfusion. Continue Neupogen. Mar 17, 2025 ANC improving at 650, Hb 7.6 today, TLC 1.36. Platelet count stable. Urine cx blood cx negative to date. No significant mucositis. on empiric treatment with Zosyna and vancomycin. Persisting fever at this point may be related to resolving neutropenia, related to known myeloid malignancy. Less likely unaddressed infection however with recent induction chemo, oncology recommends repeating imaging with improving counts to assess for interval lung infiltrates, hepatosplenic candidiasis. Additionally will check LE duplex to evalute for DVT. Further course dependent on results of this testing. Canot trial NSAIDs due to h/o GAVE. PDMP PDMP Reviewed: Not Reviewed Attestations 2 Medical Necessity Statement*: persisting fever 102F Coding Level of Care Code Acute Code for Ch[facility] Fwd Diagnoses Neutropenic fever D70.9; R50.81 AML (acute myeloblastic leukemia) C92.00
[2025-03-17] MEDS: iohexol 350 mg/mL 500 mL Btl (per mL) IV (09:47)
--- NOTE | 2025-03-17 09:53 | PC.SOCIAL ---
IMM UPDATED IMM dated and initialed, copy given to patient and copy placed in chart.
--- NOTE | 2025-03-17 13:42 | USCV_ITS ---
Srini Garcia Age: 70 Gender: M : 1955 Exam Date: 03/17/2025 14:33 Ordering Phys: Faby Shaffer MD Technologist: Exam Location: [facility] [place] Indication: assess for dvt HISTORY: assess for dvt PROCEDURES: Venous duplex imaging was performed in bilateral lower extremities. Serial compression, augmentation maneuvers, and spectral Doppler flow evaluation were performed. FINDINGS: No evidence of DVT seen in any vessel visualized at this time. CONCLUSIONS No evidence of right lower extremity DVT. No evidence of left lower extremity DVT. Prominent lymph node Right groin with persistent fatty hilum measuring 2.1 x 1.7cm non specific but may be reactive Rojelio Anderson MD (Electronically Signed) Final Date: 17 March 2025 15:16 S
[2025-03-17] MEDS: MEROPENEM 2,000 MG in sodium chloride 0.9% (plus) 50 ML 100 MG IV ×2 (15:23→20:38)
[2025-03-17] MEDS: ondansetron 2 mg/ML SDV 2 mL 4 MG IVP (20:39)
[2025-03-18] VITALS: BP 110/56; PULSE 102; RESP 16; TEMP 38.8; O2SAT 90
[2025-03-18 04:00] VITALS: BP 110/61; PULSE 68; RESP 17; TEMP 37.1; O2SAT 94
[2025-03-18] MEDS: MEROPENEM 2,000 MG in sodium chloride 0.9% (plus) 50 ML 100 MG IV ×3 (04:52→20:30)
[2025-03-18] MEDS: ondansetron 2 mg/ML SDV 2 mL 4 MG IVP ×3 (04:52→20:29)
[2025-03-18 07:38] VITALS: BP 103/58; PULSE 74; RESP 15; TEMP 37.3; O2SAT 97
--- NOTE | 2025-03-18 08:50 | PC.NURSE ---
Vanc Trough drawn after vanc was given. Per Tara in pharmacy, go ahead and give morning dose of vanc and redraw vanc trough prior to evening dose.
[2025-03-18 08:57] LABS: Hematocrit 23.2 % (37-53); Hemoglobin 7.40 g/dL (11.27-16.99); Mean Corpuscular HGB Conc 31.9 g/dL (30-55); Mean Corpuscular Hemoglobin 31.2 pg (27-33); Mean Corpuscular Volume 97.9 fl (82-101); Nucleated Red Blood Cells % 0 %; Platelet Count 61 10^3/cmm (157-399); Positive M 1; Red Blood Count 2.37 10^6/uL (3.85-5.65); White Blood Count 1.10 10^3/uL (3.29-11.43)
[2025-03-18 09:18] LABS: Alanine Aminotransferase 20 U/L (0-41); Albumin Level 2.9 g/dL (3.5-5.2); Alkaline Phosphatase 54 U/L (40-130); Anion Gap 14.2 (5-19); Aspartate Amino Transferase 12 U/L (0-40); Blood Urea Nitrogen 12 mg/dL (8-23); Calcium 7.8 mg/dL (8.5-10.5); Carbon Dioxide 23 mmol/L (22-29); Chloride 105 mmol/L (98-107); Creatinine Clr Calc Pharmacy 95.5907; Globulin 2.9 g/dL (1.3-4.6); Glucose 99 mg/dL (65-115); Osmolality Calculated 288 mOsm/kg (285-295); Potassium 3.2 mmol/L (3.5-5.1); Sodium 139 mmol/L (136-145); Total Protein 5.8 g/dL (6.6-8.7)
[2025-03-18 11:10] VITALS: BP 103/58; PULSE 84; RESP 16; TEMP 39.4; O2SAT 94
--- NOTE | 2025-03-18 14:21 | PM.PN ---
Subjective Subjective: Febrile to 102.9 Fahrenheit. Patient developed several episodes of diarrhea overnight. Medications: Reviewed: Yes Vitals/I&O/Wt Last Vital Signs Temp 102.9 F H 03/18/25 11:10 Pulse 84 03/18/25 11:10 Resp 16 03/18/25 11:10 BP 103/58 03/18/25 11:10 Pulse Ox 94 03/18/25 11:10 O2 Del Method Room Air 03/18/25 11:10 03/17/25 03/18/25 03/18/25 22:59 06:59 14:59 Intake Total 1040 / 1260 50 / 1310 780 / 780 Output Total 400 / 400 225 / 225 Balance 640 / 860 50 / 910 555 / 555 Weight last 48 hrs Weight 77.474 kg Weight 77.474 kg Physical Exam Narrative: General: No acute distress, AO x3 HEENT: PERRLA, pupils bilaterally equal and reactive, pallors not present Chest: Normal vesicular breath sounds, no added sounds, equal good air entry bilaterally CVS: S1-S2 regular, no murmurs, no tachycardia, no gallops, no rubs Abdomen: Soft, nontender, no organomegaly, bowel sounds present Neuro: No focal deficits, no facial deformity, AO x3, power 5/5 in all limbs Data 03/18/25 08:19 03/18/25 08:19 A&P Assessment and plan 1. Neutropenic fever: 2. AML (acute myeloblastic leukemia): Plan: 70-year-old male with a recent diagnosis of AML, status post recent induction chemo at [facility], discharged 1 week ago from the hospital. Records requested from [facility] with regards to chemo regimen and hospital course. Currently presenting here with fever and neutropenia Declines transfer to [facility] understanding the risks. He has been on levofloxacin prophylaxis as an outpatient. Currently localizing symptoms include a dry cough, chest x-ray negative for pneumonia. Obtain blood cultures. Obtain UA and urine culture. Obtain CT of the chest abdomen and pelvis given that he does report somewhat worsening pain over his baseline. Concern for potential typhlitis versus colitis. Started on empiric antibiotic coverage with piperacillin/tazobactam and vancomycin while pending all culture results as above. Trial of Neupogen 480 mcg over 3 days to assess for improvement in neutropenia. Discussed with patient we do not have any current inpatient oncology service, however we will discuss case with outpatient oncology here and try to get him a follow-up as an outpatient shortly after discharge. Noted to have thrombocytopenia platelet count of 32,000. No bleeding at this time. Closely monitor for any bleeding. If platelets continue to drop below 20,000, will likely transfuse platelets regardless of active bleeding, with a history of GAVE, he may be at a higher risk of GI bleed. Reverse isolation precautions DVT prophylaxis: SCDs only. Anticoagulation contraindicated related to thrombocytopenia. DNR/DNI. Patient makes his wishes abundantly clear that he would not want any CPR intubation or mechanical ventilation. If he deteriorates during the course of his admission here, he would like to be transition to comfort care management March 14, 2025 Continues to be neutropenic. WBC is 0.6, ANC 200. Had Neupogen 480 mcg over 3 days, discussed with oncology yesterday. Platelet count dropping to 23,000 today. Transfuse platelets today, patient with a history of GAVE, and risk of GI bleed. Add Zofran 4 mg every [address] of chest abdomen and pelvis without any consolidation or other abdominal signs of infection. No colitis. Blood culture pending. Urine analysis without signs of UTI. If fever curve continues to improve, and all cultures remain negative at 48 hours, may be able to transition to oral antibiotics and discharge March ANC, WBc count improving. Hb 7.2, platelt improved post transfusion. febrile 103F last evening. No new symptoms otherwise March 16, 2025 ANC improving at 520. WBC count 1.09. Hemoglobin falling to 6.2 today. Ordered for 2 units packed red blood cell. Platelet count remains stable. Afebrile last 24 hours. Continue piperacillin/tazobactam and vancomycin empirically. So far cultures are all negative. Continue fluconazole and Valtrex prophylaxis. Recheck H&H posttransfusion. Continue Neupogen. Mar 17, 2025 ANC improving at 650, Hb 7.6 today, TLC 1.36. Platelet count stable. Urine cx blood cx negative to date. No significant mucositis. on empiric treatment with Zosyna and vancomycin. Persisting fever at this point may be related to resolving neutropenia, related to known myeloid malignancy. Less likely unaddressed infection however with recent induction chemo, oncology recommends repeating imaging with improving counts to assess for interval lung infiltrates, hepatosplenic candidiasis. Additionally will check LE duplex to evalute for DVT. Further course dependent on results of this testing. Canot trial NSAIDs due to h/o GAVE. Mar 18, 2025 Patient continues to be persistently febrile with Tmax of 102.9 Fahrenheit. He had several episodes of diarrhea overnight. C. difficile testing ordered, currently pending. He wishes to reduce his pill burden and did not take his Valtrex or fluconazole this morning. He will switch fluconazole to IV as antifungal prophylaxis will be crucial at this time. Encouraged to trial p.o. Valtrex, time changed to evening instead of morning. CT of the chest abdomen and pelvis repeated yesterday with contrast Had shown a tiny left pleural effusion with atelectasis. There was slight enhancement involving the distal small bowel possibly enteritis or ileitis. Do not believe this to be a new infection. Likely with the white blood cell count now improving, the ileitis is now enhancing on CT due to immune response. Similar-appearing enhancement in the right colon and cecum , possible typhlitis again likely present on admission, now evident on CT imaging given improvement in white blood cell count and immune response. Zosyn was changed to meropenem yesterday. Continue vancomycin will continue same. C. difficile testing pending. Check stool PCR. Blood cultures remain negative to date. Lower extremity venous duplex and left upper extremity duplex negative for DVT. Noted right inguinal lymphadenopathy, suspect may be malignant. ANC dropped to less than 500 today. Resume Neupogen for additional 3 days. Persisting fever at this time, cause remains uncertain. This may be related to increasing Bone marrow activity, underlying myeloid malignancy. So far, no evident source of untreated infection. Patient again reports today that he would not be returning to [place] and is not interested in pursuing any chemotherapy or bone marrow transplant. Extensively discussed his goals of care and brought up the option of hospice should he decide not to pursue any further cancer treatment. With untreated AML his life expectancy is not expected to be beyond a few months. While he states he does not want cancer treatment, he still wants to continue blood transfusion and antibiotics. He will take some time to think about his options. PDMP PDMP Reviewed: Not Reviewed Attestations Medical Necessity Statement*: Ongoing need for IV antibiotics, dropping ANC again, persistent fever Coding Level of Care Code Acute Code for [facility] Fwd Diagnoses Neutropenic fever D70.9; R50.81 AML (acute myeloblastic leukemia) C92.00
[2025-03-18] MEDS: fluconazole premix 400 MG/200 ML PIGGYBACK 100 MG IV (15:56)
[2025-03-18 16:42] VITALS: BP 104/57; PULSE 71; RESP 17; TEMP 38.8; O2SAT 93
[2025-03-18 19:32] LABS: C.Diff PCR (Lab) NEGATIVE (Negative)
[2025-03-18 20:00] VITALS: BP 106/63; PULSE 71; RESP 16; TEMP 37.5; O2SAT 93
[2025-03-19] VITALS (12 sets, daily range): BP systolic 95–127; BP diastolic 42–90; PULSE 70–87; RESP 16–21; TEMP 37.1–39.4; O2SAT 88–96
--- NOTE | 2025-03-19 03:52 | PC.NURSE ---
Patient. had a fever of 102.,Patient refused PO tylenol for fever.I spoke to DR. Louis about the situation. DR Louis suggested giving the Patient an ice pack and cool rags to help with symptoms.
[2025-03-19] MEDS: MEROPENEM 2,000 MG in sodium chloride 0.9% (plus) 50 ML 100 MG IV (04:44)
[2025-03-19] MEDS: ondansetron 2 mg/ML SDV 2 mL 4 MG IVP ×2 (04:44→15:07)
[2025-03-19 05:22] LABS: Hematocrit 21.8 % (37-53); Hemoglobin 7.20 g/dL (11.27-16.99); Mean Corpuscular HGB Conc 33.0 g/dL (30-55); Mean Corpuscular Hemoglobin 32.1 pg (27-33); Mean Corpuscular Volume 97.3 fl (82-101); Nucleated Red Blood Cells % 0 %; Platelet Count 93 10^3/cmm (157-399); Red Blood Count 2.24 10^6/uL (3.85-5.65)
[2025-03-19 05:51] LABS: Alanine Aminotransferase 15 U/L (0-41); Albumin Level 2.8 g/dL (3.5-5.2); Alkaline Phosphatase 49 U/L (40-130); Anion Gap 13.3 (5-19); Aspartate Amino Transferase 13 U/L (0-40); Blood Urea Nitrogen 11 mg/dL (8-23); Calcium 7.9 mg/dL (8.5-10.5); Carbon Dioxide 24 mmol/L (22-29); Chloride 104 mmol/L (98-107); Creatinine Clr Calc Pharmacy 95.5907; Globulin 2.8 g/dL (1.3-4.6); Glucose 117 mg/dL (65-115); Osmolality Calculated 286 mOsm/kg (285-295); Potassium 3.3 mmol/L (3.5-5.1); Sodium 138 mmol/L (136-145); Total Protein 5.6 g/dL (6.6-8.7)
[2025-03-19 06:00] LABS: Slide Review Slide Review Perform
[2025-03-19 06:01] LABS: White Blood Count 0.70 10^3/uL (3.29-11.43)
[2025-03-19] MEDS: pantoprazole 40 mg SDV 80 MG IVP (15:07)
[2025-03-19] MEDS: morphine 4 mg/mL SDV 1 mL 2 MG IVP (15:07)
--- NOTE | 2025-03-19 17:57 | P.DS_ITS ---
Discharge Providers Date of Admission: 03/13/25 18:49 Date of Discharge: March 19, 2025 Attending Provider at Admission: Faby Shaffer MD Attending Provider at Discharge: Faby Shaffer MD Primary Care Provider: Stacey Lundy NP Diagnoses at Discharge Discharge Diagnosis 1. Neutropenic fever: 2. AML (acute myeloblastic leukemia): Reason for Visit Reason for Visit: Fever 100.4-102.6 tired has iv access R forarm 20g Brief History: 70 year old male with a recent diagnosis of AML. He had presented to the emergency room on February 22, 2025 with a leukocytosis of 32,000 with blast cells and was transferred to [facility] for concern for acute myelo blastic leukemia. The diagnosis was confirmed after transfer there. 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 He started induction chemotherapy with as azacitidine and venetoclax and was discharged with oral chemo which he discontinued 3 days ago as he was feeling very weak and felt that the chemo was giving him side effects. Per significant other he also discontinued his prescribed antibiotics ciprofloxacin doxycycline valacyclovir prophylaxis. He presented to the hospital on 03/13/2025 with fever and neutropenia. He was admitted to the hospital after he declined transfer to [facility]. We have discussed the importance of having his oncology team follow alongside given he had recently received induction chemotherapy, however he refused to transfer. He was treated with broad-spectrum antibiotics ini tially including Zosyn and vancomycin thereafter transition to meropenem and vancomycin. CT of the abdomen and pelvis was unremarkable at admission, however repeated on 03/17/2025 showed slight enhancement involving the distal small bowel suggestive of enteritis and right colon and cecum suggestive of possible typhlitis versus colitis. These findings were likely more evident on repeat CT given that his neutropenia was improving and he now had an immune response. Patient continued to have persistent fever during the admission course. He received blood transfusion with both packed red blood cells and platelets during the admission course. Additionally received Neupogen for neutropenia after discussion with oncology team here. Patient had an extensive goals of care discussion and actually refused any further malignancy treatment. He stated he was not interested in pursuing any further chemotherapy. He was not interested in returning to [place] for any further bone marrow testing to assess for response to induction chemo. He he stated he will not be getting a bone marrow transplant. He understood that without treatment AML is likely to be fatal in the upcoming weeks to months. Patient acknowledged understanding. He remained alert awake and oriented and made the decision to transition to hospice. He was discharged home on hospice in accordance with his wishes. Physical Exam Narrative: General: No acute distress, AO x3 HEENT: PERRLA, pupils bilaterally equal and reactive, pallors not present Chest: Normal vesicular breath sounds, no added sounds, equal good air entry bilaterally CVS: S1-S2 regular, no murmurs, no tachycardia, no gallops, no rubs Abdomen: Soft, nontender, no organomegaly, bowel sounds present Neuro: No focal deficits, no facial deformity, AO x3, power 5/5 in all limbs Discharge Data Studies Completed and Pending Completed Studies During Hospitalization Category Date Time Status CT chest abdomen pelvis [CT chest abdpel w/*[id number] Cat Scan 03/17/25 08:30 Completed ] Routine CT chest abdomen pelvis [[place] [id number] Cat Scan 03/13/25 18:21 Completed ] Stat XR chest 1V portable [id number] Stat Exams 03/13/25 16:09 [place] [id number] Stat Ultrasound 03/17/25 13:42 [place] [id number] Routine Ultrasound 03/17/25 08:32 Completed Pending at discharge Category Date Time Status Blood Culture Stat Lab 03/13/25 15:29 Results Blood Culture Stat Lab 03/17/25 10:57 Received Stool Culture - Enteric [Salmonella / Shigella / Campy] Lab 03/18/25 Ordered Routine Radiology Impressions Chest X-Ray 03/13/25 16:09 IMPRESSION: 1. No acute cardiopulmonary pathology. 2. No significant change from the prior study is appreciated. 3. 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 Chest/Abdomen/Pelvis CT 03/17/25 08:30 IMPRESSION: 1. Tiny LEFT pleural effusion with slight atelectasis LEFT lung base 2. Enlarged prostate. Recommend correlation PSA. 3. Diffuse bladder wall thickening with enhancement can be seen with cystitis and bladder outlet obstruction. Small cystocele. 4. Small moderate free fluid in the pelvis. 5. Slight enhancement involving the distal small bowel can be seen with small bowel enteritis or ileitis. Slight similar-appearing enhancement in the RIGHT colon and cecum. Recommend correlation with clinical symptoms. 6. No other acute findings. Laboratory Results WBC 0.70 10^3/uL (3.29-11.43) L* 03/19/25 05:08 RBC 2.24 10^6/uL (3.85-5.65) L 03/19/25 05:08 Hgb 7.20 g/dL (11.27-16.99) L 03/19/25 05:08 Hct 21.8 % (37-53) L 03/19/25 05:08 MCV 97.3 fl (82-101) 03/19/25 05:08 MCH 32.1 pg (27-33) 03/19/25 05:08 MCHC 33.0 g/dL (30-55) 03/19/25 05:08 RDW 17.0 % (12.1-15.1) H 03/19/25 05:08 Plt Count 93 10^3/cmm (157-399) L D 03/19/25 05:08 MPV 11.4 fL (7.4-10.4) H 03/19/25 05:08 Neut % (Auto) 30.0 % 03/19/25 05:08 Lymph % (Auto) 45.7 % 03/19/25 05:08 Coffey % (Auto) 24.3 % 03/19/25 05:08 Eos % (Auto) 0.0 % 03/19/25 05:08 Baso % (Auto) 0.0 % 03/19/25 05:08 Neut # (Auto) 0.21 10^3/uL (1.8-7.7) L* 03/19/25 05:08 Lymph # (Auto) 0.3 10^3/uL (0.8-4.8) L 03/19/25 05:08 Coffey # (Auto) 0.2 10^3/uL (0.2-0.9) 03/19/25 05:08 Eos # (Auto) 0.0 10^3/uL (0.0-0.8) 03/19/25 05:08 Baso # (Auto) 0.0 10^3/uL (0.0-0.1) 03/19/25 05:08 Nucleated RBC % (auto) 0 % 03/19/25 05:08 Total Counted 100 (0-100) 03/15/25 14:12 Atypical Lymphs % Not Reportable 03/15/25 14:12 Absolute Neutrophils 0.5 10^3/cmm (1.4-6.5) L* 03/15/25 14:12 Segmented Neutrophils 34 % 03/15/25 14:12 Band Neutrophils 6.0 % 03/15/25 14:12 Lymphocytes (Manual) 46 % 03/15/25 14:12 Monocytes (Manual) 11.0 % 03/15/25 14:12 Absolute Monocytes 0.1 10^3/cmm (0.1-0.6) 03/15/25 14:12 Eosinophils (Manual) 0 % 03/15/25 14:12 Absolute Eosinophils 0.0 10^3/cmm (0.0-0.7) 03/15/25 14:12 Basophils (Manual) 0.0 % 03/15/25 14:12 Absolute Basophils 0.0 10^3/cmm (0.0-0.2) 03/15/25 14:12 Metamyelocytes 2.0 % 03/15/25 14:12 Nucleated RBCs 1.0 /100WBC (0-1) 03/15/25 14:12 Nucleated RBCs # 0.0 /100WBC 03/19/25 05:08 Platelet Estimate Decreased (Normal) 03/15/25 14:12 Anisocytosis 2+ H 03/15/25 14:12 Sodium 138 mmol/L (136-145) 03/19/25 05:08 Potassium 3.3 mmol/L (3.5-5.1) L 03/19/25 05:08 Chloride 104 mmol/L (98-107) 03/19/25 05:08 Carbon Dioxide 24 mmol/L (22-29) 03/19/25 05:08 Anion Gap 13.3 (5-19) 03/19/25 05:08 BUN 11 mg/dL (8-23) 03/19/25 05:08 Creatinine 0.7 mg/dL (0.7-1.2) 03/19/25 05:08 GFR Calculation 111.8 mL/min (90-130) 03/19/25 05:08 Glucose 117 mg/dL (65-115) H 03/19/25 05:08 Calculated Osmolality 286 mOsm/kg (285-295) 03/19/25 05:08 Lactic Acid 0.9 mmol/L (0.5-2.2) 03/13/25 15:29 Calcium 7.9 mg/dL (8.5-10.5) L 03/19/25 05:08 Total Bilirubin 0.5 mg/dL (0.15-1.2) 03/19/25 05:08 AST 13 U/L (0-40) 03/19/25 05:08 ALT 15 U/L (0-41) 03/19/25 05:08 Alkaline Phosphatase 49 U/L (40-130) 03/19/25 05:08 Troponin T Baseline 8 ng/L (0-15) 03/13/25 15:29 Troponin T 120 Minute 6.55 ng/L (0-15) 03/13/25 17:09 Delta Troponin T -1.45 ABS# (0-10) L 03/13/25 17:09 Troponin T Hi Sens 6Hr 9.68 ng/L (0-15) 03/13/25 21:25 Troponin T Hi Sens 6Hr Delta 1.68 ng/L (0-12) 03/13/25 21:25 C-Reactive Protein 71.3 mg/L (0.0-4.9) H 03/13/25 15:29 Total Protein 5.6 g/dL (6.6-8.7) L 03/19/25 05:08 Albumin 2.8 g/dL (3.5-5.2) L 03/19/25 05:08 Globulin 2.8 g/dL (1.3-4.6) 03/19/25 05:08 Procalcitonin 0.65 ng/mL (0-0.5) H 03/13/25 15:29 Urine Color Yellow (Yellow) 03/13/25 17:36 Urine Appearance Clear (CLEAR) 03/13/25 17:36 Urine pH 5.5 (5-7) 03/13/25 17:36 Ur Specific [place] 1.026 (1.005-1.030) 03/13/25 17:36 Urine Protein 1+ (Negative) A 03/13/25 17:36 Urine Glucose (UA) Negative (Normal) 03/13/25 17:36 Urine Ketones Trace (Negative) 03/13/25 17:36 Urine Blood Negative (Negative) 03/13/25 17:36 Urine Nitrate Negative (Negative) 03/13/25 17:36 Urine Bilirubin Negative (Negative) 03/13/25 17:36 Urine Urobilinogen 0.2 mg/dL (Negative) 03/13/25 17:36 Ur Leukocyte Esterase Negative (Negative) 03/13/25 17:36 Urine RBC 0-2 /hpf (0-2) 03/13/25 17:36 Urine WBC 0-5 /hpf (0-5) 03/13/25 17:36 Ur Squamous Epith Cells 0-5 /hpf (0-5) 03/13/25 17:36 Amorphous Sediment Not Reportable 03/13/25 17:36 Urine Bacteria None seen /hpf (NONE) 03/13/25 17:36 Hyaline Casts 2.87 /lpf 03/13/25 17:36 Nasal MRSA (PCR) Not detected (Negative) 03/13/25 18:30 Vancomycin Trough 23.5 ug/mL (10-15) H 03/17/25 10:56 Adenovirus (PCR) Not detected (NOT DETECT) 03/13/25 17:36 C. pneumoniae DNA (PCR) Not detected (NOT DETECT) 03/13/25 17:36 C. difficile (PCR) Negative (Negative) 03/18/25 18:35 Coronavirus 229E (PCR) Not detected (NOT DETECT) 03/13/25 17:36 Human Metapneumovir PCR Not detected (NOT DETECT) 03/13/25 17:36 Influenza A (H1) PCR Not detected (NOT DETECT) 03/13/25 17:36 Influenza A (PCR) Negative (Negative) 03/13/25 17:36 Influ A (H1/09) PCR Not detected (NOT DETECT) 03/13/25 17:36 Influenza A (H3) PCR Not detected (NOT DETECT) 03/13/25 17:36 Influenza Type A (PCR) Not detected (NOT DETECT) 03/13/25 17:36 Influenza Type B (PCR) Negative (Negative) 03/13/25 17:36 Influenza Type B (PCR) Not detected (NOT DETECT) 03/13/25 17:36 M. pneumoniae (PCR) Not detected (NOT DETECT) 03/13/25 17:36 Parainfluenza 1 (PCR) Not detected (NOT DETECT) 03/13/25 17:36 Parainfluenza 2 (PCR) Not detected (NOT DETECT) 03/13/25 17:36 Parainfluenza 3 (PCR) Not detected (NOT DETECT) 03/13/25 17:36 Parainfluenza 4 (PCR) Not detected (NOT DETECT) 03/13/25 17:36 RSV (PCR) Negative (Negative) 03/13/25 17:36 RSV Type A (PCR) Not detected (NOT DETECT) 03/13/25 17:36 RSV Type B (PCR) Not detected (NOT DETECT) 03/13/25 17:36 Entero/Rhino (PCR) Not detected (NOT DETECT) 03/13/25 17:36 SARS-CoV-2 (PCR) Negative (Negative) 03/13/25 17:36 SARS-CoV-2 (PCR) Not detected (NOT DETECT) 03/13/25 17:36 Blood Type A Positive 03/19/25 09:53 Rho(D) Type Rh positive 03/19/25 09:53 Antibody Screen Negative 03/19/25 09:53 Crossmatch See Detail 03/19/25 09:53 Vitals Last Vital Signs Temp 100.1 F H 03/19/25 15:27 Pulse 87 03/19/25 15:27 Resp 16 03/19/25 15:27 BP 102/65 03/19/25 15:27 Pulse Ox 92 03/19/25 15:27 O2 Del Method Room Air 03/19/25 11:12 Discharge Plan Discharge Patient Disposition: Hospice - Home Condition: Stable Prescriptions: New diphenoxylate-atropine 2.5-0.025 mg Tablet 1 tab PO Q8H PRN (Reason: Diarrhea) 10 Days Qty: 30 0RF benzonatate 100 mg capsule 100 mg PO TID PRN (Reason: cough) 15 Days Qty: 30 0RF Continued alprazolam 1 mg tablet 1 mg PO DAILY PRN (Reason: anxiety) 90 Days Qty: 30 0RF omeprazole 40 mg capsule,delayed release(DR/EC) 40 mg PO DAILY ciprofloxacin HCl 500 mg tablet 500 mg PO BID doxycycline monohydrate 100 mg capsule 100 mg PO BID fluconazole 200 mg tablet 200 mg PO BID ondansetron HCl 4 mg tablet See Rx Instructions .ROUTE .COMPLEX Rx Instructions: Take 1 tablet (4 mg total) by mouth every 8 (eight) hours as needed for nausea or vomiting valacyclovir 500 mg tablet 500 mg PO DAILY clobetasol 0.05 % cream See Rx Instructions .ROUTE .COMPLEX Rx Instructions: APPLY TWICE DAILY TO RED, ITCHY AREAS NEEDED. USE NO MORE THAN 2 WEEKS PER MONTH. NOT FOR USE ON FACE, GROIN OR SKIN FOLDS Changed pantoprazole 40 mg tablet,delayed release (DR/EC) 40 mg PO BID 30 Days Qty: 60 0RF Discontinued lovastatin 40 mg tablet 40 mg PO QPM Patient Comments: patient has not taken in over 4 weeks Venclexta 100 mg tablet 100 mg PO BID Discharge Order = DC NOW: Discharge Order (Routine); Ordered 03/19/25 Ordered By: Faby Shaffer Referrals: [facility] [Occupational Therapist] Stacey Lundy NP [Primary Care Provider, Nurse Practitioner] - 4-7 days Referral Note: You will need to contact your primary care provider Thursday for a hospital discharge follow up in 4-7 days. Bennett Martinez MD [Hospitalist, Oncology] - 03/23/25 10:30 am Patient Instructions: Anemia - Oncology, Benzonatate (By mouth) ([place] Zonatuss), Diphenoxylate/Atropine (By mouth) (Lomotil, Lomocot), Neutropenia (DC) Discharge Attestations Time Spent in Discharge Care*: greater than 30 min Quality Metrics Clinical Quality Measures [ No reported AMI, CVA or VTE this stay] Coding Level of Care Code Acute Code for [facility] Fwd Diagnoses Neutropenic fever D70.9; R50.81 AML (acute myeloblastic leukemia) C92.00
== END 2025-03-19 15:29 | disposition hospice, home (50) | DRG 809 ==
LOC: ER 17:51 → MEDSURG 18:49
PROVIDERS: Student in an Organized Health Care Education/Training Program; Admitting Provider Student in an Organized Health Care Education/Training Program; Emergency Provider Emergency Medicine; PCP Nurse Practitioner Family; Visit Provider Student in an Organized Health Care Education/Training Program
DX: D70.8 Other neutropenia (principal); C92.00 Acute myeloblastic leukemia, not having achieved remission; E78.2 Mixed hyperlipidemia; F41.9 Anxiety disorder, unspecified; D69.6 Thrombocytopenia, unspecified; D63.0 Anemia in neoplastic disease; K31.819 Angiodysplasia of stomach and duodenum without bleeding; R50.81 Fever presenting with conditions classified elsewhere; Z79.899 Other long term (current) drug therapy; Z85.820 Personal history of malignant melanoma of skin; Z87.891 Personal history of nicotine dependence; R19.7 Diarrhea, unspecified
CPT/HCPCS: 36415; 36430; 71045; 71250; 71260; 74176; 74177; 80053; 80202; 81001; 83605; 84145; 84484; 85007; 85014; 85018; 85025; 86140; 86850; 86900; 86920; 87040; 87086; 87486; 87493; 87581; 87633; 87637; 93005; 93970; 93971; 96365; 96372; 96375; 99285; J0131; J0692; J1450; J2020; J2185; J2270; J2405; J2470; J2543; J3373; J7030; J7040; J9999; P9016; P9040; P9055; Q5101